=== PATIENT | male | born 1970 | race Caucasian/White ===

== ENCOUNTER 2017-03-10 11:55 | Day surgery (SDC) | payer OTHER ==
[2017-03-10 12:46] LABS: Anisocytosis Slight; Basophils # (A) 0.1 k/uL (0-0.2); Basophils % (A) 1 %; Eosinophils # (A) 0.5 k/uL (0-0.7); Eosinophils % (A) 6 %; HCT 31.1 % (39.0-53.0); HGB 9.2 gm/dL (13.0-17.5); Hypochromasia Marked; Lymphocytes # (A) 1.5 k/uL (1.0-4.8); Lymphocytes % (A) 18 %; MCH 25.8 pg (25.0-35.0); MCHC 29.5 g/dL (31.0-37.0); MCV 87.4 fL (80.0-100.0); Mean Platelet Volume 7.7; Monocytes # (A) 0.6 k/uL (0-1.0); Monocytes % (A) 7 %; Neutrophils # (A) 5.3 k/uL (1.3-7.7); Neutrophils % (A) 66 %; Platelet Count 205 k/uL (150-450); RBC 3.56 m/uL (4.30-5.90); RDW 16.4 % (11.5-15.5); WBC 8.1 k/uL (3.8-10.6)
[2017-03-10 12:55] LABS: ALT 31 U/L (21-72); AST 58 U/L (17-59); Albumin 2.5 g/dL (3.5-5.0); Alkaline Phosphatase 168 U/L (38-126); Anion Gap 9 mmol/L; Blood Urea Nitrogen 10 mg/dL (9-20); Calcium 8.3 mg/dL (8.4-10.2); Carbon Dioxide 24 mmol/L (22-30); Chloride 104 mmol/L (98-107); Glucose 169 mg/dL (74-99); Potassium 4.3 mmol/L (3.5-5.1); Sodium 137 mmol/L (137-145); Total Bilirubin 1.5 mg/dL (0.2-1.3); Total Protein 6.8 g/dL (6.3-8.2)
[2017-03-10 12:59] LABS: INR 1.4 (<1.2); Partial Thromboplastin Time 27.6 sec (22.0-30.0); Prothrombin Time 13.5 sec (9.0-12.0)
[2017-03-10 13:39] VITALS: RESP 16; TEMP 97.8
[2017-03-10] MEDS: ALBUMIN HUMAN 25% 50 ML in EMPTY BAG 1 BAG IVPB SCH ×4 (14:01→15:02)
[2017-03-10 15:28] VITALS: BP 137/84; PULSE 92
--- NOTE | 2017-03-10 16:02 | US ---
EXAMINATION TYPE: US paracentesis abd w/image DATE OF EXAM: 03/10/2017 COMPARISON: NONE HISTORY: Ascites. PROCEDURE: Maximal barrier technique was utilized. The skin overlying a suitable pocket of fluid was localized with ultrasound and the overlying skin was prepped and draped. Ultrasound was utilized with sterile technique. Lidocaine was used for local anesthesia and a skin carlos made with a scalpel. Catheter was advanced under direct ultrasound guidance into a suitable pocket of fluid and approximately 8.4 liter s of serous fluid were removed. Catheter was withdrawn and hemostasis achieved. There is no immedia te complication; the patient is discharged in stable condition. IMPRESSION: STATUS POST ULTRASOUND GUIDED PARACENTESIS FOR PALLIATION OF ASCITES. THIS PROCEDURE WA S PERFORMED BY THE UNDERSIGNED.
== END 2017-03-10 15:40 | disposition home or self-care (01) ==
LOC: RADPROMAIN 11:55
DX: K70.31 Alcoholic cirrhosis of liver with ascites (principal)
CPT/HCPCS: 80053; 85025; 85610; 85730; 82105; 96365; 36415; 49083; P9047

== ENCOUNTER 2017-04-07 11:57 | Day surgery (SDC) | payer OTHER ==
[2017-04-07 13:15] LABS: Mean Platelet Volume 7.4
[2017-04-07 13:22] LABS: INR 1.4 (<1.2); Prothrombin Time 13.3 sec (9.0-12.0)
[2017-04-07 13:57] VITALS: RESP 18; TEMP 98.1
[2017-04-07] MEDS: ALBUMIN HUMAN 25% 50 ML in EMPTY BAG 1 BAG IVPB SCH ×4 (14:18→15:12)
[2017-04-07 14:28] LABS: Anisocytosis Slight; HCT 28.4 % (39.0-53.0); HGB 8.4 gm/dL (13.0-17.5); Hypochromasia Marked; MCH 24.2 pg (25.0-35.0); MCHC 29.6 g/dL (31.0-37.0); RBC 3.47 m/uL (4.30-5.90); RDW 16.2 % (11.5-15.5); WBC 5.7 k/uL (3.8-10.6)
[2017-04-07 14:36] LABS: ALT 15 U/L (21-72); AST 46 U/L (17-59); Albumin 2.7 g/dL (3.5-5.0); Alkaline Phosphatase 146 U/L (38-126); Anion Gap 10 mmol/L; Blood Urea Nitrogen 12 mg/dL (9-20); Calcium 8.5 mg/dL (8.4-10.2); Carbon Dioxide 25 mmol/L (22-30); Chloride 104 mmol/L (98-107); Glucose 131 mg/dL (74-99); Platelet Count 189 k/uL (150-450); Potassium 4.1 mmol/L (3.5-5.1); Sodium 139 mmol/L (137-145); Total Bilirubin 1.1 mg/dL (0.2-1.3); Total Protein 6.7 g/dL (6.3-8.2)
[2017-04-07 14:37] LABS: MCV 81.8 fL (80.0-100.0)
--- NOTE | 2017-04-07 16:11 | US ---
EXAMINATION TYPE: US paracentesis abd w/image DATE OF EXAM: 04/07/2017 COMPARISON: NONE HISTORY: Ascites. PROCEDURE: Maximal barrier technique was utilized. The skin overlying a suitable pocket of fluid was localized with ultrasound and the overlying skin was prepped and draped. Ultrasound was utilized with sterile technique. Lidocaine was used for local anesthesia and a skin carlos made with a scalpel. Catheter was advanced under direct ultrasound guidance into a suitable pocket of fluid and approximately 10 liters of serous fluid were removed. Catheter was withdrawn and hemostasis achieved. There is no immediat e complication; the patient is discharged in stable condition. IMPRESSION: STATUS POST ULTRASOUND GUIDED PARACENTESIS FOR PALLIATION OF ASCITES. THIS PROCEDURE WA S PERFORMED BY THE UNDERSIGNED.
[2017-04-07 16:15] VITALS: BP 126/72; PULSE 82
== END 2017-04-07 16:00 | disposition home or self-care (01) ==
LOC: RADPROMAIN 11:57
DX: K70.31 Alcoholic cirrhosis of liver with ascites (principal)
CPT/HCPCS: 80053; 82565; 85027; 85049; 85610; 96365; 36415; 49083; P9047

== ENCOUNTER 2020-01-26 16:19 | Emergency (ER) | payer OTHER ==
[2020-01-26 16:47] VITALS: RESP 18; TEMP 97.9
--- NOTE | 2020-01-26 17:45 | ED ---
General Adult HPI - General Chief complaint: Abdominal Pain Stated complaint: Abd Pain Time Seen by Provider: 01/26/20 17:27 Source: patient Mode of arrival: ambulatory Limitations: no limitations - History of Present Illness Initial comments: Dictation was produced using [employer] dictation software. please excuse any grammatical, word or spelling errors. This patient was cared for during a federal and state declared state of emergency secondary to Covid 19 Chief Complaint: 49-year-old male presents with abdominal ascites buildup History of Present Illness: 49-year-old male he has past medical history of cirrhosis and alcohol abuse. Patient states that he's required paracentesis in the past. Patient states over the last 2 weeks he noticed increased buildup of fluid in his abdomen. 2 years ago was less than he had a paracentesis. Patient did follow up with his primary care physician who told him that he is likely not ascites. Patient has any nausea vomiting diarrhea. No fevers. The ROS documented in this emergency department record has been reviewed and confirmed by me. Those systems with pertinent positive or negative responses have been documented in the HPI. All other systems are other negative and/or noncontributory. PHYSICAL EXAM: General Impression: Alert and oriented x3, not in acute distress HEENT: Normocephalic atraumatic, extra-ocular movements intact, pupils equal and reactive to light bilaterally, mucous membranes moist. Cardiovascular: Heart regular rate and rhythm Chest: Able to complete full sentences, no retractions, no tachypnea Abdomen: Mildly tense abdomen, positive fluid wave Musculoskeletal: Pulses present and equal in all extremities, no peripheral edema Motor: no focal deficits noted Neurological: CN II-XII grossly intact, no focal motor or sensory deficits noted Skin: Intact with no visualized rashes Psych: Normal affect and mood ED course: 49-year-old male presents with symptomatic abdominal ascites. vital signs upon arrival are within acceptable limits. Laboratory evaluation obtained. CBC shows findings within acceptable limits. Coag panel shows minor 1.5. Metabolic panel shows acute kidney injury with a creatinine of 3.44 and a BUN of 26. Slightly elevated liver markers. Urinalysis shows greater than 182 white blood cells and 20 red blood cells. Point there is concern for acute kidney injury and urinary tract infection. Patient given 1 dose of ceftriaxone. Recommended the patient that he should be admitted to the hospital for medical monitoring, treatment of his acute kidney injury and treatment of urinary tract infection. Patient would prefer to be discharged follow-up with his primary care doctor to get outpatient paracentesis. Patient understands the risk of leaving. He is strongly encouraged to reconsider and he starts to encounter any difficulties to return to the emergency department. - Related Data Home Medications Medication Instructions Recorded Confirmed Furosemide [Lasix] 40 mg PO TID 04/07/17 04/07/17 Previous Rx's Medication Instructions Recorded Folic Acid 1 mg PO DAILY@1200 #30 tab 02/16/17 Multivitamins, Thera [Multivitamin 1 each PO DAILY@1200 #30 tab 02/16/17 (formulary)] Spironolactone [Aldactone] 50 mg PO BID #60 tab 02/16/17 Thiamine [Vitamin B-1] 100 mg PO DAILY #30 tab 02/16/17 Cephalexin [Keflex] 500 mg PO Q6HR 7 Days #28 cap 01/26/20 Allergies Allergy/AdvReac Type Severity Reaction Status Date / Time No Known Allergies Allergy Verified 01/26/20 16:47 Review of Systems ROS Statement: Those systems with pertinent positive or pertinent negative responses have been documented in the HPI. ROS Other: All systems not noted in ROS Statement are negative. Past Medical History Past Medical History: No Reported History, Liver Disease Additional Past Medical History / Comment(s): pancreatitis; etoh, cirrhosis, ascites, thrombocytopenia, anemia History of Any Multi-Drug Resistant Organisms: None Reported Past Surgical History: Cholecystectomy Additional Past Surgical History / Comment(s): multiparacentesis Past Anesthesia/Blood Transfusion Reactions: No Reported Reaction Past Psychological History: No Psychological Hx Reported Smoking Status: Current every day smoker Past Alcohol Use History: None Reported, Abuse, Daily, Heavy, Occasional Past Drug Use History: None Reported - Past Family History Father Additional Family Medical History / Comment(s): back surgery Mother Additional Family Medical History / Comment(s): stomach issues on intestines with frequent blood transfusions General Exam Limitations: no limitations Course Vital Signs 01/26/20 16:42 Temperature 97.9 F Pulse Rate 95 Respiratory 18 Rate Blood Pressure 125/82 O2 Sat by Pulse 99 Oximetry Medical Decision Making - Lab Data Result diagrams: 01/26/20 18:06 01/26/20 18:06 Lab Results 01/26/20 01/26/20 01/26/20 Range/Units 18:06 18:06 18:06 WBC 9.5 (3.8-10.6) k/uL RBC 3.43 L (4.30-5.90) m/uL Hgb 12.6 L (13.0-17.5) gm/dL Hct 37.9 L (39.0-53.0) % MCV 110.5 H (80.0-100.0) fL MCH 36.7 H (25.0-35.0) pg MCHC 33.2 (31.0-37.0) g/dL RDW 14.6 (11.5-15.5) % Plt Count 168 (150-450) k/uL MPV 7.8 Neutrophils % 71 % Lymphocytes % 15 % Monocytes % 7 % Eosinophils % 5 % Basophils % 1 % Neutrophils # 6.7 (1.3-7.7) k/uL Lymphocytes # 1.4 (1.0-4.8) k/uL Monocytes # 0.6 (0-1.0) k/uL Eosinophils # 0.5 (0-0.7) k/uL Basophils # 0.1 (0-0.2) k/uL Macrocytosis Marked A PT 15.0 H (9.0-12.0) sec INR 1.5 H (<1.2) APTT 31.3 H (22.0-30.0) sec Sodium 134 L (137-145) mmol/L Potassium 4.5 (3.5-5.1) mmol/L Chloride 103 (98-107) mmol/L Carbon Dioxide 22 (22-30) mmol/L Anion Gap 9 mmol/L BUN 26 H (9-20) mg/dL Creatinine 3.44 H (0.66-1.25) mg/dL Est GFR (CKD-EPI)AfAm 23 (>60 ml/min/1.73 sqM) Est GFR (CKD-EPI)NonAf 20 (>60 ml/min/1.73 sqM) Glucose 111 H (74-99) mg/dL Calcium 8.8 (8.4-10.2) mg/dL Total Bilirubin 5.5 H (0.2-1.3) mg/dL AST 98 H (17-59) U/L ALT 33 (4-49) U/L Alkaline Phosphatase 129 H (38-126) U/L Total Protein 7.6 (6.3-8.2) g/dL Albumin 3.1 L (3.5-5.0) g/dL Lipase 337 H (23-300) U/L Urine Color Urine Appearance (Clear) Urine pH (5.0-8.0) Ur Specific [place] (1.001-1.035) Urine Protein (Negative) Urine Glucose (UA) (Negative) Urine Ketones (Negative) Urine Blood (Negative) Urine Nitrite (Negative) Urine Bilirubin (Negative) Urine Urobilinogen (<2.0) mg/dL Ur Leukocyte Esterase (Negative) Urine RBC (0-5) /hpf Urine WBC (0-5) /hpf Urine WBC Clumps (None) /hpf Ur Squamous Epith Cells (0-4) /hpf Amorphous Sediment (None) /hpf Urine Bacteria (None) /hpf Hyaline Casts (0-2) /lpf Urine Mucus (None) /hpf 01/26/20 Range/Units 19:27 WBC (3.8-10.6) k/uL RBC (4.30-5.90) m/uL Hgb (13.0-17.5) gm/dL Hct (39.0-53.0) % MCV (80.0-100.0) fL MCH (25.0-35.0) pg MCHC (31.0-37.0) g/dL RDW (11.5-15.5) % Plt Count (150-450) k/uL MPV Neutrophils % % Lymphocytes % % Monocytes % % Eosinophils % % Basophils % % Neutrophils # (1.3-7.7) k/uL Lymphocytes # (1.0-4.8) k/uL Monocytes # (0-1.0) k/uL Eosinophils # (0-0.7) k/uL Basophils # (0-0.2) k/uL Macrocytosis PT (9.0-12.0) sec INR (<1.2) APTT (22.0-30.0) sec Sodium (137-145) mmol/L Potassium (3.5-5.1) mmol/L Chloride (98-107) mmol/L Carbon Dioxide (22-30) mmol/L Anion Gap mmol/L BUN (9-20) mg/dL Creatinine (0.66-1.25) mg/dL Est GFR (CKD-EPI)AfAm (>60 ml/min/1.73 sqM) Est GFR (CKD-EPI)NonAf (>60 ml/min/1.73 sqM) Glucose (74-99) mg/dL Calcium (8.4-10.2) mg/dL Total Bilirubin (0.2-1.3) mg/dL AST (17-59) U/L ALT (4-49) U/L Alkaline Phosphatase (38-126) U/L Total Protein (6.3-8.2) g/dL Albumin (3.5-5.0) g/dL Lipase (23-300) U/L Urine Color Dark Brown Urine Appearance Turbid (Clear) Urine pH 5.0 (5.0-8.0) Ur Specific [place] 1.024 (1.001-1.035) Urine Protein 1+ H (Negative) Urine Glucose (UA) Negative (Negative) Urine Ketones Negative (Negative) Urine Blood Moderate H (Negative) Urine Nitrite Negative (Negative) Urine Bilirubin 1+ H (Negative) Urine Urobilinogen 4.0 (<2.0) mg/dL Ur Leukocyte Esterase Large H (Negative) Urine RBC 28 H (0-5) /hpf Urine WBC >182 H (0-5) /hpf Urine WBC Clumps Many H (None) /hpf Ur Squamous Epith Cells 1 (0-4) /hpf Amorphous Sediment Rare H (None) /hpf Urine Bacteria Occasional H (None) /hpf Hyaline Casts 187 H (0-2) /lpf Urine Mucus Occasional H (None) /hpf Disposition Clinical Impression: Ascites, Acute kidney injury, UTI (urinary tract infection) Disposition: HOME SELF-CARE Condition: Critical Additional Instructions: Call [phone]. This is the number for interventional radiology nurses. They will arrange for outpatient paracentesis. Call first thing in the morning Wednesday. If he feels like his symptoms are getting worse including worsening abdominal pain, fever or difficulty breathing please come to the emergency Department immediately.. 1. you have symptomatic ascites that will need to be addressed on outpatient paracentesis. please call number provided to you for scheduling of paracentesis 2. you have significantly elevated renal markers. creatinine of 3.44 and BN of 26. this is consistent with acute kidney injury. if this gets worse you could have kidney failure and require dialysis. please hydrate yourself as much as possible 3. there are also signs of urinary tract infection. 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 please seek medical attention immediately with any worsening symptoms. especially feeling faint, fever, difficulty in breathing or worsening pain Prescriptions: Cephalexin [Keflex] 500 mg PO Q6HR 7 Days #28 cap Is patient prescribed a controlled substance at d/c from ED?: No Referrals: Nonstaff,Physician [Primary Care Provider] - 1-2 days Time of Disposition: 20:05
[2020-01-26 18:15] LABS: Basophils # (A) 0.1 k/uL (0-0.2); Basophils % (A) 1 %; Eosinophils # (A) 0.5 k/uL (0-0.7); Eosinophils % (A) 5 %; HCT 37.9 % (39.0-53.0); HGB 12.6 gm/dL (13.0-17.5); Lymphocytes # (A) 1.4 k/uL (1.0-4.8); Lymphocytes % (A) 15 %; MCH 36.7 pg (25.0-35.0); MCHC 33.2 g/dL (31.0-37.0); MCV 110.5 fL (80.0-100.0); Macrocytosis Marked; Mean Platelet Volume 7.8; Monocytes # (A) 0.6 k/uL (0-1.0); Monocytes % (A) 7 %; Neutrophils # (A) 6.7 k/uL (1.3-7.7); Neutrophils % (A) 71 %; Platelet Count 168 k/uL (150-450); RBC 3.43 m/uL (4.30-5.90); RDW 14.6 % (11.5-15.5); WBC 9.5 k/uL (3.8-10.6)
[2020-01-26 18:23] LABS: Albumin 3.1 g/dL (3.5-5.0); Calcium 8.8 mg/dL (8.4-10.2); Potassium 4.5 mmol/L (3.5-5.1); Total Bilirubin 5.5 mg/dL (0.2-1.3); Total Protein 7.6 g/dL (6.3-8.2)
[2020-01-26 18:36] LABS: INR 1.5 (<1.2); Partial Thromboplastin Time 31.3 sec (22.0-30.0)
[2020-01-26 19:58] LABS: Amorphous Sediment,Urine Rare /hpf; Appearance,Urine Turbid (Clear); Bacteria,Urine Occasional /hpf; Bilirubin,Urine 1+ (Negative); Blood,Urine Moderate (Negative); Color,Urine Dark Brown; Glucose,Urine (UA) Negative (Negative); Hyaline Casts,Urine 187 /lpf (0-2); Ketones,Urine Negative (Negative); Leukocyte Esterase,Urine Large (Negative); Mucus,Urine Occasional /hpf; Nitrite,Urine Negative (Negative); Protein,Urine 1+ (Negative); RBC,Urine 28 /hpf (0-5); Specific Gravity,Urine 1.024 (1.001-1.035); Squamous Epithelial Cell,Urine 1 /hpf (0-4); WBC,Urine >182 /hpf (0-5)
[2020-01-26] MEDS ORDERED: cefTRIAXone IN SWFI 1,000 MG/10 ML SYRINGE IVP STA (20:00)
[2020-01-26 20:19] VITALS: BP 118/66; PULSE 90
== END 2020-01-26 20:19 | disposition home or self-care (01) ==
LOC: EC 16:19
DX: N39.0 Urinary tract infection, site not specified (principal); N17.9 Acute kidney failure, unspecified; R18.8 Other ascites; R74.8 Abnormal levels of other serum enzymes; F17.200 Nicotine dependence, unspecified, uncomplicated; Z53.20 Procedure and treatment not carried out because of patient's decision for unspecified reasons; Z90.49 Acquired absence of other specified parts of digestive tract; Z87.19 Personal history of other diseases of the digestive system; Z98.890 Other specified postprocedural states
CPT/HCPCS: 36415; 80053; 83690; 85025; 85610; 85730; 81001; 87086; 99284; 96374; J0696; 87077; 87186

== ENCOUNTER 2020-01-29 09:09 | Day surgery (SDC) | payer OTHER ==
[2020-01-29 12:40] VITALS: TEMP 98.2
[2020-01-29] MEDS: ALBUMIN HUMAN 25% 50 ML in EMPTY BAG 1 BAG IVPB SCH ×4 (13:17→14:00)
[2020-01-29 14:54] VITALS: RESP 16
[2020-01-29 14:55] VITALS: BP 133/72; PULSE 104
--- NOTE | 2020-01-29 15:48 | US ---
Ultrasound-guided paracentesis. DATE OF EXAM: 01/29/2020 CLINICAL HISTORY: Ascites The procedure was discussed with the patient. The risks, complications, benefits, and alternatives we re discussed and any questions were answered. Informed consent was obtained. The patient was placed s upine on the ultrasound table and prepped and draped in the usual sterile fashion. All elements of maximal barrier technique were utilized. Under ultrasound guidance, access into the right lower quadrant was obtained, via the paracentesis catheter system and direct ultrasound guidanc e. Approximately 11.75 liters of straw-colored fluid was removed. The patient was stable throughout the procedure and remained stable upon discharge from Department of Radiology. IMPRESSION: Successful paracentesis under ultrasound guidance.
== END 2020-01-29 14:50 | disposition home or self-care (01) ==
LOC: RADPROMAIN 09:09
PROVIDERS: ATTEND Emergency Medicine
DX: R18.8 Other ascites (principal)
CPT/HCPCS: 36415; 49083; P9047

== ENCOUNTER 2020-02-21 12:55 | Day surgery (SDC) | payer OTHER ==
[2020-02-21 13:12] VITALS: TEMP 97.7
[2020-02-21 13:21] LABS: Mean Platelet Volume 7.8; Platelet Count 119 k/uL (150-450)
[2020-02-21 13:31] LABS: African American GFR (CKD) >90 (>60 ml/min/1.73 sqM); Non-African American GFR(CKD) >90 (>60 ml/min/1.73 sqM)
[2020-02-21 13:32] LABS: INR 1.3 (<1.2); Prothrombin Time 13.7 sec (9.0-12.0)
[2020-02-21] MEDS: ALBUMIN HUMAN 25% 50 ML in EMPTY BAG 1 BAG IVPB SCH ×4 (14:33→15:59)
[2020-02-21 15:47] VITALS: RESP 18
[2020-02-21 16:21] VITALS: PULSE 90
[2020-02-21 16:39] VITALS: BP 143/79
--- NOTE | 2020-02-22 10:13 | US ---
Ultrasound-guided paracentesis. DATE OF EXAM: 02/21/2020 CLINICAL HISTORY: Ascites The procedure was discussed with the patient. The risks, complications, benefits, and alternatives we re discussed and any questions were answered. Informed consent was obtained. The patient was placed s upine on the ultrasound table and prepped and draped in the usual sterile fashion. All elements of maximal barrier technique were utilized. Under ultrasound guidance, access into the left lower quadrant was obtained, via the paracentesis catheter system and direct ultrasound guidance . Approximately 11.7 liters of straw-colored fluid was removed. The patient was stable throughout the p rocedure and remained stable upon discharge from Department of Radiology. IMPRESSION: Successful paracentesis under ultrasound guidance.
== END 2020-02-21 16:59 | disposition home or self-care (01) ==
LOC: RADPROMAIN 12:55
PROVIDERS: ATTEND Internal Medicine Gastroenterology
DX: R18.8 Other ascites (principal)
CPT/HCPCS: 82565; 85049; 85610; 36415; 49083; P9047

== ENCOUNTER 2020-03-21 12:14 | Day surgery (SDC) | payer OTHER ==
[2020-03-21 12:27] VITALS: RESP 16; TEMP 97.7
[2020-03-21 13:10] LABS: Mean Platelet Volume 8.2; Platelet Count 124 k/uL (150-450)
[2020-03-21 13:21] LABS: INR 1.4 (<1.2); Prothrombin Time 14.5 sec (9.0-12.0)
[2020-03-21] MEDS: ALBUMIN HUMAN 25% 50 ML in EMPTY BAG 1 BAG IVPB SCH ×4 (13:46→14:43)
[2020-03-21 15:23] VITALS: BP 119/73; PULSE 110
--- NOTE | 2020-03-21 16:19 | US ---
EXAMINATION TYPE: US paracentesis abd w/image DATE OF EXAM: 03/21/2020 COMPARISON: NONE HISTORY: Ascites. PROCEDURE: Maximal barrier technique was utilized. The skin overlying a suitable pocket of fluid was localized with ultrasound and the overlying skin was prepped and draped. Ultrasound was utilized with sterile technique. Lidocaine was used for local anesthesia and a skin carlos made with a scalpel. Catheter was advanced under direct ultrasound guidance into a suitable pocket of fluid and approximately 13.4 lite rs of serous fluid were removed. Catheter was withdrawn and hemostasis achieved. There is no immedi ate complication; the patient is discharged in stable condition. IMPRESSION: STATUS POST ULTRASOUND GUIDED PARACENTESIS FOR PALLIATION OF ASCITES. THIS PROCEDURE WA S PERFORMED BY THE UNDERSIGNED.
== END 2020-03-21 15:40 | disposition home or self-care (01) ==
LOC: RADPROMAIN 12:14
PROVIDERS: ATTEND Physician Assistant
DX: R18.8 Other ascites (principal)
CPT/HCPCS: 82565; 85049; 85610; 36415; 49083; P9047

== ENCOUNTER 2020-03-29 12:57 | Emergency (ER) | payer OTHER ==
[2020-03-29 13:46] LABS: Basophils # (A) 0.1 k/uL (0-0.2); Basophils % (A) 1 %; Eosinophils # (A) 1.7 k/uL (0-0.7); Eosinophils % (A) 21 %; HCT 32.1 % (39.0-53.0); HGB 10.5 gm/dL (13.0-17.5); Lymphocytes # (A) 1.5 k/uL (1.0-4.8); Lymphocytes % (A) 19 %; MCH 35.1 pg (25.0-35.0); MCHC 32.9 g/dL (31.0-37.0); MCV 106.7 fL (80.0-100.0); Macrocytosis Moderate; Mean Platelet Volume 7.7; Monocytes # (A) 0.6 k/uL (0-1.0); Monocytes % (A) 8 %; Neutrophils # (A) 3.9 k/uL (1.3-7.7); Neutrophils % (A) 49 %; Platelet Count 139 k/uL (150-450); RDW 13.6 % (11.5-15.5)
[2020-03-29 13:56] LABS: Albumin 2.7 g/dL (3.5-5.0); Calcium 8.3 mg/dL (8.4-10.2); Potassium 4.5 mmol/L (3.5-5.1); Total Bilirubin 2.3 mg/dL (0.2-1.3); Total Protein 6.5 g/dL (6.3-8.2)
[2020-03-29 14:02] LABS: INR 1.3 (<1.2)
[2020-03-29 14:03] LABS: Partial Thromboplastin Time 28.7 sec (22.0-30.0); Prothrombin Time 13.4 sec (9.0-12.0)
[2020-03-29 14:05] LABS: Appearance,Urine Clear (Clear); Bilirubin,Urine Negative (Negative); Blood,Urine Negative (Negative); Color,Urine Yellow; Glucose,Urine (UA) Negative (Negative); Hyaline Casts,Urine 18 /lpf (0-2); Ketones,Urine Trace (Negative); Leukocyte Esterase,Urine Small (Negative); Mucus,Urine Rare /hpf; Nitrite,Urine Negative (Negative); PH, Urine 5.5 (5.0-8.0); Protein,Urine Trace (Negative); RBC,Urine 1 /hpf (0-5); Specific Gravity,Urine 1.025 (1.001-1.035); Squamous Epithelial Cell,Urine <1 /hpf (0-4); WBC,Urine 4 /hpf (0-5)
[2020-03-29 14:23] VITALS: RESP 18
[2020-03-29] MEDS: ALBUMIN HUMAN 25% 50 ML in EMPTY BAG 1 BAG IVPB SCH ×4 (17:10→18:21)
--- NOTE | 2020-03-29 17:50 | ED ---
General Adult HPI - General Chief complaint: Urogenital Stated complaint: Male , unable to urinate Time Seen by Provider: 03/29/20 13:12 Source: patient Mode of arrival: ambulatory Limitations: no limitations - History of Present Illness Initial comments: Patient complains of swelling. He has a history of liver disease. He has cirrhosis. He has recurrent ascites. He needs to have the ascites drained. He has no fever or chills. He has no belly pain. He has no back pain. He has no blood in the stool. He denies any shortness of breath. He has no chest pain. Severity scale (1-10): 0 - Related Data Home Medications Medication Instructions Recorded Confirmed Cephalexin [Keflex] 500 mg PO Q6H 03/21/20 03/29/20 Furosemide [Lasix] 20 mg PO BID 03/29/20 03/29/20 Melatonin 3 mg PO HS 03/29/20 03/29/20 Multivitamins, Thera [Multivitamin 1 tab PO HS 03/29/20 03/29/20 (formulary)] Spironolactone 25 mg PO BID 03/29/20 03/29/20 Allergies Allergy/AdvReac Type Severity Reaction Status Date / Time No Known Allergies Allergy Verified 03/29/20 17:12 Review of Systems ROS Statement: Those systems with pertinent positive or pertinent negative responses have been documented in the HPI. ROS Other: All systems not noted in ROS Statement are negative. Past Medical History Past Medical History: Liver Disease Additional Past Medical History / Comment(s): pancreatitis; etoh, cirrhosis, ascites, thrombocytopenia, anemia History of Any Multi-Drug Resistant Organisms: None Reported Past Surgical History: Cholecystectomy Additional Past Surgical History / Comment(s): multiple large volume paracentesis procedures Past Anesthesia/Blood Transfusion Reactions: No Reported Reaction Past Psychological History: No Psychological Hx Reported Smoking Status: Current every day smoker Past Alcohol Use History: None Reported Past Drug Use History: None Reported - Past Family History Father Additional Family Medical History / Comment(s): back surgery Mother Additional Family Medical History / Comment(s): stomach issues on intestines with frequent blood transfusions General Exam Limitations: no limitations General appearance: alert, in no apparent distress Head exam: Present: atraumatic, normocephalic, normal inspection Eye exam: Present: normal appearance, PERRL, EOMI. Absent: scleral icterus, conjunctival injection, periorbital swelling ENT exam: Present: normal exam, mucous membranes moist Neck exam: Present: normal inspection. Absent: tenderness, meningismus, lymphadenopathy Respiratory exam: Present: normal lung sounds bilaterally. Absent: respiratory distress, wheezes, rales, rhonchi, stridor Cardiovascular Exam: Present: regular rate, normal rhythm, normal heart sounds. Absent: systolic murmur, diastolic murmur, rubs, gallop, clicks GI/Abdominal exam: Present: distended. Absent: tenderness, guarding, rebound, rigid Extremities exam: Present: normal inspection, full ROM, normal capillary refill. Absent: tenderness, pedal edema, joint swelling, calf tenderness Back exam: Present: normal inspection Neurological exam: Present: alert, oriented X3, CN II-XII intact Psychiatric exam: Present: normal affect, normal mood Skin exam: Present: warm, dry, intact, normal color. Absent: rash Course Vital Signs 03/29/20 03/29/20 03/29/20 12:59 14:22 14:50 Temperature 97.8 F Pulse Rate 101 H 83 Pulse Rate [ 84 Pulse Oximetery ] Respiratory 20 18 18 Rate Blood Pressure 167/99 137/87 Blood Pressure 152/82 [Right Arm] O2 Sat by Pulse 100 99 Oximetry 03/29/20 03/29/20 03/29/20 15:03 15:16 15:32 Temperature Pulse Rate Pulse Rate [ 83 84 87 Pulse Oximetery ] Respiratory 18 18 18 Rate Blood Pressure Blood Pressure 134/89 139/86 147/84 [Right Arm] O2 Sat by Pulse Oximetry 03/29/20 03/29/20 03/29/20 15:47 16:01 16:20 Temperature Pulse Rate Pulse Rate [ 91 93 94 Pulse Oximetery ] Respiratory 18 18 18 Rate Blood Pressure Blood Pressure 144/75 139/72 133/73 [Right Arm] O2 Sat by Pulse 99 98 99 Oximetry 03/29/20 03/29/20 17:00 17:37 Temperature Pulse Rate 83 83 Pulse Rate [ Pulse Oximetery ] Respiratory 18 18 Rate Blood Pressure 123/68 114/69 Blood Pressure [Right Arm] O2 Sat by Pulse 98 99 Oximetry Medical Decision Making - Medical Decision Making Patient presents with ascites. I consult to interventional radiology. They have To the ascites. He is feeling better. He is stable for discharge. - Lab Data Result diagrams: 03/29/20 13:34 03/29/20 13:34 Lab Results 03/29/20 03/29/20 03/29/20 Range/Units 13:34 13:34 13:34 WBC 8.0 (3.8-10.6) k/uL RBC 3.00 L (4.30-5.90) m/uL Hgb 10.5 L (13.0-17.5) gm/dL Hct 32.1 L (39.0-53.0) % MCV 106.7 H (80.0-100.0) fL MCH 35.1 H (25.0-35.0) pg MCHC 32.9 (31.0-37.0) g/dL RDW 13.6 (11.5-15.5) % Plt Count 139 L (150-450) k/uL MPV 7.7 Neutrophils % 49 % Lymphocytes % 19 % Monocytes % 8 % Eosinophils % 21 % Basophils % 1 % Neutrophils # 3.9 (1.3-7.7) k/uL Lymphocytes # 1.5 (1.0-4.8) k/uL Monocytes # 0.6 (0-1.0) k/uL Eosinophils # 1.7 H (0-0.7) k/uL Basophils # 0.1 (0-0.2) k/uL Manual Slide Review Performed Macrocytosis Moderate PT 13.4 H (9.0-12.0) sec INR 1.3 H (<1.2) APTT 28.7 (22.0-30.0) sec Sodium (137-145) mmol/L Potassium (3.5-5.1) mmol/L Chloride (98-107) mmol/L Carbon Dioxide (22-30) mmol/L Anion Gap mmol/L BUN (9-20) mg/dL Creatinine (0.66-1.25) mg/dL Est GFR (CKD-EPI)AfAm (>60 ml/min/1.73 sqM) Est GFR (CKD-EPI)NonAf (>60 ml/min/1.73 sqM) Glucose (74-99) mg/dL Calcium (8.4-10.2) mg/dL Total Bilirubin (0.2-1.3) mg/dL AST (17-59) U/L ALT (4-49) U/L Alkaline Phosphatase (38-126) U/L Total Protein (6.3-8.2) g/dL Albumin (3.5-5.0) g/dL Lipase (23-300) U/L Urine Color Yellow Urine Appearance Clear (Clear) Urine pH 5.5 (5.0-8.0) Ur Specific [place] 1.025 (1.001-1.035) Urine Protein Trace H (Negative) Urine Glucose (UA) Negative (Negative) Urine Ketones Trace H (Negative) Urine Blood Negative (Negative) Urine Nitrite Negative (Negative) Urine Bilirubin Negative (Negative) Urine Urobilinogen 2.0 (<2.0) mg/dL Ur Leukocyte Esterase Small H (Negative) Urine RBC 1 (0-5) /hpf Urine WBC 4 (0-5) /hpf Ur Squamous Epith Cells <1 (0-4) /hpf Hyaline Casts 18 H (0-2) /lpf Urine Mucus Rare H (None) /hpf 03/29/20 Range/Units 13:34 WBC (3.8-10.6) k/uL RBC (4.30-5.90) m/uL Hgb (13.0-17.5) gm/dL Hct (39.0-53.0) % MCV (80.0-100.0) fL MCH (25.0-35.0) pg MCHC (31.0-37.0) g/dL RDW (11.5-15.5) % Plt Count (150-450) k/uL MPV Neutrophils % % Lymphocytes % % Monocytes % % Eosinophils % % Basophils % % Neutrophils # (1.3-7.7) k/uL Lymphocytes # (1.0-4.8) k/uL Monocytes # (0-1.0) k/uL Eosinophils # (0-0.7) k/uL Basophils # (0-0.2) k/uL Manual Slide Review Macrocytosis PT (9.0-12.0) sec INR (<1.2) APTT (22.0-30.0) sec Sodium 136 L (137-145) mmol/L Potassium 4.5 (3.5-5.1) mmol/L Chloride 104 (98-107) mmol/L Carbon Dioxide 23 (22-30) mmol/L Anion Gap 9 mmol/L BUN 26 H (9-20) mg/dL Creatinine 1.24 (0.66-1.25) mg/dL Est GFR (CKD-EPI)AfAm 78 (>60 ml/min/1.73 sqM) Est GFR (CKD-EPI)NonAf 68 (>60 ml/min/1.73 sqM) Glucose 105 H (74-99) mg/dL Calcium 8.3 L (8.4-10.2) mg/dL Total Bilirubin 2.3 H (0.2-1.3) mg/dL AST 69 H (17-59) U/L ALT 20 (4-49) U/L Alkaline Phosphatase 159 H (38-126) U/L Total Protein 6.5 (6.3-8.2) g/dL Albumin 2.7 L (3.5-5.0) g/dL Lipase 444 H (23-300) U/L Urine Color Urine Appearance (Clear) Urine pH (5.0-8.0) Ur Specific [place] (1.001-1.035) Urine Protein (Negative) Urine Glucose (UA) (Negative) Urine Ketones (Negative) Urine Blood (Negative) Urine Nitrite (Negative) Urine Bilirubin (Negative) Urine Urobilinogen (<2.0) mg/dL Ur Leukocyte Esterase (Negative) Urine RBC (0-5) /hpf Urine WBC (0-5) /hpf Ur Squamous Epith Cells (0-4) /hpf Hyaline Casts (0-2) /lpf Urine Mucus (None) /hpf Disposition Clinical Impression: Ascites Disposition: HOME SELF-CARE Condition: Good Instructions (If sedation given, give patient instructions): Ascites (ED) Is patient prescribed a controlled substance at d/c from ED?: No Referrals: Fuentes Elise MD [Primary Care Provider] - 1-2 days Lobo Carvajal MD [STAFF PHYSICIAN] - 1-2 days
[2020-03-29 18:33] VITALS: BP 114/63; PULSE 86; TEMP 97.7
--- NOTE | 2020-03-31 07:13 | US ---
EXAMINATION TYPE: US paracentesis abd w/image DATE OF EXAM: 03/29/2020 CLINICAL HISTORY: Ascites The procedure was discussed with the patient. The risks, complications, benefits, and alternatives we re discussed and any questions were answered. Informed consent was obtained. The patient was placed s upine on the ultrasound table and prepped and draped in the usual sterile fashion. All elements of maximal barrier technique were utilized. Under ultrasound guidance, access into the 14.3 lower quadrant was obtained, via the paracentesis catheter system and direct ultrasound guidance . Approximately right liters of straw-colored fluid was removed. The patient was stable throughout the procedure and remained stable upon discharge from Department of Radiology. IMPRESSION: Successful therapeutic paracentesis under ultrasound guidance.
== END 2020-03-29 18:39 | disposition home or self-care (01) ==
LOC: EC 12:57
DX: R18.8 Other ascites (principal); F17.200 Nicotine dependence, unspecified, uncomplicated; Z79.899 Other long term (current) drug therapy; Z79.890 Hormone replacement therapy
CPT/HCPCS: 36415; 80053; 83690; 85025; 85610; 85730; 81001; 49083; 99284; 96365; P9047

== ENCOUNTER 2020-04-18 12:13 | Day surgery (SDC) | payer OTHER ==
[2020-04-18 12:30] VITALS: RESP 16; TEMP 97.7
[2020-04-18 12:47] LABS: INR 1.4 (<1.2); Prothrombin Time 13.8 sec (9.0-12.0)
[2020-04-18 12:49] LABS: African American GFR (CKD) >90 (>60 ml/min/1.73 sqM); Non-African American GFR(CKD) >90 (>60 ml/min/1.73 sqM)
[2020-04-18 12:59] LABS: Mean Platelet Volume 8.1; Platelet Count 119 k/uL (150-450)
[2020-04-18] MEDS: ALBUMIN HUMAN 25% 50 ML in EMPTY BAG 1 BAG IVPB SCH ×4 (14:00→14:54)
[2020-04-18 15:40] VITALS: BP 124/71; PULSE 94
--- NOTE | 2020-04-18 16:53 | US ---
EXAMINATION TYPE: US paracentesis abd w/image DATE OF EXAM: 04/18/2020 COMPARISON: NONE HISTORY: Ascites. PROCEDURE: Maximal barrier technique was utilized. The skin overlying a suitable pocket of fluid was localized with ultrasound and the overlying skin was prepped and draped. Ultrasound was utilized with sterile technique. Lidocaine was used for local anesthesia and a skin carlos made with a scalpel. Catheter was advanced under direct ultrasound guidance into a suitable pocket of fluid and approximately 14.6 lite rs of serous fluid were removed. Catheter was withdrawn and hemostasis achieved. There is no immedi ate complication; the patient is discharged in stable condition. IMPRESSION: STATUS POST ULTRASOUND GUIDED PARACENTESIS FOR PALLIATION OF ASCITES. THIS PROCEDURE WA S PERFORMED BY THE UNDERSIGNED.
== END 2020-04-18 15:57 | disposition home or self-care (01) ==
LOC: RADPROMAIN 12:13
PROVIDERS: ATTEND Physician Assistant
DX: R18.8 Other ascites (principal)
CPT/HCPCS: 82565; 85049; 85610; 36415; 49083; P9047

== ENCOUNTER 2020-04-30 08:34 | Day surgery (SDC) | payer OTHER ==
[2020-04-30 09:30] VITALS: TEMP 97.8
[2020-04-30 09:31] LABS: Mean Platelet Volume 7.7; Platelet Count 119 k/uL (150-450)
[2020-04-30 09:35] LABS: INR 1.3 (<1.2); Prothrombin Time 13.4 sec (9.0-12.0)
[2020-04-30 09:38] LABS: African American GFR (CKD) >90 (>60 ml/min/1.73 sqM); Non-African American GFR(CKD) >90 (>60 ml/min/1.73 sqM)
[2020-04-30] MEDS: ALBUMIN HUMAN 25% 50 ML in EMPTY BAG 1 BAG IVPB SCH ×4 (10:07→10:58)
[2020-04-30 12:13] VITALS: BP 120/74; PULSE 91; RESP 16
--- NOTE | 2020-04-30 16:03 | US ---
Ultrasound-guided paracentesis. DATE OF EXAM: 04/30/2020 CLINICAL HISTORY: Ascites The procedure was discussed with the patient. The risks, complications, benefits, and alternatives we re discussed and any questions were answered. Informed consent was obtained. The patient was placed s upine on the ultrasound table and prepped and draped in the usual sterile fashion. All elements of maximal barrier technique were utilized. Under ultrasound guidance, access into the right lower quadrant was obtained, via the paracentesis catheter system and direct ultrasound guidanc e. Approximately 11.5 liters of straw-colored fluid was removed. The patient was stable throughout the p rocedure and remained stable upon discharge from Department of Radiology. IMPRESSION: Successful paracentesis under ultrasound guidance.
== END 2020-04-30 11:47 | disposition home or self-care (01) ==
LOC: RADPROMAIN 08:34
PROVIDERS: ATTEND Internal Medicine Gastroenterology
DX: R18.8 Other ascites (principal)
CPT/HCPCS: 82565; 85049; 85610; 36415; 49083; P9047

== ENCOUNTER 2020-05-07 12:22 | Day surgery (SDC) | payer OTHER ==
[2020-05-07 12:56] LABS: Mean Platelet Volume 8.6; Platelet Count 115 k/uL (150-450)
[2020-05-07 13:05] LABS: African American GFR (CKD) >90 (>60 ml/min/1.73 sqM); Non-African American GFR(CKD) >90 (>60 ml/min/1.73 sqM)
[2020-05-07 13:19] LABS: INR 1.2 (<1.2); Prothrombin Time 12.5 sec (9.0-12.0)
[2020-05-07] MEDS: ALBUMIN HUMAN 25% 50 ML in EMPTY BAG 1 BAG IVPB SCH ×4 (13:30→14:23)
[2020-05-07 13:42] VITALS: RESP 18; TEMP 98.1
[2020-05-07 16:00] VITALS: BP 121/65; PULSE 94
--- NOTE | 2020-05-08 09:11 | US ---
Ultrasound-guided paracentesis. DATE OF EXAM: 05/07/2020 CLINICAL HISTORY: Ascites The procedure was discussed with the patient. The risks, complications, benefits, and alternatives we re discussed and any questions were answered. Informed consent was obtained. The patient was placed s upine on the ultrasound table and prepped and draped in the usual sterile fashion. All elements of maximal barrier technique were utilized. Under ultrasound guidance, access into the right lower quadrant was obtained, via the paracentesis catheter system and direct ultrasound guidanc e. Approximately 15 liters of straw-colored fluid was removed. The patient was stable throughout the pro cedure and remained stable upon discharge from Department of Radiology. IMPRESSION: Successful paracentesis under ultrasound guidance.
== END 2020-05-07 16:10 | disposition home or self-care (01) ==
LOC: RADPROMAIN 12:22
PROVIDERS: ATTEND Internal Medicine Gastroenterology
DX: R18.8 Other ascites (principal)
CPT/HCPCS: 82565; 85049; 85610; 36415; 49083; P9047

== ENCOUNTER 2020-05-14 12:20 | Day surgery (SDC) | payer OTHER ==
[2020-05-14 12:54] VITALS: TEMP 98.1
[2020-05-14 13:18] LABS: African American GFR (CKD) >90 (>60 ml/min/1.73 sqM); Non-African American GFR(CKD) >90 (>60 ml/min/1.73 sqM)
[2020-05-14 13:22] LABS: INR 1.2 (<1.2); Prothrombin Time 12.3 sec (9.0-12.0)
[2020-05-14 13:24] LABS: Mean Platelet Volume 7.7
[2020-05-14 13:31] LABS: Platelet Count 192 k/uL (150-450)
[2020-05-14] MEDS: ALBUMIN HUMAN 25% 50 ML in EMPTY BAG 1 BAG IVPB SCH ×4 (14:03→14:46)
[2020-05-14 15:56] VITALS: BP 127/75; PULSE 87; RESP 18
--- NOTE | 2020-05-14 16:05 | US ---
EXAMINATION TYPE: US paracentesis abd w/image DATE OF EXAM: 05/14/2020 COMPARISON: NONE HISTORY: Ascites. PROCEDURE: Maximal barrier technique was utilized. The skin overlying a suitable pocket of fluid was localized with ultrasound and the overlying skin was prepped and draped. Ultrasound was utilized with sterile technique. Lidocaine was used for local anesthesia and a skin carlos made with a scalpel. Catheter was advanced under direct ultrasound guidance into a suitable pocket of fluid and approximately 11.3 lite rs of serous fluid were removed. Catheter was withdrawn and hemostasis achieved. There is no immedi ate complication; the patient is discharged in stable condition. IMPRESSION: STATUS POST ULTRASOUND GUIDED PARACENTESIS FOR PALLIATION OF ASCITES. THIS PROCEDURE WA S PERFORMED BY THE UNDERSIGNED.
== END 2020-05-14 15:55 | disposition home or self-care (01) ==
LOC: RADPROMAIN 12:20
PROVIDERS: ATTEND Internal Medicine Gastroenterology
DX: K70.31 Alcoholic cirrhosis of liver with ascites (principal)
CPT/HCPCS: 82565; 85049; 85610; 36415; 49083; P9047

== ENCOUNTER 2020-05-22 12:13 | Day surgery (SDC) | payer OTHER ==
[2020-05-22 12:57] LABS: Platelet Count 157 k/uL (150-450)
[2020-05-22 13:03] LABS: INR 1.2 (<1.2); Prothrombin Time 12.6 sec (9.0-12.0)
[2020-05-22] MEDS: ALBUMIN HUMAN 25% 50 ML in EMPTY BAG 1 BAG IVPB SCH ×4 (13:08→14:25)
[2020-05-22 13:47] VITALS: RESP 18; TEMP 98.1
[2020-05-22 13:54] LABS: African American GFR (CKD) >90 (>60 ml/min/1.73 sqM); Non-African American GFR(CKD) >90 (>60 ml/min/1.73 sqM)
[2020-05-22 15:51] VITALS: BP 134/70; PULSE 84
--- NOTE | 2020-05-23 09:52 | US ---
EXAMINATION TYPE: US paracentesis abd w/image DATE OF EXAM: 05/22/2020 CLINICAL HISTORY: Ascites The procedure was discussed with the patient. The risks, complications, benefits, and alternatives we re discussed and any questions were answered. Informed consent was obtained. The patient was placed s upine on the ultrasound table and prepped and draped in the usual sterile fashion. All elements of maximal barrier technique were utilized. Under ultrasound guidance, access into the right lower quadrant was obtained, via the paracentesis catheter system and direct ultrasound guidanc e. Approximately 11.3 liters of straw-colored fluid was removed. The patient was stable throughout the p rocedure and remained stable upon discharge from Department of Radiology. IMPRESSION: Successful therapeutic paracentesis under ultrasound guidance.
== END 2020-05-22 15:45 | disposition home or self-care (01) ==
LOC: RADPROMAIN 12:13
PROVIDERS: ATTEND Internal Medicine Gastroenterology
DX: K73.1 Chronic lobular hepatitis, not elsewhere classified (principal)
CPT/HCPCS: 82565; 85049; 85610; 36415; 49083; P9047

== ENCOUNTER 2020-05-29 12:28 | Day surgery (SDC) | payer OTHER ==
[2020-05-29 12:58] LABS: Mean Platelet Volume 8.4; Platelet Count 130 k/uL (150-450)
[2020-05-29 13:05] LABS: African American GFR (CKD) >90 (>60 ml/min/1.73 sqM); Non-African American GFR(CKD) >90 (>60 ml/min/1.73 sqM)
[2020-05-29] MEDS: ALBUMIN HUMAN 25% 50 ML in EMPTY BAG 1 BAG IVPB SCH ×4 (13:09→13:58)
[2020-05-29 13:11] LABS: INR 1.1 (<1.2); Prothrombin Time 11.6 sec (9.0-12.0)
[2020-05-29 13:30] VITALS: TEMP 97.8
[2020-05-29 13:31] VITALS: RESP 18
[2020-05-29 16:22] VITALS: BP 135/68; PULSE 64
--- NOTE | 2020-05-29 16:28 | US ---
EXAMINATION TYPE: US paracentesis abd w/image DATE OF EXAM: 05/29/2020 COMPARISON: NONE HISTORY: Ascites. PROCEDURE: Maximal barrier technique was utilized. The skin overlying a suitable pocket of fluid was localized with ultrasound and the overlying skin was prepped and draped. Ultrasound was utilized with sterile technique. Lidocaine was used for local anesthesia and a skin carlos made with a scalpel. Catheter was advanced under direct ultrasound guidance into a suitable pocket of fluid and approximately 10.1 lite rs of serous fluid were removed. Catheter was withdrawn and hemostasis achieved. There is no immedi ate complication; the patient is discharged in stable condition. IMPRESSION: STATUS POST ULTRASOUND GUIDED PARACENTESIS FOR PALLIATION OF ASCITES. THIS PROCEDURE WA S PERFORMED BY THE UNDERSIGNED.
== END 2020-05-29 16:00 | disposition home or self-care (01) ==
LOC: RADPROMAIN 12:28
PROVIDERS: ATTEND Internal Medicine Gastroenterology
DX: K70.31 Alcoholic cirrhosis of liver with ascites (principal)
CPT/HCPCS: 82565; 85049; 85610; 36415; 49083; P9047

== ENCOUNTER 2020-06-05 12:17 | Day surgery (SDC) | payer OTHER ==
[2020-06-05 12:57] LABS: Platelet Count 139 k/uL (150-450)
[2020-06-05 13:09] LABS: African American GFR (CKD) >90 (>60 ml/min/1.73 sqM); Non-African American GFR(CKD) >90 (>60 ml/min/1.73 sqM)
[2020-06-05 13:16] LABS: INR 1.1 (<1.2); Prothrombin Time 11.8 sec (9.0-12.0)
[2020-06-05] MEDS: ALBUMIN HUMAN 25% 50 ML in EMPTY BAG 1 BAG IVPB SCH ×4 (13:20→14:24)
[2020-06-05 13:45] VITALS: RESP 18; TEMP 97.9
[2020-06-05 16:23] VITALS: BP 138/76; PULSE 88
--- NOTE | 2020-06-05 16:35 | US ---
EXAMINATION TYPE: US paracentesis abd w/image DATE OF EXAM: 06/05/2020 COMPARISON: NONE HISTORY: Ascites. PROCEDURE: Maximal barrier technique was utilized. The skin overlying a suitable pocket of fluid was localized with ultrasound and the overlying skin was prepped and draped. Ultrasound was utilized with sterile technique. Lidocaine was used for local anesthesia and a skin carlos made with a scalpel. Catheter was advanced under direct ultrasound guidance into a suitable pocket of fluid and approximately 10.7 lite rs of serous fluid were removed. Catheter was withdrawn and hemostasis achieved. There is no immedi ate complication; the patient is discharged in stable condition. IMPRESSION: STATUS POST ULTRASOUND GUIDED PARACENTESIS FOR PALLIATION OF ASCITES. THIS PROCEDURE WA S PERFORMED BY THE UNDERSIGNED.
== END 2020-06-05 16:20 | disposition home or self-care (01) ==
LOC: RADPROMAIN 12:17
PROVIDERS: ATTEND Physician Assistant
DX: K70.31 Alcoholic cirrhosis of liver with ascites (principal)
CPT/HCPCS: 82565; 85049; 85610; 36415; 49083; P9047

== ENCOUNTER 2020-06-18 12:11 | Day surgery (SDC) | payer OTHER ==
[2020-06-18 12:48] LABS: Mean Platelet Volume 9.2
[2020-06-18 12:50] VITALS: TEMP 98.5
[2020-06-18 12:50] LABS: African American GFR (CKD) >90 (>60 ml/min/1.73 sqM); Non-African American GFR(CKD) >90 (>60 ml/min/1.73 sqM)
[2020-06-18 12:53] LABS: INR 1.2 (<1.2); Prothrombin Time 12.3 sec (9.0-12.0)
[2020-06-18 13:21] LABS: Platelet Count 75 k/uL (150-450)
[2020-06-18] MEDS: ALBUMIN HUMAN 25% 50 ML in EMPTY BAG 1 BAG IVPB SCH ×4 (13:33→14:19)
--- NOTE | 2020-06-18 15:54 | US ---
EXAMINATION TYPE: US paracentesis abd w/image DATE OF EXAM: 06/18/2020 CLINICAL HISTORY: Ascites COMPARISON: 06/05/2020 CORRECTIONAL SECURITY OFFICER: Dr. Micki Bagley PROCEDURE: Preprocedure preliminary ultrasound imaging demonstrates large volume ascites. The procedure was discussed with the patient. The risks, complications, benefits, and alternatives we re discussed and any questions were answered. Informed consent was obtained. The patient was placed s upine on the ultrasound table and prepped and draped in the usual sterile fashion. All elements of maximal barrier technique were utilized. Under ultrasound guidance, access into the right lower quadrant was obtained with a 5 [place]ic one-step centesis catheter. Approximately 7.7 liters of clear serous fluid was removed. Drainage spontaneously stopped. Additiona l ultrasound imaging demonstrated no definitive catheter within the fluid collection, and it likely h ad become dislodged. Patient was given the decision to place new centesis catheter versus and procedu re at this point. Patient opted to end procedure. Catheter was removed and sterile bandage was applie d. The patient was stable throughout the procedure and remained stable upon discharge from Department of Radiology. IMPRESSION: Successful ultrasound-guided paracentesis, with removal of 7.7 liters of clear serous fluid.
[2020-06-18 15:55] VITALS: BP 137/77; PULSE 85; RESP 16
== END 2020-06-18 15:35 | disposition home or self-care (01) ==
LOC: RADPROMAIN 12:11
PROVIDERS: ATTEND Internal Medicine Gastroenterology
DX: K70.31 Alcoholic cirrhosis of liver with ascites (principal)
CPT/HCPCS: 82565; 85049; 85610; 36415; 49083; P9047

== ENCOUNTER 2020-06-26 12:29 | Day surgery (SDC) | payer OTHER ==
[2020-06-26 12:58] VITALS: RESP 16; TEMP 98
[2020-06-26 13:07] LABS: Mean Platelet Volume 7.8
[2020-06-26 13:11] LABS: African American GFR (CKD) >90 (>60 ml/min/1.73 sqM); Non-African American GFR(CKD) >90 (>60 ml/min/1.73 sqM)
[2020-06-26 13:12] LABS: Platelet Count 152 k/uL (150-450)
[2020-06-26 13:17] LABS: INR 1.2 (<1.2); Prothrombin Time 12.4 sec (9.0-12.0)
[2020-06-26] MEDS: ALBUMIN HUMAN 25% 50 ML in EMPTY BAG 1 BAG IVPB SCH ×4 (13:19→14:07)
[2020-06-26 15:17] VITALS: BP 121/73; PULSE 91
--- NOTE | 2020-06-26 16:11 | US ---
Ultrasound-guided paracentesis. DATE OF EXAM: 06/26/2020 CLINICAL HISTORY: Ascites The procedure was discussed with the patient. The risks, complications, benefits, and alternatives we re discussed and any questions were answered. Informed consent was obtained. The patient was placed s upine on the ultrasound table and prepped and draped in the usual sterile fashion. All elements of maximal barrier technique were utilized. Under ultrasound guidance, access into the right lower quadrant was obtained, via the paracentesis catheter system and direct ultrasound guidanc e. Approximately 12 liters of straw-colored fluid was removed. The patient was stable throughout the pro cedure and remained stable upon discharge from Department of Radiology. IMPRESSION: Successful paracentesis under ultrasound guidance.
== END 2020-06-26 15:22 | disposition home or self-care (01) ==
LOC: RADPROMAIN 12:29
PROVIDERS: ATTEND Internal Medicine Gastroenterology
DX: R18.8 Other ascites (principal)
CPT/HCPCS: 82565; 85049; 85610; 36415; 49083; P9047

== ENCOUNTER 2020-07-03 12:28 | Day surgery (SDC) | payer OTHER ==
[2020-07-03 13:37] LABS: African American GFR (CKD) >90 (>60 ml/min/1.73 sqM); Non-African American GFR(CKD) >90 (>60 ml/min/1.73 sqM)
[2020-07-03 13:50] LABS: Mean Platelet Volume 8.1
[2020-07-03 14:16] LABS: INR 1.2 (<1.2); Prothrombin Time 12.7 sec (9.0-12.0)
[2020-07-03] MEDS: ALBUMIN HUMAN 25% 50 ML in EMPTY BAG 1 BAG IVPB SCH ×4 (14:19→15:13)
[2020-07-03 14:25] VITALS: RESP 16
[2020-07-03 14:47] LABS: Platelet Count 79 k/uL (150-450)
[2020-07-03 16:18] VITALS: BP 129/75; PULSE 99
--- NOTE | 2020-07-03 16:45 | US ---
EXAMINATION TYPE: US paracentesis abd w/image DATE OF EXAM: 07/03/2020 COMPARISON: NONE HISTORY: Ascites. PROCEDURE: Maximal barrier technique was utilized. The skin overlying a suitable pocket of fluid was localized with ultrasound and the overlying skin was prepped and draped. Ultrasound was utilized with sterile technique. Lidocaine was used for local anesthesia and a skin carlos made with a scalpel. Catheter was advanced under direct ultrasound guidance into a suitable pocket of fluid and approximately 12 liters of serous fluid were removed. Catheter was withdrawn and hemostasis achieved. There is no immediat e complication; the patient is discharged in stable condition. IMPRESSION: STATUS POST ULTRASOUND GUIDED PARACENTESIS FOR PALLIATION OF ASCITES. THIS PROCEDURE WA S PERFORMED BY THE UNDERSIGNED.
== END 2020-07-03 14:20 | disposition home or self-care (01) ==
LOC: RADPROMAIN 12:28
PROVIDERS: ATTEND Internal Medicine Gastroenterology
DX: K70.31 Alcoholic cirrhosis of liver with ascites (principal)
CPT/HCPCS: 82565; 85049; 85610; 36415; 49083; P9047

== ENCOUNTER 2020-07-10 12:12 | Day surgery (SDC) | payer OTHER ==
[2020-07-10 13:13] LABS: INR 1.2 (<1.2); Prothrombin Time 12.8 sec (9.0-12.0)
[2020-07-10 13:14] LABS: ALT 20 U/L (4-49); AST 74 U/L (17-59); African American GFR (CKD) >90 (>60 ml/min/1.73 sqM); Albumin 3.3 g/dL (3.5-5.0); Alkaline Phosphatase 193 U/L (38-126); Anion Gap 6 mmol/L; Blood Urea Nitrogen 11 mg/dL (9-20); Calcium 8.4 mg/dL (8.4-10.2); Carbon Dioxide 26 mmol/L (22-30); Chloride 101 mmol/L (98-107); Glucose 117 mg/dL (74-99); Non-African American GFR(CKD) >90 (>60 ml/min/1.73 sqM); Potassium 4.3 mmol/L (3.5-5.1); Sodium 133 mmol/L (137-145); Total Bilirubin 2.3 mg/dL (0.2-1.3); Total Protein 6.8 g/dL (6.3-8.2)
[2020-07-10 13:15] LABS: Anisocytosis Slight; Basophils # (A) 0.1 k/uL (0-0.2); Basophils % (A) 1 %; Eosinophils # (A) 0.4 k/uL (0-0.7); Eosinophils % (A) 7 %; HCT 31.8 % (39.0-53.0); HGB 10.8 gm/dL (13.0-17.5); Lymphocytes % (A) 18 %; MCH 31.4 pg (25.0-35.0); MCHC 33.8 g/dL (31.0-37.0); MCV 92.9 fL (80.0-100.0); Monocytes # (A) 0.6 k/uL (0-1.0); Monocytes % (A) 11 %; Neutrophils # (A) 3.2 k/uL (1.3-7.7); Neutrophils % (A) 61 %; RBC 3.43 m/uL (4.30-5.90); RDW 16.3 % (11.5-15.5); WBC 5.3 k/uL (3.8-10.6)
[2020-07-10 13:17] LABS: Platelet Count 126 k/uL (150-450)
[2020-07-10] MEDS: ALBUMIN HUMAN 25% 50 ML in EMPTY BAG 1 BAG IVPB SCH ×4 (14:13→14:57)
[2020-07-10 14:19] VITALS: RESP 18; TEMP 98.5
[2020-07-10 16:09] VITALS: BP 127/76; PULSE 80
--- NOTE | 2020-07-10 16:40 | US ---
EXAMINATION TYPE: US paracentesis abd w/image DATE OF EXAM: 07/10/2020 COMPARISON: NONE HISTORY: Ascites. PROCEDURE: Maximal barrier technique was utilized. The skin overlying a suitable pocket of fluid was localized with ultrasound and the overlying skin was prepped and draped. Ultrasound was utilized with sterile technique. Lidocaine was used for local anesthesia and a skin carlos made with a scalpel. Catheter was advanced under direct ultrasound guidance into a suitable pocket of fluid and approximately 9.8 liter s of serous fluid were removed. Catheter was withdrawn and hemostasis achieved. There is no immedia te complication; the patient is discharged in stable condition. IMPRESSION: STATUS POST ULTRASOUND GUIDED PARACENTESIS FOR PALLIATION OF ASCITES. THIS PROCEDURE WA S PERFORMED BY THE UNDERSIGNED.
[2020-07-11 00:38] LABS: Alpha Fetoprotein, Tumor Mkr 3.6 ng/mL (0.0-7.9)
[2020-07-11 02:43] LABS: Hepatitis A Antibody IgM Non-Reactive (Non-Reactive); Hepatitis B Core IgM Non-Reactive (Non-Reactive); Hepatitis B Surface Antigen Non-Reactive (Non-Reactive); Hepatitis C IgG Antibody Non-Reactive (Non-Reactive)
== END 2020-07-10 16:15 | disposition home or self-care (01) ==
LOC: RADPROMAIN 12:12
PROVIDERS: ATTEND Internal Medicine Gastroenterology
DX: K70.31 Alcoholic cirrhosis of liver with ascites (principal)
CPT/HCPCS: 80053; 80074; 85025; 85610; 82105; 36415; 49083; P9047

== ENCOUNTER 2020-07-17 12:19 | Day surgery (SDC) | payer OTHER ==
[2020-07-17 13:04] LABS: African American GFR (CKD) >90 (>60 ml/min/1.73 sqM); Non-African American GFR(CKD) >90 (>60 ml/min/1.73 sqM)
[2020-07-17 13:06] LABS: Mean Platelet Volume 8.1; Platelet Count 116 k/uL (150-450)
[2020-07-17 13:08] VITALS: RESP 16; TEMP 97.2
[2020-07-17 13:30] LABS: INR 1.3 (<1.2); Prothrombin Time 12.9 sec (9.0-12.0)
[2020-07-17] MEDS: ALBUMIN HUMAN 25% 50 ML in EMPTY BAG 1 BAG IVPB SCH ×4 (13:38→14:39)
[2020-07-17 14:41] VITALS: BP 140/76; PULSE 84
--- NOTE | 2020-07-17 15:14 | US ---
Ultrasound-guided paracentesis. DATE OF EXAM: 07/17/2020 CLINICAL HISTORY: Ascites The procedure was discussed with the patient. The risks, complications, benefits, and alternatives we re discussed and any questions were answered. Informed consent was obtained. The patient was placed s upine on the ultrasound table and prepped and draped in the usual sterile fashion. All elements of maximal barrier technique were utilized. Under ultrasound guidance, access into the right lower quadrant was obtained, via the paracentesis catheter system and direct ultrasound guidanc e. Approximately 6.7 liters of straw-colored fluid was removed. The patient was stable throughout the pr ocedure and remained stable upon discharge from Department of Radiology. IMPRESSION: Successful paracentesis under ultrasound guidance.
== END 2020-07-17 14:54 | disposition home or self-care (01) ==
LOC: RADPROMAIN 12:19
PROVIDERS: ATTEND Physician Assistant
DX: K70.31 Alcoholic cirrhosis of liver with ascites (principal)
CPT/HCPCS: 82565; 85049; 85610; 36415; 49083; P9047

== ENCOUNTER 2020-07-24 12:24 | Day surgery (SDC) | payer OTHER ==
[2020-07-24 12:52] LABS: Mean Platelet Volume 8.5; Platelet Count 104 k/uL (150-450)
[2020-07-24 12:55] VITALS: TEMP 98.2
[2020-07-24 13:00] LABS: African American GFR (CKD) >90 (>60 ml/min/1.73 sqM); Non-African American GFR(CKD) >90 (>60 ml/min/1.73 sqM)
[2020-07-24 13:09] LABS: INR 1.2 (<1.2); Prothrombin Time 12.3 sec (9.0-12.0)
[2020-07-24] MEDS: ALBUMIN HUMAN 25% 50 ML in EMPTY BAG 1 BAG IVPB SCH ×4 (13:38→14:47)
[2020-07-24 14:47] VITALS: PULSE 80
[2020-07-24 15:18] VITALS: BP 121/72; RESP 16
--- NOTE | 2020-07-24 16:03 | US ---
Ultrasound-guided paracentesis. DATE OF EXAM: 07/24/2020 CLINICAL HISTORY: Ascites The procedure was discussed with the patient. The risks, complications, benefits, and alternatives we re discussed and any questions were answered. Informed consent was obtained. The patient was placed s upine on the ultrasound table and prepped and draped in the usual sterile fashion. All elements of maximal barrier technique were utilized. Under ultrasound guidance, access into the right lower quadrant was obtained, via the paracentesis catheter system and direct ultrasound guidanc e. Approximately 8.4 liters of straw-colored fluid was removed. The patient was stable throughout the pr ocedure and remained stable upon discharge from Department of Radiology. IMPRESSION: Successful paracentesis under ultrasound guidance.
== END 2020-07-24 15:40 | disposition home or self-care (01) ==
LOC: RADPROMAIN 12:24
PROVIDERS: ATTEND Internal Medicine Gastroenterology
DX: K70.31 Alcoholic cirrhosis of liver with ascites (principal)
CPT/HCPCS: 82565; 85049; 85610; 36415; 49083; P9047

== ENCOUNTER 2020-08-07 08:02 | Day surgery (SDC) | payer OTHER ==
[2020-08-07 08:41] LABS: INR 1.3 (<1.2); Prothrombin Time 13.2 sec (9.0-12.0)
[2020-08-07 08:43] LABS: Mean Platelet Volume 8.5; Platelet Count 116 k/uL (150-450)
[2020-08-07 08:47] LABS: African American GFR (CKD) >90 (>60 ml/min/1.73 sqM); Non-African American GFR(CKD) 86 (>60 ml/min/1.73 sqM)
[2020-08-07 08:48] VITALS: TEMP 98.1
[2020-08-07] MEDS: ALBUMIN HUMAN 25% 50 ML in EMPTY BAG 1 BAG IVPB SCH ×4 (09:19→10:06)
[2020-08-07 11:26] VITALS: BP 130/80; PULSE 86; RESP 16
--- NOTE | 2020-08-07 12:57 | US ---
EXAMINATION TYPE: US paracentesis abd w/image DATE OF EXAM: 08/07/2020 COMPARISON: NONE HISTORY: Ascites. PROCEDURE: Maximal barrier technique was utilized. The skin overlying a suitable pocket of fluid was localized with ultrasound and the overlying skin was prepped and draped. Ultrasound was utilized with sterile technique. Lidocaine was used for local anesthesia and a skin carlos made with a scalpel. Catheter was advanced under direct ultrasound guidance into a suitable pocket of fluid and approximately 11.7 lite rs of serous fluid were removed. Catheter was withdrawn and hemostasis achieved. There is no immedi ate complication; the patient is discharged in stable condition. IMPRESSION: STATUS POST ULTRASOUND GUIDED PARACENTESIS FOR PALLIATION OF ASCITES. THIS PROCEDURE WA S PERFORMED BY THE UNDERSIGNED.
== END 2020-08-07 11:20 | disposition home or self-care (01) ==
LOC: RADPROMAIN 08:02
PROVIDERS: ATTEND Internal Medicine Gastroenterology
DX: R18.8 Other ascites (principal)
CPT/HCPCS: 82565; 85049; 85610; 36415; 49083; P9047

== ENCOUNTER 2020-08-14 12:25 | Day surgery (SDC) | payer OTHER ==
[2020-08-14 12:53] LABS: Mean Platelet Volume 7.7; Platelet Count 144 k/uL (150-450)
[2020-08-14 13:02] LABS: African American GFR (CKD) >90 (>60 ml/min/1.73 sqM); Non-African American GFR(CKD) >90 (>60 ml/min/1.73 sqM)
[2020-08-14 13:37] LABS: INR 1.2 (<1.2); Prothrombin Time 12.3 sec (9.0-12.0)
[2020-08-14 13:38] VITALS: TEMP 98.4
[2020-08-14] MEDS: ALBUMIN HUMAN 25% 50 ML in EMPTY BAG 1 BAG IVPB SCH ×4 (14:02→15:27)
[2020-08-14 14:27] VITALS: RESP 14
[2020-08-14 15:27] VITALS: BP 126/72; PULSE 78
--- NOTE | 2020-08-14 15:53 | US ---
Ultrasound-guided paracentesis. DATE OF EXAM: 08/14/2020 CLINICAL HISTORY: Ascites The procedure was discussed with the patient. The risks, complications, benefits, and alternatives we re discussed and any questions were answered. Informed consent was obtained. The patient was placed s upine on the ultrasound table and prepped and draped in the usual sterile fashion. All elements of maximal barrier technique were utilized. Under ultrasound guidance, access into the right lower quadrant was obtained, via the paracentesis catheter system and direct ultrasound guidanc e. Approximately 7.7 liters of straw-colored fluid was removed. The patient was stable throughout the pr ocedure and remained stable upon discharge from Department of Radiology. IMPRESSION: Successful paracentesis under ultrasound guidance.
== END 2020-08-14 15:28 | disposition home or self-care (01) ==
LOC: RADPROMAIN 12:25
PROVIDERS: ATTEND Internal Medicine Gastroenterology
DX: K70.31 Alcoholic cirrhosis of liver with ascites (principal)
CPT/HCPCS: 82565; 85049; 85610; 36415; 49083; P9047

== ENCOUNTER 2020-08-21 12:31 | Day surgery (SDC) | payer OTHER ==
[2020-08-21 12:38] VITALS: RESP 16; TEMP 98.1
[2020-08-21 13:15] LABS: African American GFR (CKD) >90 (>60 ml/min/1.73 sqM); Non-African American GFR(CKD) >90 (>60 ml/min/1.73 sqM)
[2020-08-21 13:16] LABS: Mean Platelet Volume 9.1
[2020-08-21 13:19] LABS: INR 1.2 (<1.2)
[2020-08-21 13:20] LABS: Prothrombin Time 12.3 sec (9.0-12.0)
[2020-08-21 13:33] LABS: Platelet Count 74 k/uL (150-450)
[2020-08-21] MEDS: ALBUMIN HUMAN 25% 50 ML in EMPTY BAG 1 BAG IVPB SCH ×4 (13:55→14:51)
[2020-08-21 14:58] VITALS: BP 155/80; PULSE 87
--- NOTE | 2020-08-21 16:13 | US ---
EXAMINATION TYPE: US paracentesis abd w/image DATE OF EXAM: 08/21/2020 COMPARISON: NONE HISTORY: Ascites. PROCEDURE: Maximal barrier technique was utilized. The skin overlying a suitable pocket of fluid was localized with ultrasound and the overlying skin was prepped and draped. Ultrasound was utilized with sterile technique. Lidocaine was used for local anesthesia and a skin carlos made with a scalpel. Catheter was advanced under direct ultrasound guidance into a suitable pocket of fluid and approximately 5.3 liter s of serous fluid were removed. Catheter was withdrawn and hemostasis achieved. There is no immedia te complication; the patient is discharged in stable condition. IMPRESSION: STATUS POST ULTRASOUND GUIDED PARACENTESIS FOR PALLIATION OF ASCITES. THIS PROCEDURE WA S PERFORMED BY THE UNDERSIGNED.
== END 2020-08-21 15:15 | disposition home or self-care (01) ==
LOC: RADPROMAIN 12:31
PROVIDERS: ATTEND Internal Medicine Gastroenterology
DX: R18.8 Other ascites (principal)
CPT/HCPCS: 49083; 82565; 85049; 85610; 36415; P9047

== ENCOUNTER 2020-08-22 07:03 | Day surgery (SDC) | payer OTHER ==
[2020-08-21 10:27] VITALS: BMI 30.8
[~2020-08-22 07:03] MED LIST: LACTATED RINGERS 1,000 ML IV SCH; LIDOCAINE 1% (10MG/ML) FOR IV START INTRADERMA PRN
[2020-08-22 07:17] VITALS: RESP 16; TEMP 97.4
[2020-08-22] MEDS ORDERED: MIDAZOLAM 2 MG/2 ML VIAL ONE (07:44)
[2020-08-22] MEDS ORDERED: fentaNYL (PF) 50 MCG/ML 2 ML AMP ONE (07:44)
[2020-08-22] MEDS ORDERED: PROPOFOL 10 MG/ML 20 ML VIAL IV ONE (07:44)
[2020-08-22] MEDS ORDERED: LIDOCAINE 1% INJ 10MG/ML (20 ML MDV) ONE (07:44)
--- NOTE | 2020-08-22 08:13 | P.PCN ---
Date of Procedure: 08/22/20 Description of Procedure: Brief history: Patient is a 50-year-old male presenting for outpatient EGD and colonoscopy for evaluation of alcoholic cirrhosis of the liver and screening for malignant neoplasm of the colon. He has a history of alcoholic cirrhosis with ascites. Patient admitted drinking regularly until 2017 in the midst of 2 years prior to starting drinking again currently on the weekends. He has required large-volume paracentesis and is on diuretic therapy. He denies any history of GI bleed. No family history of colon cancer. Procedure performed: Esophagogastroduodenoscopy with biopsy Colonoscopy Estimated blood loss: Minimal. Preoperative diagnosis: Alcoholic cirrhosis of the liver, variceal screening, screening for malignant neoplasm of the colon, no prior colonoscopy. Anesthesia: [facility] [place] Procedure: After informed consent was obtained from the patient was brought into the endoscopy unit and IV sedation was administered by anesthesia under continuous monitoring. Initially upper endoscopy was done. The Olympus GF 190 video endoscope was inserted into the mouth and esophagus intubated without any difficulty and was gradually advanced into the stomach and duodenum and carefully examined. The bulb and second part of the duodenum appeared normal e xcept for some mild scattered erythema suggestive of mild duodenitis with biopsies taken. The scope was then withdrawn into the stomach adequately insufflated with air and upon careful examination the antrum and body, cardia and fundus appeared normal, except for diffuse patchy erythema suggestive of mild portal hypertensive gastropathy with biopsies of antrum and body taken. The scope was then withdrawn into the esophagus. The GE junction was located at 43 cm to the incisors. It appeared regular with no erythema erosions or ulceration, however one column of small varices were noted in the distal esophagus. Rest of the esophagus appeared normal. Patient tolerated the procedure well. At this time the patient continued to remain sedation. Initial digital rectal examination was normal. Olympus CF 190 video colonoscope was then inserted into the rectum and gradually advanced to the cecum without any difficulty. Careful examination was performed as the scope was gradually being withdrawn. The prep was excellent. The cecum, ascending colon, transverse colon, descending colon, sigmoid colon and rectum appeared normal. Retroflexion was performed in the rectum and no lesions were noted, with low-grade internal hemorrhoids noted. Patient tolerated the procedure well. Impression: 1. Small varices. Mild portal hypertensive gastropathy. Mild duodenitis. Biopsies of the duodenum, antrum and body. 2. Normal-appearing colon from rectum to cecum. Internal hemorrhoids. Recommendations: Findings of this examination were discussed with the patient as well as his family. Okay to resume sodium restricted diet. Continue current medical management. Recommend patient follow up in the GI clinic in the next 2-3 weeks for discussion on possible initiation of nonselective beta nadia therapy if amenable given findings of small varices. Recommend repeat EGD in 1 year for varices and colonoscopy in 10 years for screening for malignant neoplasm of the colon.
[2020-08-22 08:27] VITALS: BP 139/80; PULSE 82
== END 2020-08-22 09:09 | disposition home or self-care (01) ==
LOC: ORWHC2ENDO 07:03
PROVIDERS: ATTEND Internal Medicine
DX: Z12.11 Encounter for screening for malignant neoplasm of colon (principal); K29.50 Unspecified chronic gastritis without bleeding; K70.30 Alcoholic cirrhosis of liver without ascites; K76.6 Portal hypertension; K29.80 Duodenitis without bleeding; K64.8 Other hemorrhoids; Z79.899 Other long term (current) drug therapy; K31.89 Other diseases of stomach and duodenum
CPT/HCPCS: 88305; 43239; J2250; J2001; J3010; J2704; G0121; 45378

== ENCOUNTER 2020-08-28 12:34 | Day surgery (SDC) | payer OTHER ==
[2020-08-28 13:11] VITALS: RESP 16; TEMP 98.3
[2020-08-28 13:18] LABS: Platelet Count 100 k/uL (150-450)
[2020-08-28 13:24] LABS: INR 1.2 (<1.2); Prothrombin Time 12.4 sec (9.0-12.0)
[2020-08-28 13:27] LABS: African American GFR (CKD) >90 (>60 ml/min/1.73 sqM); Non-African American GFR(CKD) >90 (>60 ml/min/1.73 sqM)
[2020-08-28] MEDS: ALBUMIN HUMAN 25% 50 ML in EMPTY BAG 1 BAG IVPB SCH ×4 (13:50→15:11)
[2020-08-28 15:12] VITALS: BP 135/78; PULSE 72
--- NOTE | 2020-08-28 16:43 | US ---
EXAMINATION TYPE: US paracentesis abd w/image DATE OF EXAM: 08/28/2020 CLINICAL HISTORY: Alcoholic cirrhosis of liver with ascites COMPARISON: 08/21/2020 ELECTROSTATIC PAINTER: Dr. Micki Bagley PROCEDURE: Preprocedure preliminary ultrasound imaging demonstrates large volume ascites. The procedure was discussed with the patient. The risks, complications, benefits, and alternatives we re discussed and any questions were answered. Informed consent was obtained. The patient was placed s upine on the ultrasound table and prepped and draped in the usual sterile fashion. All elements of maximal barrier technique were utilized. Under ultrasound guidance, access into the right lower quadrant was obtained with a 5 [place]ik one-step centesis catheter. Approximately 7. liters of clear serous fluid was removed. Catheter was removed and sterile bandage w as applied. The patient was stable throughout the procedure and remained stable upon discharge from [facility]. IMPRESSION: Successful ultrasound-guided paracentesis, with removal of 7.6 liters of clear serous fluid.
== END 2020-08-28 15:15 | disposition home or self-care (01) ==
LOC: RADPROMAIN 12:34
PROVIDERS: ATTEND Physician Assistant
DX: K70.31 Alcoholic cirrhosis of liver with ascites (principal)
CPT/HCPCS: 82565; 85049; 85610; 36415; 49083; P9047

== ENCOUNTER 2020-09-04 12:10 | Day surgery (SDC) | payer OTHER ==
[2020-09-04 12:38] LABS: Mean Platelet Volume 9.5; Platelet Count 124 k/uL (150-450)
[2020-09-04 12:39] VITALS: TEMP 98.1
[2020-09-04 13:08] LABS: INR 1.2 (<1.2); Prothrombin Time 12.1 sec (9.0-12.0)
[2020-09-04] MEDS: ALBUMIN HUMAN 25% 50 ML in EMPTY BAG 1 BAG IVPB SCH ×4 (13:40→14:22)
--- NOTE | 2020-09-04 15:35 | US ---
EXAMINATION TYPE: US paracentesis abd w/image DATE OF EXAM: 09/04/2020 COMPARISON: NONE HISTORY: Ascites. PROCEDURE: Maximal barrier technique was utilized. The skin overlying a suitable pocket of fluid was localized with ultrasound and the overlying skin was prepped and draped. Ultrasound was utilized with sterile technique. Lidocaine was used for local anesthesia and a skin carlos made with a scalpel. Catheter was advanced under direct ultrasound guidance into a suitable pocket of fluid and approximately 11.2 lite rs of serous fluid were removed. Catheter was withdrawn and hemostasis achieved. There is no immedi ate complication; the patient is discharged in stable condition. IMPRESSION: STATUS POST ULTRASOUND GUIDED PARACENTESIS FOR PALLIATION OF ASCITES. THIS PROCEDURE WA S PERFORMED BY THE UNDERSIGNED.
[2020-09-04 15:48] VITALS: BP 136/74; PULSE 89; RESP 16
== END 2020-09-04 15:45 | disposition home or self-care (01) ==
LOC: RADPROMAIN 12:10
PROVIDERS: ATTEND Physician Assistant
DX: K70.31 Alcoholic cirrhosis of liver with ascites (principal)
CPT/HCPCS: 82565; 85049; 85610; 36415; 49083; P9047

== ENCOUNTER 2020-09-11 12:06 | Day surgery (SDC) | payer OTHER ==
[2020-09-11 12:29] VITALS: BP 151/83; PULSE 83; RESP 16; TEMP 98
[2020-09-11 13:01] LABS: Platelet Count 124 k/uL (150-450)
[2020-09-11 13:39] LABS: Anisocytosis Slight; HCT 20.6 % (39.0-53.0); Hypochromasia Marked; MCH 27.7 pg (25.0-35.0); MCHC 30.1 g/dL (31.0-37.0); MCV 91.8 fL (80.0-100.0); RBC 2.25 m/uL (4.30-5.90); RDW 17.3 % (11.5-15.5); WBC 5.2 k/uL (3.8-10.6)
[2020-09-11 13:45] LABS: INR 1.2 (<1.2)
[2020-09-11 13:46] LABS: Prothrombin Time 12.5 sec (9.0-12.0)
[2020-09-11 13:48] LABS: HGB 6.2 gm/dL (13.0-17.5)
[2020-09-11] MEDS: ALBUMIN HUMAN 25% 50 ML in EMPTY BAG 1 BAG IVPB SCH ×2 (13:52→13:53)
== END 2020-09-11 13:30 | disposition home or self-care (01) ==
LOC: RADPROMAIN 12:06
PROVIDERS: ATTEND Physician Assistant
DX: K70.31 Alcoholic cirrhosis of liver with ascites (principal); Z53.8 Procedure and treatment not carried out for other reasons; D64.9 Anemia, unspecified
CPT/HCPCS: 36415; 82565; 85027; 85049; 85610

== ENCOUNTER 2020-09-12 17:46 | Emergency (ER) | payer OTHER ==
[2020-09-12 19:04] LABS: Anisocytosis Slight; Basophils # (A) 0.1 k/uL (0-0.2); Basophils % (A) 1 %; Eosinophils # (A) 0.5 k/uL (0-0.7); Eosinophils % (A) 8 %; Hypochromasia Moderate; Lymphocytes % (A) 16 %; MCH 28.2 pg (25.0-35.0); MCHC 31.3 g/dL (31.0-37.0); MCV 90.3 fL (80.0-100.0); Mean Platelet Volume 9.2; Monocytes # (A) 0.5 k/uL (0-1.0); Monocytes % (A) 8 %; Neutrophils # (A) 4.2 k/uL (1.3-7.7); Neutrophils % (A) 65 %; Platelet Count 134 k/uL (150-450); RDW 17.4 % (11.5-15.5); WBC 6.5 k/uL (3.8-10.6)
[2020-09-12 19:05] LABS: HCT 19.9 % (39.0-53.0); HGB 6.2 gm/dL (13.0-17.5)
[2020-09-12 19:14] LABS: INR 1.2 (<1.2); Partial Thromboplastin Time 25.1 sec (22.0-30.0); Prothrombin Time 12.6 sec (9.0-12.0)
[2020-09-12 19:20] LABS: Albumin 2.9 g/dL (3.5-5.0); Calcium 8.4 mg/dL (8.4-10.2); Magnesium 1.9 mg/dL (1.6-2.3); Potassium 4.4 mmol/L (3.5-5.1); Total Bilirubin 1.9 mg/dL (0.2-1.3)
--- NOTE | 2020-09-12 19:45 | ED ---
GI Bleed HPI - General Chief complaint: GI Bleed Stated complaint: Low hemoglobin Time Seen by Provider: 09/12/20 18:18 Source: patient Mode of arrival: ambulatory Limitations: no limitations - History of Present Illness Initial comments: Patient went to have his weekly paracentesis when he was told that his hemoglobin was low. He was sent to the [facility] department for transfusion. Patient has no fever or chills or chest pain. He has no shortness of breath. He has no lightheadedness or dizziness. He has no nausea or vomiting. He denies any blood in the stool or black or tarry stool. He denies any dysuria or hematuria. - Related Data Home Medications Medication Instructions Recorded Confirmed Furosemide [Lasix] 20 mg PO BID 03/29/20 09/11/20 Melatonin 3 mg PO HS 03/29/20 09/11/20 Spironolactone 25 mg PO BID 03/29/20 09/11/20 Acetaminophen [Tylenol Extra 1,000 mg PO Q6HR PRN 06/18/20 09/11/20 Strength] Allergies Allergy/AdvReac Type Severity Reaction Status Date / Time No Known Allergies Allergy Verified 09/12/20 17:56 Review of Systems ROS Statement: Those systems with pertinent positive or pertinent negative responses have been documented in the HPI. ROS Other: All systems not noted in ROS Statement are negative. Past Medical History Past Medical History: Liver Disease Additional Past Medical History / Comment(s): pancreatitis; etoh, cirrhosis, ascites, thrombocytopenia, anemia History of Any Multi-Drug Resistant Organisms: None Reported Past Surgical History: Cholecystectomy Additional Past Surgical History / Comment(s): multiple large volume paracentesis procedures Past Anesthesia/Blood Transfusion Reactions: No Reported Reaction Past Psychological History: No Psychological Hx Reported Smoking Status: Current every day smoker Past Alcohol Use History: Occasional Past Drug Use History: None Reported - Past Family History Father Additional Family Medical History / Comment(s): back surgery Mother Additional Family Medical History / Comment(s): stomach issues on intestines with frequent blood transfusions General Exam Limitations: no limitations General appearance: alert, in no apparent distress Head exam: Present: atraumatic, normocephalic, normal inspection Eye exam: Present: normal appearance, PERRL, EOMI. Absent: scleral icterus, conjunctival injection, periorbital swelling ENT exam: Present: normal exam, mucous membranes moist Neck exam: Present: normal inspection. Absent: tenderness, meningismus, lymphadenopathy Respiratory exam: Present: normal lung sounds bilaterally. Absent: respiratory distress, wheezes, rales, rhonchi, stridor Cardiovascular Exam: Present: regular rate, normal rhythm, normal heart sounds. Absent: systolic murmur, diastolic murmur, rubs, gallop, clicks GI/Abdominal exam: Present: soft, normal bowel sounds. Absent: distended, tenderness, guarding, rebound, rigid Extremities exam: Present: normal inspection, full ROM, normal capillary refill. Absent: tenderness, pedal edema, joint swelling, calf tenderness Back exam: Present: normal inspection Neurological exam: Present: alert, oriented X3, CN II-XII intact Psychiatric exam: Present: normal affect, normal mood Skin exam: Present: warm, dry, intact, normal color. Absent: rash Course Vital Signs 09/12/20 17:52 Temperature 97.6 F Pulse Rate 93 Respiratory 17 Rate Blood Pressure 167/84 O2 Sat by Pulse 100 Oximetry Medical Decision Making - Medical Decision Making Patient sent to the ER for a blood transfusion. He provided written consent. His hemoglobin is 6.2. We will transfuse him 1 unit packed red blood cells. I offered to admit the patient, which she declined. He does not want to stay for further workup. He would prefer to go home. - Lab Data Result diagrams: 09/12/20 18:48 09/12/20 18:48 Lab Results 09/12/20 09/12/20 09/12/20 Range/Units 18:48 18:48 18:48 WBC 6.5 (3.8-10.6) k/uL RBC 2.20 L (4.30-5.90) m/uL Hgb 6.2 L* (13.0-17.5) gm/dL Hct 19.9 L* (39.0-53.0) % MCV 90.3 (80.0-100.0) fL MCH 28.2 (25.0-35.0) pg MCHC 31.3 (31.0-37.0) g/dL RDW 17.4 H (11.5-15.5) % Plt Count 134 L (150-450) k/uL MPV 9.2 Neutrophils % 65 % Lymphocytes % 16 % Monocytes % 8 % Eosinophils % 8 % Basophils % 1 % Neutrophils # 4.2 (1.3-7.7) k/uL Lymphocytes # 1.0 (1.0-4.8) k/uL Monocytes # 0.5 (0-1.0) k/uL Eosinophils # 0.5 (0-0.7) k/uL Basophils # 0.1 (0-0.2) k/uL Hypochromasia Moderate Anisocytosis Slight PT 12.6 H (9.0-12.0) sec INR 1.2 H (<1.2) APTT 25.1 (22.0-30.0) sec Sodium 132 L (137-145) mmol/L Potassium 4.4 (3.5-5.1) mmol/L Chloride 101 (98-107) mmol/L Carbon Dioxide 24 (22-30) mmol/L Anion Gap 7 mmol/L BUN 22 H (9-20) mg/dL Creatinine 1.65 H (0.66-1.25) mg/dL Est GFR (CKD-EPI)AfAm 55 (>60 ml/min/1.73 sqM) Est GFR (CKD-EPI)NonAf 47 (>60 ml/min/1.73 sqM) Glucose 117 H (74-99) mg/dL Calcium 8.4 (8.4-10.2) mg/dL Magnesium 1.9 (1.6-2.3) mg/dL Total Bilirubin 1.9 H (0.2-1.3) mg/dL AST 71 H (17-59) U/L ALT 22 (4-49) U/L Alkaline Phosphatase 187 H (38-126) U/L Total Protein 6.0 L (6.3-8.2) g/dL Albumin 2.9 L (3.5-5.0) g/dL Blood Type Blood Type Recheck Bld Type Recheck Status Antibody Screen Spec Expiration Date 09/12/20 Range/Units 18:48 WBC (3.8-10.6) k/uL RBC (4.30-5.90) m/uL Hgb (13.0-17.5) gm/dL Hct (39.0-53.0) % MCV (80.0-100.0) fL MCH (25.0-35.0) pg MCHC (31.0-37.0) g/dL RDW (11.5-15.5) % Plt Count (150-450) k/uL MPV Neutrophils % % Lymphocytes % % Monocytes % % Eosinophils % % Basophils % % Neutrophils # (1.3-7.7) k/uL Lymphocytes # (1.0-4.8) k/uL Monocytes # (0-1.0) k/uL Eosinophils # (0-0.7) k/uL Basophils # (0-0.2) k/uL Hypochromasia Anisocytosis PT (9.0-12.0) sec INR (<1.2) APTT (22.0-30.0) sec Sodium (137-145) mmol/L Potassium (3.5-5.1) mmol/L Chloride (98-107) mmol/L Carbon Dioxide (22-30) mmol/L Anion Gap mmol/L BUN (9-20) mg/dL Creatinine (0.66-1.25) mg/dL Est GFR (CKD-EPI)AfAm (>60 ml/min/1.73 sqM) Est GFR (CKD-EPI)NonAf (>60 ml/min/1.73 sqM) Glucose (74-99) mg/dL Calcium (8.4-10.2) mg/dL Magnesium (1.6-2.3) mg/dL Total Bilirubin (0.2-1.3) mg/dL AST (17-59) U/L ALT (4-49) U/L Alkaline Phosphatase (38-126) U/L Total Protein (6.3-8.2) g/dL Albumin (3.5-5.0) g/dL Blood Type O Positive Blood Type Recheck O Pos Bld Type Recheck Status No Antibody Screen NEGATIVE Spec Expiration Date 09/15/20202347 Disposition Clinical Impression: Anemia Disposition: HOME SELF-CARE Condition: Good Instructions (If sedation given, give patient instructions): Anemia (ED) Is patient prescribed a controlled substance at d/c from ED?: No Referrals: Lavelle Knox MD [Primary Care Provider] - 1-2 days
[2020-09-12 22:22] VITALS: BP 141/88; PULSE 80; RESP 18; TEMP 97.9
== END 2020-09-12 23:00 | disposition home or self-care (01) ==
LOC: EC 17:46
DX: D64.9 Anemia, unspecified (principal); F17.200 Nicotine dependence, unspecified, uncomplicated; Z90.49 Acquired absence of other specified parts of digestive tract
CPT/HCPCS: 36415; 86900; 86901; 80053; 83735; 85025; 85610; 85730; 86850; 86920; 99284; P9016

== ENCOUNTER 2020-09-18 12:15 | Day surgery (SDC) | payer OTHER ==
[2020-09-18 12:36] VITALS: BP 154/90; PULSE 88; RESP 16; TEMP 98.2
[2020-09-18 13:21] LABS: Anisocytosis Slight; Basophils # (A) 0.1 k/uL (0-0.2); Basophils % (A) 1 %; Eosinophils # (A) 0.5 k/uL (0-0.7); Eosinophils % (A) 10 %; HCT 20.9 % (39.0-53.0); Hypochromasia Marked; Lymphocytes % (A) 18 %; MCH 28.7 pg (25.0-35.0); MCHC 31.2 g/dL (31.0-37.0); MCV 91.9 fL (80.0-100.0); Mean Platelet Volume 9.6; Monocytes # (A) 0.5 k/uL (0-1.0); Monocytes % (A) 10 %; Neutrophils # (A) 3.2 k/uL (1.3-7.7); Neutrophils % (A) 59 %; Platelet Count 108 k/uL (150-450); RBC 2.28 m/uL (4.30-5.90); WBC 5.4 k/uL (3.8-10.6)
[2020-09-18 13:29] LABS: HGB 6.5 gm/dL (13.0-17.5)
[2020-09-18 13:30] LABS: INR 1.2 (<1.2); Prothrombin Time 12.1 sec (9.0-12.0)
[2020-09-18 13:37] LABS: Albumin 2.8 g/dL (3.5-5.0); Calcium 8.1 mg/dL (8.4-10.2); Potassium 4.2 mmol/L (3.5-5.1); Total Bilirubin 1.9 mg/dL (0.2-1.3); Total Protein 5.9 g/dL (6.3-8.2)
--- NOTE | 2020-09-18 13:57 | US ---
Ultrasound-guided paracentesis. DATE OF EXAM: 09/18/2020 CLINICAL HISTORY: Ascites The patient presented with abnormal blood work and the procedure could not be performed. Case discuss ed with referring clinician who wished that the procedure be deferred. IMPRESSION: Deferred paracentesis.
[2020-09-18] MEDS: ALBUMIN HUMAN 25% 50 ML in EMPTY BAG 1 BAG IVPB SCH ×2 (14:23→14:24)
== END 2020-09-18 14:00 | disposition home or self-care (01) ==
LOC: RADPROMAIN 12:15
PROVIDERS: ATTEND Internal Medicine Gastroenterology
DX: R18.8 Other ascites (principal)
CPT/HCPCS: 36415; 76705; 80053; 85025; 85610

== ENCOUNTER 2020-09-18 14:01 | Observation (INO) | payer OTHER ==
[2020-09-18 15:36] LABS: Anisocytosis Slight; Basophils # (A) 0.1 k/uL (0-0.2); Basophils % (A) 1 %; Eosinophils # (A) 0.7 k/uL (0-0.7); Eosinophils % (A) 10 %; HCT 20.6 % (39.0-53.0); Hypochromasia Marked; Lymphocytes # (A) 1.4 k/uL (1.0-4.8); Lymphocytes % (A) 21 %; MCH 29.2 pg (25.0-35.0); MCHC 31.9 g/dL (31.0-37.0); MCV 91.5 fL (80.0-100.0); Monocytes # (A) 0.6 k/uL (0-1.0); Monocytes % (A) 9 %; Neutrophils % (A) 58 %; Platelet Count 128 k/uL (150-450); Poikilocytosis Slight; RBC 2.25 m/uL (4.30-5.90); RDW 17.6 % (11.5-15.5); WBC 6.9 k/uL (3.8-10.6)
[2020-09-18 15:45] LABS: Calcium 8.2 mg/dL (8.4-10.2); Potassium 4.2 mmol/L (3.5-5.1)
--- NOTE | 2020-09-18 15:47 | ED ---
General Adult HPI - General Chief complaint: Recheck/Abnormal Lab/Rx Stated complaint: Blood transfusion Time Seen by Provider: 09/18/20 15:17 Source: patient Mode of arrival: ambulatory Limitations: no limitations - History of Present Illness Initial comments: Dictation was produced using [employer] dictation software. please excuse any grammatical, word or spelling errors. Chief Complaint: 50-year-old male presents emergency Department with anemia. History of Present Illness: 50-year-old male presents to the emergency department for hemoglobin of 6.5. Patient has a history of liver cirrhosis and abdominal ascites. He gets paracentesis once every week. Patient was seen in the emergency department for the same complaint. He had anemia appears given transfusion of blood however did not want to be admitted. He was discharged tried to go to his paracentesis appointment however the day refused to 4 paracentesis on him due to his low hemoglobin. Patient denies any GI bleed. Denies any abdominal pain. Denies any fever, chills or night sweats. The ROS documented in this emergency department record has been reviewed and confirmed by me. Those systems with pertinent positive or negative responses have been documented in the HPI. All other systems are other negative and/or noncontributory. PHYSICAL EXAM: General Impression: Alert and oriented x3, not in acute distress HEENT: Normocephalic atraumatic, extra-ocular movements intact, pupils equal and reactive to light bilaterally, mucous membranes moist. Cardiovascular: Heart regular rate and rhythm Chest: Able to complete full sentences, no retractions, no tachypnea Abdomen: abdomen soft, non-tender, positive fluid wave, no organomegaly Musculoskeletal: Pulses present and equal in all extremities, no peripheral edema Motor: no focal deficits noted Neurological: CN II-XII grossly intact, no focal motor or sensory deficits noted Skin: Intact with no visualized rashes Psych: Normal affect and mood Rectal exam: Digital rectal exam shows no gross blood, no obvious source of bleeding ED course: 50 y old male presents emergency department for hemoglobin of 6.5. Patient's history of there were cirrhosis. Continues to consume alcohol. Interventional radiology did not want to do a paracentesis with his current hemoglobin level. Vital signs upon arrival are within acceptable limits. Physical examination is benign. EKG interpretation: Ventricular rate 88, normal sinus rhythm,. 150, Q 70, QTC 474. No [place] prolongation, no QTC prolongation. Laboratory evaluation obtained. Hemoglobin 6.6, rest of CBC is within acceptable limits. Coag panel is negative. Metabolic panel within acceptable limits. Hilario blood is positive. Patient wear for 1 unit blood transfusion. Given that patient has decreasing hemoglobin that was suspected given a transfusion recently I believe patient would benefit from inpatient admission with GI consult. Case discussed with Dr. Deng who is willing to accept patients care. Patient will be admitted to observation. Patient given Protonix. - Related Data Home Medications Medication Instructions Recorded Confirmed Furosemide [Lasix] 40 mg PO BID 03/29/20 09/18/20 Spironolactone 50 mg PO DAILY 03/29/20 09/18/20 Acetaminophen [Tylenol Extra 1,000 mg PO Q6HR PRN 06/18/20 09/18/20 Strength] Spironolactone [Aldactone] 25 mg PO HS 09/18/20 09/18/20 Allergies Allergy/AdvReac Type Severity Reaction Status Date / Time No Known Allergies Allergy Verified 09/18/20 16:07 Review of Systems ROS Statement: Those systems with pertinent positive or pertinent negative responses have been documented in the HPI. ROS Other: All systems not noted in ROS Statement are negative. Past Medical History Past Medical History: Liver Disease Additional Past Medical History / Comment(s): pancreatitis; etoh, cirrhosis, ascites, thrombocytopenia, anemia History of Any Multi-Drug Resistant Organisms: None Reported Past Surgical History: Cholecystectomy Additional Past Surgical History / Comment(s): multiple large volume paracentesis procedures Past Anesthesia/Blood Transfusion Reactions: No Reported Reaction Past Psychological History: No Psychological Hx Reported Smoking Status: Current every day smoker Past Alcohol Use History: Occasional Past Drug Use History: None Reported - Past Family History Father Additional Family Medical History / Comment(s): back surgery Mother Additional Family Medical History / Comment(s): stomach issues on intestines with frequent blood transfusions General Exam Limitations: no limitations Course Vital Signs 09/18/20 14:14 Temperature 97.8 F Pulse Rate 87 Respiratory 20 Rate Blood Pressure 145/81 O2 Sat by Pulse 100 Oximetry Medical Decision Making - Lab Data Result diagrams: 09/18/20 15:27 09/18/20 15:27 Lab Results 09/18/20 09/18/20 09/18/20 Range/Units 15:27 15:27 15:27 WBC 6.9 (3.8-10.6) k/uL RBC 2.25 L (4.30-5.90) m/uL Hgb 6.6 L* (13.0-17.5) gm/dL Hct 20.6 L (39.0-53.0) % MCV 91.5 (80.0-100.0) fL MCH 29.2 (25.0-35.0) pg MCHC 31.9 (31.0-37.0) g/dL RDW 17.6 H (11.5-15.5) % Plt Count 128 L (150-450) k/uL MPV 9.0 Neutrophils % 58 % Lymphocytes % 21 % Monocytes % 9 % Eosinophils % 10 % Basophils % 1 % Neutrophils # 4.0 (1.3-7.7) k/uL Lymphocytes # 1.4 (1.0-4.8) k/uL Monocytes # 0.6 (0-1.0) k/uL Eosinophils # 0.7 (0-0.7) k/uL Basophils # 0.1 (0-0.2) k/uL Hypochromasia Marked Poikilocytosis Slight Anisocytosis Slight PT 12.1 H (9.0-12.0) sec INR 1.2 H (<1.2) APTT 26.1 (22.0-30.0) sec Sodium 133 L (137-145) mmol/L Potassium 4.2 (3.5-5.1) mmol/L Chloride 102 (98-107) mmol/L Carbon Dioxide 22 (22-30) mmol/L Anion Gap 9 mmol/L BUN 19 (9-20) mg/dL Creatinine 1.27 H (0.66-1.25) mg/dL Est GFR (CKD-EPI)AfAm 75 (>60 ml/min/1.73 sqM) Est GFR (CKD-EPI)NonAf 65 (>60 ml/min/1.73 sqM) Glucose 112 H (74-99) mg/dL Calcium 8.2 L (8.4-10.2) mg/dL Stool Occult Blood (Negative) Blood Type Blood Type Recheck Bld Type Recheck Status Crossmatch Spec Expiration Date 09/18/20 09/18/20 Range/Units 15:27 15:28 WBC (3.8-10.6) k/uL RBC (4.30-5.90) m/uL Hgb (13.0-17.5) gm/dL Hct (39.0-53.0) % MCV (80.0-100.0) fL MCH (25.0-35.0) pg MCHC (31.0-37.0) g/dL RDW (11.5-15.5) % Plt Count (150-450) k/uL MPV Neutrophils % % Lymphocytes % % Monocytes % % Eosinophils % % Basophils % % Neutrophils # (1.3-7.7) k/uL Lymphocytes # (1.0-4.8) k/uL Monocytes # (0-1.0) k/uL Eosinophils # (0-0.7) k/uL Basophils # (0-0.2) k/uL Hypochromasia Poikilocytosis Anisocytosis PT (9.0-12.0) sec INR (<1.2) APTT (22.0-30.0) sec Sodium (137-145) mmol/L Potassium (3.5-5.1) mmol/L Chloride (98-107) mmol/L Carbon Dioxide (22-30) mmol/L Anion Gap mmol/L BUN (9-20) mg/dL Creatinine (0.66-1.25) mg/dL Est GFR (CKD-EPI)AfAm (>60 ml/min/1.73 sqM) Est GFR (CKD-EPI)NonAf (>60 ml/min/1.73 sqM) Glucose (74-99) mg/dL Calcium (8.4-10.2) mg/dL Stool Occult Blood Positive (Negative) Blood Type O Positive Blood Type Recheck O Pos Bld Type Recheck Status No Crossmatch See Detail Spec Expiration Date 09/21/20202326 Disposition Clinical Impression: Anemia, GI bleed Disposition: ADMITTED IP TO THIS [facility] Condition: Fair Referrals: Lavelle Knox MD [Primary Care Provider] - 1-2 days
[2020-09-18 15:56] LABS: HGB 6.6 gm/dL (13.0-17.5)
[2020-09-18 16:03] LABS: INR 1.2 (<1.2); Partial Thromboplastin Time 26.1 sec (22.0-30.0); Prothrombin Time 12.1 sec (9.0-12.0)
[2020-09-18] MEDS ORDERED: ONDANSETRON 4 MG/2 ML VIAL IVP PRN (16:15)
[2020-09-18] MEDS ORDERED: NALOXONE 0.4 MG/ML 1 ML VIAL IV PRN (16:15)
[2020-09-18] MEDS ORDERED: SODIUM CHLORIDE 0.9% 1,000 ML IV SCH (16:15)
--- NOTE | 2020-09-18 16:35 | P.HPIM ---
History of Present Illness Patient is a 50-year-old male came to the emergency department with the low hemoglobin of 6.5.. Patient denied any lightheadedness. Patient does have cirrhosis and does have significant ascites patient is a posterior paracentesis once a week although patient didn't indicate this presents his as his hemoglobin was extremely low. Patient received multiple blood transfusions in ER in the past without any significant improvement in his hemoglobin because of which patient is being admitted with concerns for subacute bleeding and low hemoglobin. Patient is being transfused 1 unit of PRBC patient denied any blood in the stools dark stools. We'll order paracentesis for tomorrow which she is going to be other diagnostic paracentesis. Patient's baseline creatinine is around 1.2 in the recent past and present creatinine is around that and patient resting is within normal limits for the low sodium of 133 patient is on Lasix a nd Aldactone because of cirrhosis. REVIEW OF SYSTEMS: CONSTITUTIONAL: No fever, no malaise, no fatigue. HEENT: No recent visual problems or hearing problems. Denied any sore throat. CARDIOVASCULAR: No chest pain, orthopnea, PND, no palpitations, no syncope. PULMONARY: No shortness of breath, no cough, no hemoptysis. GASTROINTESTINAL: No diarrhea, no nausea, no vomiting, no abdominal pain. NEUROLOGICAL: No headaches, no weakness, no numbness. HEMATOLOGICAL: Denies any bleeding or petechiae. GENITOURINARY: Denies any burning micturition, frequency, or urgency. MUSCULOSKELETAL/RHEUMATOLOGICAL: Denies any joint pain, swelling, or any muscle pain. ENDOCRINE: Denies any polyuria or polydipsia. The rest of the 14-point review of systems is negative. PHYSICAL EXAMINATION: GENERAL: The patient is alert and oriented x3, not in any acute distress. Obese HEENT: Pupils are round and equally reacting to light. EOMI. No scleral icterus. As have conjunctival pallor. Normocephalic, atraumatic. No pharyngeal erythema. No thyromegaly. CARDIOVASCULAR: S1 and S2 present. No murmurs, rubs, or gallops. PULMONARY: Chest is clear to auscultation, no wheezing or crackles. ABDOMEN: Significantly distended abdomen with shifting dullness and fluid fluid thrill MUSCULOSKELETAL: No joint swelling or deformity. EXTREMITIES: No cyanosis, clubbing, or pedal edema. NEUROLOGICAL: Gross neurological examination did not reveal any focal deficits. SKIN: No rashes. Assessment and plan -Anemia without any evidence of acute blood loss or GI bleed at this time. Anemia is probably multifactorial secondary to bone marrow suppression from chronic alcoholism as well as iron deficiency will obtain iron panel and B12 levels and folate levels. His hemoglobin is 6.5 mg transfused 1 unit of PRBC -Alcoholic cirrhosis with significant ascites continue with diuretics ultrasound dated the therapeutic paracentesis will be ordered -Chronic kidney disease stage II to 3 etiology is probably secondary to cirrhosis -Hyponatremia hypovolemic hyponatremia from cirrhosis DVT prophylaxis: Early ambulation Past Medical History Past Medical History: Liver Disease Additional Past Medical History / Comment(s): pancreatitis; etoh, cirrhosis, ascites, thrombocytopenia, anemia History of Any Multi-Drug Resistant Organisms: None Reported Past Surgical History: Cholecystectomy Additional Past Surgical History / Comment(s): multiple large volume paracentes is procedures Past Anesthesia/Blood Transfusion Reactions: No Reported Reaction Past Psychological History: No Psychological Hx Reported Smoking Status: Current every day smoker Past Alcohol Use History: Occasional Past Drug Use History: None Reported - Past Family History Father Additional Family Medical History / Comment(s): back surgery Mother Additional Family Medical History / Comment(s): stomach issues on intestines with frequent blood transfusions Medications and Allergies Home Medications Medication Instructions Recorded Confirmed Type Furosemide [Lasix] 40 mg PO BID 03/29/20 09/18/20 History Spironolactone 50 mg PO DAILY 03/29/20 09/18/20 History Acetaminophen [Tylenol Extra 1,000 mg PO Q6HR PRN 06/18/20 09/18/20 History Strength] Spironolactone [Aldactone] 25 mg PO HS 09/18/20 09/18/20 History Allergies Allergy/AdvReac Type Severity Reaction Status Date / Time No Known Allergies Allergy Verified 09/18/20 16:07 Physical Exam Vitals: Vital Signs Temp Pulse Resp BP Pulse Ox 09/18/20 16:30 16 135/88 100 09/18/20 16:00 16 152/87 100 09/18/20 15:30 16 162/88 100 09/18/20 15:18 16 99 09/18/20 14:14 97.8 F 87 20 145/81 100 Intake and Output 08/04/21 08/04/21 08/04/21 06:59 14:59 22:59 Other: Weight 99.79 kg Results CBC & Chem 7: 09/18/20 15:27 09/18/20 15:27 Labs: Abnormal Lab Results - Last 24 Hours (Table) 09/18/20 09/18/20 09/18/20 Range/Units 15:27 15:27 15:27 RBC 2.25 L (4.30-5.90) m/uL Hgb 6.6 L* (13.0-17.5) gm/dL Hct 20.6 L (39.0-53.0) % RDW 17.6 H (11.5-15.5) % Plt Count 128 L (150-450) k/uL PT 12.1 H (9.0-12.0) sec INR 1.2 H (<1.2) Sodium 133 L (137-145) mmol/L Creatinine 1.27 H (0.66-1.25) mg/dL Glucose 112 H (74-99) mg/dL Calcium 8.2 L (8.4-10.2) mg/dL Crossmatch 09/18/20 Range/Units 15:27 RBC (4.30-5.90) m/uL Hgb (13.0-17.5) gm/dL Hct (39.0-53.0) % RDW (11.5-15.5) % Plt Count (150-450) k/uL PT (9.0-12.0) sec INR (<1.2) Sodium (137-145) mmol/L Creatinine (0.66-1.25) mg/dL Glucose (74-99) mg/dL Calcium (8.4-10.2) mg/dL Crossmatch See Detail
[2020-09-18] MEDS: PANTOPRAZOLE 40 MG/10 ML VIAL IV SCH (17:35)
[2020-09-18] MEDS: FUROSEMIDE 40 MG TAB PO SCH (17:36)
[2020-09-18] MEDS: MELATONIN 5 MG TABLET PO SCH (22:49)
[2020-09-19 02:20] LABS: % Iron Saturation 10.31 (15.00-50.00)
[2020-09-19 02:39] LABS: Folate, Serum 14.9 ng/mL
[2020-09-19] MEDS: PANTOPRAZOLE 40 MG/10 ML VIAL IV SCH (08:46)
[2020-09-19 09:37] LABS: HCT 19.8 % (39.6-50.0); HGB 6.1 g/dL (13.0-17.0); MCH 27.6 pg (27.0-32.0); MCHC 30.8 g/dL (32.0-37.0); MCV 89.6 fL (80.0-97.0); Mean Platelet Volume 10.6 fL (9.5-12.2); Platelet Count 92 X 10*3/uL (140-440); RBC 2.21 X 10*6/uL (4.40-5.60); RDW 17.9 % (11.5-14.5); WBC 6.34 X 10*3/uL (4.50-10.00)
[2020-09-19 10:36] LABS: African American GFR (CKD) 80.7 (60.0-200.0); Anion Gap 6.5 mmol/L (4.00-12.00); BUN/Creat Ratio 15.83 Ratio (12.00-20.00); Calcium 7.8 mg/dL (8.7-10.3); Carbon Dioxide 25.5 mmol/L (21.6-31.8); Non-African American GFR(CKD) 69.6 (60.0-200.0); Potassium 4.1 mmol/L (3.5-5.5)
[2020-09-19] MEDS: ALBUMIN HUMAN 25% 50 ML in EMPTY BAG 1 BAG IVPB SCH ×4 (11:40→12:40)
[2020-09-19] MEDS: FUROSEMIDE 40 MG TAB PO SCH ×2 (11:56→15:45)
[2020-09-19] MEDS: SPIRONOLACTONE 25 MG TAB PO SCH (11:57)
--- NOTE | 2020-09-19 12:25 | US ---
Ultrasound-guided paracentesis. DATE OF EXAM: 09/19/2020 CLINICAL HISTORY: Ascites The procedure was discussed with the patient. The risks, complications, benefits, and alternatives we re discussed and any questions were answered. Informed consent was obtained. The patient was placed s upine on the ultrasound table and prepped and draped in the usual sterile fashion. All elements of maximal barrier technique were utilized. Under ultrasound guidance, access into the right lower quadrant was obtained, via the paracentesis catheter system and direct ultrasound guidanc e. Approximately 11.5 liters of straw-colored fluid was removed. The patient was stable throughout the p rocedure and remained stable upon discharge from Department of Radiology. IMPRESSION: Successful paracentesis under ultrasound guidance.
--- NOTE | 2020-09-19 15:27 | P.PN ---
Subjective Progress Note Date: 09/19/20 Patient is a 50-year-old male came to the emergency department with the low hemoglobin of 6.5.. Patient denied any lightheadedness. Patient does have cirrhosis and does have significant ascites patient is a posterior paracentesis once a week although patient didn't indicate this presents his as his hemoglobin was extremely low. Patient received multiple blood transfusions in ER in the past without any significant improvement in his hemoglobin because of which patient is being admitted with concerns for subacute bleeding and low hemoglobin. Patient is being transfused 1 unit of PRBC patient denied any blood in the stools dark stools. We'll order paracentesis for tomorrow which she is going to be other diagnostic paracentesis. Patient's baseline creatinine is around 1.2 in the recent past and present creatinine is around that and patient resting is within normal limits for the low sodium of 133 patient is on Lasix and Aldactone because of cirrhosis. 09/19/2020 Patient is evaluated at the bedside after having a paracentesis done this morning. Patient had about 11 L of fluid off him today. Patient received IV albumin, on status post paracentesis. Patient states that he has a standing order with the radiology department to have a paracentesis done every week. Patient states that his last paracentesis was 2 weeks ago to get around 7 L of fluid off. Patient states that when he came last week to get his paracentesis, they noted that his hemoglobin was low and he received 1 unit of packed red blood cells on . Patient was then admitted to ER for rule out bleed on September 18. Patient has received 1 unit of PRBCs for hemoglobin of 6.5. Repeat hemoglobin of 6.1. Patient has been ordered to have 1 more unit of PRBCs, with a repeat hemoglobin check in the morning. Consult to hematology services for a persistent low hemoglobin. Patient has remained afebrile, vital signs are stable with a blood pressure of 115/74. Patient denies abdominal pain, denies chest pain, denies shortness of breath, denies cough. Patient's platelet count is 92, continue to monitor will recheck in the morning. Patient's sodium this morning is 134, we'll continue with conservative monitoring. Patient continues on Aldactone and Lasix for a history of hepatic cirrhosis. ROS: Constitutional: Denied any fatigue denied any fever. Cardio vascular: denied any chest pain, palpitations Gastrointestinal denied any nausea vomiting Pulmonary: Denied any shortness of breath cough Neurologic denied any new focal deficits All inpatient medications were reviewed and appropriate changes in these medications as dictated in the interval history and assessment and plan. PHYSICAL EXAMINATION: GENERAL: The patient is alert and oriented x3, not in any acute distress. Well developed, well nourished. HEENT: Pupils are round and equally reacting to light. EOMI. No scleral icterus. No conjunctival pallor. Normocephalic, atraumatic. No pharyngeal erythema. No thyromegaly. CARDIOVASCULAR: S1 and S2 present. No murmurs, rubs, or gallops. PULMONARY: Chest is clear to auscultation, no wheezing or crackles. ABDOMEN: Soft, nontender, nondistended, normoactive bowel sounds. MUSCULOSKELETAL: No joint swelling or deformity. EXTREMITIES: No cyanosis, clubbing, or pedal edema. NEUROLOGICAL: Gross neurological examination did not reveal any focal deficits. SKIN: No rashes. Assessment and plan -Anemia without any evidence of acute blood loss or GI bleed at this time. Anemia is probably multifactorial secondary to bone marrow suppression from chronic alcoholism as well as iron deficiency will obtain iron panel and B12 levels and folate levels. His hemoglobin is 6.1, will transfuse a second unit of PRBC, recheck hemoglobin in the morning, hematology consultation. -Alcoholic cirrhosis with significant ascites continue with diuretics, patient had a therapeutic paracentesis today was 11.5 L off. -Chronic kidney disease stage II to 3 etiology is probably secondary to cirrhosis, monitor labs in the morning. -Hyponatremia hypovolemic hyponatremia from cirrhosis, monitor sodium repeat in the morning. DVT prophylaxis: Early ambulation, hold off on medication related to low hemoglobin and platelet count, history of thrombocytopenia, appreciate h ematology input. Monitor in the morning. Objective - Vital Signs Vital signs: Vital Signs Temp 98.2 F 09/19/20 14:34 Pulse 83 09/19/20 14:34 Resp 16 09/19/20 14:34 BP 115/74 09/19/20 14:34 Pulse Ox 98 09/19/20 14:00 Intake & Output 09/18/20 09/19/20 09/19/20 18:59 06:59 18:59 Intake Total 310 540 Balance 310 540 Weight 99.79 kg Intake: Oral 540 Blood Product 310 0 Rc As-1 Unit 310 [id number] Rc Pheresis 2 As3 Unit 0 [id number] Other: Voiding Method Toilet # Voids 2 2 # Bowel Movements 1 - Labs CBC & Chem 7: 09/19/20 06:26 09/19/20 06:26 Labs: Abnormal Lab Results - Last 24 Hours (Table) 09/18/20 09/18/20 09/18/20 Range/Units 15:27 15:27 15:27 RBC 2.25 L (4.30-5.90) m/uL Hgb 6.6 L* (13.0-17.5) gm/dL Hct 20.6 L (39.0-53.0) % MCHC (32.0-37.0) g/dL RDW 17.6 H (11.5-15.5) % Plt Count 128 L (150-450) k/uL PT 12.1 H (9.0-12.0) sec INR 1.2 H (<1.2) Sodium 133 L (137-145) mmol/L Creatinine 1.27 H (0.66-1.25) mg/dL Glucose 112 H (74-99) mg/dL Calcium 8.2 L (8.4-10.2) mg/dL Iron (65-175) ug/dL % Saturation (15.00-50.00) Vitamin B12 (200.0-944.0) pg/mL Crossmatch 09/18/20 09/18/20 09/18/20 Range/Units 15:27 15:27 15:27 RBC (4.30-5.90) m/uL Hgb (13.0-17.5) gm/dL Hct (39.0-53.0) % MCHC (32.0-37.0) g/dL RDW (11.5-15.5) % Plt Count (150-450) k/uL PT (9.0-12.0) sec INR (<1.2) Sodium (137-145) mmol/L Creatinine (0.66-1.25) mg/dL Glucose (74-99) mg/dL Calcium (8.4-10.2) mg/dL Iron 40 L (65-175) ug/dL % Saturation 10.31 L (15.00-50.00) Vitamin B12 2509.0 H (200.0-944.0) pg/mL Crossmatch See Detail 09/19/20 09/19/20 Range/Units 06:26 06:26 RBC 2.21 L (4.30-5.90) m/uL Hgb 6.1 L* (13.0-17.5) gm/dL Hct 19.8 L* (39.0-53.0) % MCHC 30.8 L (32.0-37.0) g/dL RDW 17.9 H (11.5-15.5) % Plt Count 92 L (150-450) k/uL PT (9.0-12.0) sec INR (<1.2) Sodium 134 L (137-145) mmol/L Creatinine (0.66-1.25) mg/dL Glucose (74-99) mg/dL Calcium 7.8 L (8.4-10.2) mg/dL Iron (65-175) ug/dL % Saturation (15.00-50.00) Vitamin B12 (200.0-944.0) pg/mL Crossmatch Assessment and Plan Time with Patient: Greater than 30
[2020-09-19] MEDS: MELATONIN 5 MG TABLET PO SCH (21:16)
--- NOTE | 2020-09-19 22:50 | P.CONS ---
History of Present Illness - Reason for Consult Consult date: 09/19/20 bicytopenia Requesting physician: Marli Deng - Chief Complaint anemia - History of Present Illness Mr. Culver is a very pleasant man we have been asked to see re:bicytopenia. Pt is a chronic ETOH user for most of his adult life, he has liver cirrhosis 2/2 the same. He has been told his platelet were low before, the anemia is new to his knowledge but, he notes he has been requiring blood transfusions more recently. He has chronic ascites and requires large volume paracentesis rather frequently. He had EGD and colon with Dr. Carvajal last mo and reports no varices. He denies personal Hx of caner, parent had cancer but he does not know what kind. He deneis recent illness, bleeding, hematemesis, hemoptysis, hematochesia or melena, he bruises easily. Review of Systems 10 point ROS is neg except as stated in HPI Past Medical History Past Medical History: Liver Disease Additional Past Medical History / Comment(s): pancreatitis; etoh, cirrhosis, ascites, thrombocytopenia, anemia History of Any Multi-Drug Resistant Organisms: None Reported Past Surgical History: Cholecystectomy Additional Past Surgical History / Comment(s): multiple large volume paracentesis procedures Past Anesthesia/Blood Transfusion Reactions: No Reported Reaction Past Psychological History: No Psychological Hx Reported Smoking Status: Never smoker Past Alcohol Use History: Daily Additional Past Alcohol Use History / Comment(s): 2-3 shots of fireball Past Drug Use History: None Reported - Past Family History Father Family Medical History: Cancer (unknown type) Additional Family Medical History / Comment(s): back surgery Mother Family Medical History: Cancer (unknown type), GI Bleed Additional Family Medical History / Comment(s): stomach issues on intestines with frequent blood transfusions Medications and Allergies Home Medications Medication Instructions Recorded Confirmed Type Furosemide [Lasix] 40 mg PO BID 03/29/20 09/18/20 History Spironolactone 50 mg PO DAILY 03/29/20 09/18/20 History Acetaminophen [Tylenol Extra 1,000 mg PO Q6HR PRN 06/18/20 09/18/20 History Strength] Melatonin 10 mg PO HS 09/18/20 09/18/20 History Spironolactone [Aldactone] 25 mg PO HS 09/18/20 09/18/20 History Allergies Allergy/AdvReac Type Severity Reaction Status Date / Time No Known Allergies Allergy Verified 09/18/20 16:07 Physical Exam Vitals: Vital Signs Temp Pulse Pulse Resp BP BP Pulse Ox 09/19/20 19:25 97.6 F 91 16 114/69 100 09/19/20 15:10 97.8 F 87 16 127/73 09/19/20 14:34 98.2 F 83 16 115/74 09/19/20 14:04 98.2 F 83 16 115/66 09/19/20 14:00 97.4 F L 81 16 120/64 98 09/19/20 13:54 97.8 F 80 16 125/73 09/19/20 12:46 116/69 09/19/20 12:31 119/69 09/19/20 12:16 117/72 09/19/20 12:01 120/87 09/19/20 11:46 119/72 09/19/20 11:25 80 16 134/81 99 09/19/20 10:57 79 16 136/84 100 09/19/20 10:31 80 16 153/83 100 09/19/20 10:08 79 16 134/80 99 09/19/20 08:00 98.0 F 85 19 106/67 97 09/19/20 03:58 98.1 F 90 116/67 98 09/19/20 03:57 98.1 F 90 116/67 98 09/19/20 02:00 98.2 F 95 17 110/73 95 09/19/20 01:55 98.0 F 99 130/81 98 09/19/20 01:24 98.2 F 97 110/62 96 09/19/20 00:54 98.4 F 92 109/68 96 09/19/20 00:44 98.4 F 90 117/73 97 Intake and Output 09/19/20 09/19/20 09/19/20 06:59 14:59 22:59 Intake Total 310 0 873 Balance 310 0 873 Intake: Intake, IV Titration 50 Amount Albumin Human 25% 50 ml 50 In Empty Bag 1 bag @ 200 mls/hr IVPB Q15M [facility] Rx#: [id number] Oral 540 Blood Product 310 0 283 Rc As-1 Unit 310 [id number] Rc Pheresis 2 As3 Unit 0 283 [id number] Other: # Voids 2 3 2 # Bowel Movements 1 - Constitutional looks older then age General appearance: average body habitus, cooperative, no acute distress - EENT Eyes: anicteric sclerae, EOMI ENT: hearing grossly normal, normal oropharynx - Neck Neck: no lymphadenopathy - Respiratory Respiratory: bilateral: CTA - Cardiovascular Rhythm: regular Heart sounds: normal: S1, S2 Abnormal Heart Sounds: no systolic murmur, no diastolic murmur, no rub, no S3 Gallop, no S4 Gallop, no click, no other leg Peripheral Edema: bilateral: Trace - Gastrointestinal difficult to assess spleen and liver 2/2 distension, LUQ dullness percussed just under costal margin General gastrointestinal: no absent bowel sounds, no decreased bowel sounds, distended, no hepatomegaly, no hyperactive bowel sounds, normal bowel sounds, no organomegaly, no rigid, no scaphoid, no soft, no tenderness, no umbilical hernia, no ventral hernia - Neurologic Neurologic: CNII-XII intact - Musculoskeletal Musculoskeletal: strength equal bilaterally - Psychiatric Psychiatric: A&O x's 3, appropriate affect, intact judgment & insight Results CBC & Chem 7: 09/19/20 06:26 09/19/20 06:26 Labs: Abnormal Lab Results - Last 24 Hours (Table) 09/18/20 09/18/20 09/18/20 Range/Units 15:27 15:27 15:27 RBC (4.40-5.60) X 10*6/uL Hgb (13.0-17.0) g/dL Hct (39.6-50.0) % MCHC (32.0-37.0) g/dL RDW (11.5-14.5) % Plt Count (140-440) X 10*3/uL Sodium (135-145) mmol/L Calcium (8.7-10.3) mg/dL Iron 40 L (65-175) ug/dL % Saturation 10.31 L (15.00-50.00) Vitamin B12 2509.0 H (200.0-944.0) pg/mL Crossmatch See Detail 09/19/20 09/19/20 Range/Units 06:26 06:26 RBC 2.21 L (4.40-5.60) X 10*6/uL Hgb 6.1 L* (13.0-17.0) g/dL Hct 19.8 L* (39.6-50.0) % MCHC 30.8 L (32.0-37.0) g/dL RDW 17.9 H (11.5-14.5) % Plt Count 92 L (140-440) X 10*3/uL Sodium 134 L (135-145) mmol/L Calcium 7.8 L (8.7-10.3) mg/dL Iron (65-175) ug/dL % Saturation (15.00-50.00) Vitamin B12 (200.0-944.0) pg/mL Crossmatch Assessment and Plan (1) Bicytopenia Narrative/Plan: Transfuse to keep Hgb 7 or greater unless symptomatic. He did not appear to have a response to the transfusion given just after midnight last night as his Hgb this AM was less then previous. CBC in AM to see if stable. He may need GI work up again or tagged RBC scan-pt reports no bleeding Plt decreased, no need for transfusion at this time. ? splenic sequestration from liver disease. US of liver and spleen Multiple labs ordered for anemia and thrombocytopenia Current Visit: Yes Status: Acute Priority: High Code(s): D75.89 - OTHER SP ECIFIED DISEASES OF BLOOD AND BLOOD-FORMING ORGANS SNOMED Code(s): 11243070 (2) EtOH dependence Narrative/Plan: Discussed with pt that chronic ETOH use can damage the bone marrow and result in low blood counts. He has been told this before about his platelets. He did not express any desire for assistance to engage in alcohol cessation Current Visit: Yes Status: Chronic Priority: High Code(s): F10.20 - ALCOHOL DEPENDENCE, UNCOMPLICATED SNOMED Code(s): 17136021 (3) Cirrhosis of liver Narrative/Plan: 2/2 ETOH. Higher risk for developing liver malignancy Current Visit: Yes Status: Chronic Priority: High Code(s): K74.60 - UNSPECIFIED CIRRHOSIS OF LIVER SNOMED Code(s): 24867890 (4) Ascites Narrative/Plan: Large volume paracentesis from cirrhosis Current Visit: Yes Status: Chronic Priority: High Code(s): R18.8 - OTHER ASCITES SNOMED Code(s): 277747152
[2020-09-20 04:34] LABS: Protein, Total 5.8 g/dL (6.2-8.2)
[2020-09-20 06:49] LABS: Anisocytosis Slight; Basophils % (A) 1 %; Eosinophils # (A) 0.4 k/uL (0-0.7); Eosinophils % (A) 9 %; HGB 7.1 gm/dL (13.0-17.5); Hypochromasia Moderate; Lymphocytes # (A) 0.9 k/uL (1.0-4.8); Lymphocytes % (A) 18 %; MCH 28.7 pg (25.0-35.0); MCHC 32.1 g/dL (31.0-37.0); MCV 89.3 fL (80.0-100.0); Mean Platelet Volume 9.3; Monocytes # (A) 0.4 k/uL (0-1.0); Monocytes % (A) 8 %; Neutrophils # (A) 3.1 k/uL (1.3-7.7); Neutrophils % (A) 62 %; Poikilocytosis Slight; RBC 2.46 m/uL (4.30-5.90); RDW 17.4 % (11.5-15.5)
[2020-09-20 06:50] LABS: Platelet Count 83 k/uL (150-450)
--- NOTE | 2020-09-20 08:36 | US ---
EXAMINATION TYPE: US abdomen complete DATE OF EXAM: 09/20/2020 COMPARISON: NONE CLINICAL HISTORY: low plt, pls comment liver, spleen size-thanks. Paracentesis patient, GB removed EXAM MEASUREMENTS: Liver Length: 17.7 cm CBD: 0.5 cm Spleen: 15.6 cm Right Kidney: 11.4 x 5.7 x 6.3 cm Left Kidney: 11.4 x 5.8 x 5.6 cm Pancreas: Obscured by bowel gas Liver: Nodular. Heterogenous. Coarse. Upper limits of normal in size. Gallbladder: Surgically absent Evidence for sonographic Flores's sign: neg CBD: wnl Spleen: Enlarged Right Kidney: No hydronephrosis or masses seen Left Kidney: No hydronephrosis or masses seen Upper IVC: Obscured by overlying bowel gas Abd Aorta: Obscured by overlying bowel gas IMPRESSION: 1. Ascites. 2. Hepatomegaly 17.7 cm and splenomegaly 15.6 cm. 3. Liver appearance is heterogenous. Some mild nodularity may be present. Some early cirrhosis could be considered.
[2020-09-20] MEDS: FUROSEMIDE 40 MG TAB PO SCH (09:05)
[2020-09-20] MEDS: SPIRONOLACTONE 25 MG TAB PO SCH (09:06)
[2020-09-20] MEDS: PANTOPRAZOLE 40 MG/10 ML VIAL IV SCH (10:04)
[2020-09-20 13:22] VITALS: BP 108/65; PULSE 61; RESP 16; TEMP 98.4
[2020-09-20 13:27] LABS: INR 1.3 (<1.2); Prothrombin Time 13.2 sec (9.0-12.0)
--- NOTE | 2020-09-20 13:48 | P.DS ---
Providers Date of admission: 09/18/20 16:15 Attending physician: Marli Deng Consults: 09/19/20 13:37 Consult Physician Routine Consulting Provider: Chino Summers Consult Reason/Comments: Pesistant low HB Do you want consulting provider notified?: Yes Primary care physician: Lavelle Knox [place] Course: Final Diagnosis -Anemia without any evidence of acute blood loss or GI bleed at this time. Anemia is probably multifactorial secondary to bone marrow suppression from chronic alcoholism as well as iron deficiency will obtain iron panel and B12 levels and folate levels. Hemoglobin 7.1, recheck CBC in 2 days. -Alcoholic cirrhosis with significant ascites continue with diuretics, patient had a therapeutic paracentesis today was 11.5 L off. Patient has a standing order for weekly paracentesis. -Chronic kidney disease stage II to 3 etiology is probably secondary to cirrhosis. -Hyponatremia hypovolemic hyponatremia from cirrhosis. Discharge disposition Patient is discharged home to self-care. Patient is to monitor for signs of bleeding. Patient will follow with hematology services. Patient will have a CBC checked in 2 days. Patient has a standing order for weekly paracentesis. Patient educated on sustaining from each week. Vital signs are stable today. Patient is alert and oriented 3, sitting up in the chair. Patient denies pain. Patient states that he is very for discharge today. Hospital course Patient is a 50-year-old male came to the emergency department with the low hemoglobin of 6.5.. Patient denied any lightheadedness. Patient does have cirrhosis and does have significant ascites patient is a posterior paracentesis once a week although patient didn't indicate this presents his as his hemoglobin was extremely low. Patient received multiple blood transfusions in ER in the past without any significant improvement in his hemoglobin because of which patient is being admitted with concerns for subacute bleeding and low hemoglobin. Patient is being transfused 1 unit of PRBC patient denied any blood in the stools dark stools. Hemoglobin after blood transfusion 6.1. One unit of PRBC, transfused, hemoglobin today is 7.1. Patient's baseline creatinine is around 1.2 in the recent past and present creatinine is around that and patient resting is within normal limits for the low sodium of 133 patient is on Lasix and Aldactone because of cirrhosis. Patient is being discharged home after a therapeutic paracentesis which patient had 11.5 L of fluid off. Patient states that this is a normal amount for him. In that he has weekly paracentesis standing order. Patient will follow-up with hematology services outpatient. Patient currently denies chest pain, cough, shortness of breath, abdominal pain. Patient states that he is interested in without difficulty. 09/20/2020 Patient is evaluated today sitting up at the bedside. Patient denies any abdominal pain, denies chest pain, cough, sugars of breath. Patient states that he is feeling well and ready for discharge. Patient denies any signs of active bleeding. No signs are stable today with a blood pressure 108/65, heart rate 61, patient is afebrile 98.4., Patient's hemoglobin today is 7.1 after 2 units of PRBCs. Patient was CBC checked in 2 days. Patient is encouraged sustaining from alcohol. Patient will follow-up with primary care provider as well. Please refer to medication reconciliation for illicit current medications. Patient Condition at Discharge: Fair Plan - Discharge Summary Discharge Rx Participant: No New Discharge Prescriptions: Continue Spironolactone 50 mg PO DAILY Furosemide [Lasix] 40 mg PO BID Acetaminophen [Tylenol Extra Strength] 1,000 mg PO Q6HR PRN PRN Reason: Pain Spironolactone [Aldactone] 25 mg PO HS Melatonin 10 mg PO HS Discharge Medication List Furosemide [Lasix] 40 mg PO BID 03/29/20 [History] Spironolactone 50 mg PO DAILY 03/29/20 [History] Acetaminophen [Tylenol Extra Strength] 1,000 mg PO Q6HR PRN 06/18/20 [History] Melatonin 10 mg PO HS 09/18/20 [History] Spironolactone [Aldactone] 25 mg PO HS 09/18/20 [History] Follow up Appointment(s)/Referral(s): Lavelle Knox MD [Primary Care Provider] - 1-2 days Chino Summers MD [STAFF PHYSICIAN] - 1 Week Ambulatory/Diagnostic Orders: Complete Blood Count w/diff [LAB.AMB] Time Frame: 2 Days, Location: None Selected Activity/Diet/Wound Care/Special Instructions: Continue to monitor for signs of bleeding Patient has a standing order for a weekly paracentesis Patient will follow-up with oncology hematology services Patient will follow-up with PCP CBC in 2 days Patient is encouraged to sustain from alcohol Discharge Disposition: HOME SELF-CARE
[2020-09-20 13:51] LABS: Albumin 3.15 g/dL (3.80-4.90)
[2020-09-20 14:26] LABS: ALT 17 U/L (4-49); AST 54 U/L (17-59); African American GFR (CKD) 81 (>60 ml/min/1.73 sqM); Albumin 2.9 g/dL (3.5-5.0); Alkaline Phosphatase 116 U/L (38-126); Anion Gap 8 mmol/L; Blood Urea Nitrogen 15 mg/dL (9-20); Calcium 8.4 mg/dL (8.4-10.2); Carbon Dioxide 25 mmol/L (22-30); Chloride 100 mmol/L (98-107); Globulin 2.8 g/dL; Glucose 133 mg/dL (74-99); Non-African American GFR(CKD) 70 (>60 ml/min/1.73 sqM); Potassium 3.8 mmol/L (3.5-5.1); Sodium 133 mmol/L (137-145); Total Bilirubin 2.2 mg/dL (0.2-1.3); Total Protein 5.7 g/dL (6.3-8.2)
--- NOTE | 2020-09-20 16:10 | P.PN ---
Subjective Progress Note Date: 09/20/20 Principal diagnosis: Pancytopenia Objective - Vital Signs Vital signs: Vital Signs Temp 98.5 F 09/20/20 08:00 Pulse 81 09/20/20 08:00 Resp 20 09/20/20 08:00 BP 103/46 09/20/20 08:00 Pulse Ox 97 09/20/20 08:00 Intake & Output 09/19/20 09/20/20 09/20/20 18:59 06:59 18:59 Intake Total 873 Balance 873 Intake: Intake, IV Titration 50 Amount Albumin Human 25% 50 ml 50 In Empty Bag 1 bag @ 200 mls/hr IVPB Q15M [facility] Rx#: [id number] Oral 540 Blood Product 283 Rc Pheresis 2 As3 Unit 283 [id number] Other: Voiding Method Toilet Toilet # Voids 2 3 # Bowel Movements 1 - Exam - Constitutional looks older then age General appearance: average body habitus, cooperative, no acute distress - EENT Eyes: anicteric sclerae, EOMI ENT: hearing grossly normal, normal oropharynx - Neck Neck: no lymphadenopathy - Respiratory Respiratory: bilateral: CTA - Cardiovascular Rhythm: regular Heart sounds: normal: S1, S2 Abnormal Heart Sounds: no systolic murmur, no diastolic murmur, no rub, no S3 Gallop, no S4 Gallop, no click, no other leg Peripheral Edema: bilateral: Trace - Gastrointestinal difficult to assess spleen and liver 2/2 distension, LUQ dullness percussed just under costal margin General gastrointestinal: no absent bowel sounds, no decreased bowel sounds, distended, no hepatomegaly, no hyperactive bowel sounds, normal bowel sounds, no organomegaly, no rigid, no scaphoid, no soft, no tenderness, no umbilical hernia, no ventral hernia - Neurologic Neurologic: CNII-XII intact - Musculoskeletal Musculoskeletal: strength equal bilaterally - Psychiatric Psychiatric: A&O x's 3, appropriate affect, intact judgment & insight - Labs CBC & Chem 7: 09/20/20 05:47 09/20/20 13:03 Labs: Abnormal Lab Results - Last 24 Hours (Table) 09/18/20 09/19/20 09/20/20 Range/Units 15:27 16:53 05:47 RBC 2.46 L (4.30-5.90) m/uL Hgb 7.1 L (13.0-17.5) gm/dL Hct 22.0 L (39.0-53.0) % RDW 17.4 H (11.5-15.5) % Plt Count 83 L (150-450) k/uL Lymphocytes # 0.9 L (1.0-4.8) k/uL Total Protein (PEP) 5.8 L (6.2-8.2) g/dL Crossmatch See Detail Assessment and Plan Plan: Assessment and Plan (1) Bicytopenia Narrative/Plan: Transfuse to keep Hgb 7 or greater unless symptomatic. He did not appear to have a response to the transfusion given just after midnight last night as his Hgb this AM was less then previous. CBC in AM to see if stable. He may need GI work up again or tagged RBC scan-pt reports no bleeding Plt decreased, no need for transfusion at this time. ? splenic sequestration from liver disease. US of liver and spleen Multiple labs ordered for anemia and thrombocytopenia Current Visit: Yes Status: Acute Priority: High Code(s): D75.89 - OTHER SPECIFIED DISEASES OF BLOOD AND BLOOD-FORMING ORGANS SNOMED Code(s): 41596220 (2) EtOH dependence Narrative/Plan: Discussed with pt that chronic ETOH use can damage the bone marrow and result in low blood counts. He has been told this before about his platelets. He did not express any desire for assistance to engage in alcohol cessation Current Visit: Yes Status: Chronic Priority: High Code(s): F10.20 - ALCOHOL DEPENDENCE, UNCOMPLICATED SNOMED Code(s): 62928345 (3) Cirrhosis of liver Narrative/Plan: 2/2 ETOH. Higher risk for developing liver malignancy Current Visit: Yes Status: Chronic Priority: High Code(s): K74.60 - UNSPECIFIED CIRRHOSIS OF LIVER SNOMED Code(s): 64282632 (4) Ascites Narrative/Plan: Large volume paracentesis from cirrhosis Current Visit: Yes Status: Chronic Priority: High Code(s): R18.8 - OTHER ASCITES SNOMED Code(s): 503819714 ETOH Cessation Transfuse hemoglbin less than 8, platelets less than 10K Discussed liver disease and bone marrow suppression in detail with patient
[2020-09-21 09:35] LABS: Methylmalonic Acid 0.12 umol/L (<0.40)
[2020-09-22 11:25] LABS: Free Kappa Lt Chain Qnt, Serum 6.48 mg/dL (0.33-1.94)
== END 2020-09-20 14:38 | disposition home or self-care (01) ==
LOC: EC 14:01 → 4SSUR 16:15
PROVIDERS: ADMIT Internal Medicine; ATTEND Internal Medicine
DX: D50.9 Iron deficiency anemia, unspecified (principal); K70.31 Alcoholic cirrhosis of liver with ascites; F10.20 Alcohol dependence, uncomplicated; D61.818 Other pancytopenia; D69.6 Thrombocytopenia, unspecified; N18.9 Chronic kidney disease, unspecified; E87.1 Hypo-osmolality and hyponatremia; E86.1 Hypovolemia; E66.9 Obesity, unspecified; F17.200 Nicotine dependence, unspecified, uncomplicated; Z79.899 Other long term (current) drug therapy; Z87.19 Personal history of other diseases of the digestive system; Z90.49 Acquired absence of other specified parts of digestive tract; Z71.41 Alcohol abuse counseling and surveillance of alcoholic
CPT/HCPCS: 49083; 99285; 96376 ×2; 36430; 96366; 96375; 96365; 36415; 93005; 86900; 86901; 83921; 82747; 86902; 80053; 80048 ×2; 82607; 82728; 82746; 83540; 83550; 85025 ×2; 85027; 85610 ×2; 85730; 86850; 86920; 86870; 86880; 82272; 84165; 86334; 83883; 76700; G0378 ×3; P9016; P9047; C9113 ×3

== ENCOUNTER 2020-09-25 12:14 | Day surgery (SDC) | payer OTHER ==
[2020-09-25 12:26] VITALS: RESP 16; TEMP 98.1
[2020-09-25 12:52] LABS: Mean Platelet Volume 8.7; Platelet Count 136 k/uL (150-450)
[2020-09-25 12:59] LABS: African American GFR (CKD) >90 (>60 ml/min/1.73 sqM); Non-African American GFR(CKD) 88 (>60 ml/min/1.73 sqM)
[2020-09-25 13:13] LABS: INR 1.2 (<1.2); Prothrombin Time 12.5 sec (9.0-12.0)
[2020-09-25] MEDS: ALBUMIN HUMAN 25% 50 ML in EMPTY BAG 1 BAG IVPB SCH ×4 (13:55→14:42)
[2020-09-25 15:08] VITALS: BP 125/76; PULSE 82
--- NOTE | 2020-09-26 08:49 | US ---
Ultrasound-guided paracentesis. DATE OF EXAM: 09/25/2020 CLINICAL HISTORY: Ascites The procedure was discussed with the patient. The risks, complications, benefits, and alternatives we re discussed and any questions were answered. Informed consent was obtained. The patient was placed s upine on the ultrasound table and prepped and draped in the usual sterile fashion. All elements of maximal barrier technique were utilized. Under ultrasound guidance, access into the right lower quadrant was obtained, via the paracentesis catheter system and direct ultrasound guidanc e. Approximately 9.9 liters of straw-colored fluid was removed. The patient was stable throughout the pr ocedure and remained stable upon discharge from Department of Radiology. IMPRESSION: Successful paracentesis under ultrasound guidance.
== END 2020-09-25 15:20 | disposition home or self-care (01) ==
LOC: RADPROMAIN 12:14
PROVIDERS: ATTEND Internal Medicine Gastroenterology
DX: R18.8 Other ascites (principal)
CPT/HCPCS: 49083; 82565; 85049; 85610; 36415; P9047

== ENCOUNTER 2020-10-02 12:14 | Day surgery (SDC) | payer OTHER ==
[2020-10-02 12:28] VITALS: RESP 16; TEMP 97.8
[2020-10-02 13:09] LABS: INR 1.2 (<1.2); Prothrombin Time 12.1 sec (9.0-12.0)
[2020-10-02 13:20] LABS: African American GFR (CKD) >90 (>60 ml/min/1.73 sqM); Mean Platelet Volume 7.2; Non-African American GFR(CKD) >90 (>60 ml/min/1.73 sqM); Platelet Count 221 k/uL (150-450)
[2020-10-02] MEDS: ALBUMIN HUMAN 25% 50 ML in EMPTY BAG 1 BAG IVPB SCH ×4 (13:48→14:35)
[2020-10-02 15:04] VITALS: BP 126/71; PULSE 81
--- NOTE | 2020-10-02 15:40 | US ---
Ultrasound-guided paracentesis. DATE OF EXAM: 10/02/2020 CLINICAL HISTORY: Ascites The procedure was discussed with the patient. The risks, complications, benefits, and alternatives we re discussed and any questions were answered. Informed consent was obtained. The patient was placed s upine on the ultrasound table and prepped and draped in the usual sterile fashion. All elements of maximal barrier technique were utilized. Under ultrasound guidance, access into the right lower quadrant was obtained, via the paracentesis catheter system and direct ultrasound guidanc e. Approximately 9.6 liters of straw-colored fluid was removed. The patient was stable throughout the pr ocedure and remained stable upon discharge from Department of Radiology. IMPRESSION: Successful paracentesis under ultrasound guidance.
== END 2020-10-02 15:13 | disposition home or self-care (01) ==
LOC: RADPROMAIN 12:14
PROVIDERS: ATTEND Internal Medicine Gastroenterology
DX: K70.31 Alcoholic cirrhosis of liver with ascites (principal)
CPT/HCPCS: 82565; 85049; 85610; 36415; 49083; P9047

== ENCOUNTER 2020-10-09 12:12 | Day surgery (SDC) | payer OTHER ==
[2020-10-09 12:54] LABS: Mean Platelet Volume 8.3; Platelet Count 136 k/uL (150-450)
[2020-10-09 13:05] LABS: African American GFR (CKD) >90 (>60 ml/min/1.73 sqM); Non-African American GFR(CKD) 86 (>60 ml/min/1.73 sqM)
[2020-10-09 13:16] LABS: INR 1.2 (<1.2); Prothrombin Time 12.3 sec (9.0-12.0)
[2020-10-09 13:24] VITALS: TEMP 98.3
[2020-10-09] MEDS: ALBUMIN HUMAN 25% 50 ML in EMPTY BAG 1 BAG IVPB SCH ×4 (13:49→14:38)
[2020-10-09 15:48] VITALS: BP 127/76; PULSE 90; RESP 16
--- NOTE | 2020-10-10 06:51 | US ---
EXAMINATION TYPE: US paracentesis abd w/image DATE OF EXAM: 10/09/2020 COMPARISON: NONE HISTORY: Ascites. PROCEDURE: Maximal barrier technique was utilized. The skin overlying a suitable pocket of fluid was localized with ultrasound and the overlying skin was prepped and draped. Ultrasound was utilized with sterile technique. Lidocaine was used for local anesthesia and a skin carlos made with a scalpel. Catheter was advanced under direct ultrasound guidance into a suitable pocket of fluid and approximately 10.7 lite rs of serous fluid were removed. Catheter was withdrawn and hemostasis achieved. There is no immedi ate complication; the patient is discharged in stable condition. IMPRESSION: STATUS POST ULTRASOUND GUIDED PARACENTESIS FOR PALLIATION OF ASCITES. THIS PROCEDURE WA S PERFORMED BY THE UNDERSIGNED.
== END 2020-10-09 15:45 | disposition home or self-care (01) ==
LOC: RADPROMAIN 12:12
PROVIDERS: ATTEND Internal Medicine Gastroenterology
DX: K70.31 Alcoholic cirrhosis of liver with ascites (principal)
CPT/HCPCS: 82565; 85049; 85610; 36415; 49083; P9047

== ENCOUNTER 2020-10-17 09:17 | Day surgery (SDC) | payer OTHER ==
[2020-10-17 09:23] VITALS: RESP 16; TEMP 97.7
[2020-10-17 10:03] LABS: Mean Platelet Volume 7.8; Platelet Count 144 k/uL (150-450)
[2020-10-17 10:11] LABS: African American GFR (CKD) >90 (>60 ml/min/1.73 sqM); Non-African American GFR(CKD) 82 (>60 ml/min/1.73 sqM)
[2020-10-17 10:18] LABS: INR 1.2 (<1.2); Prothrombin Time 12.1 sec (9.0-12.0)
[2020-10-17] MEDS: ALBUMIN HUMAN 25% 50 ML in EMPTY BAG 1 BAG IVPB SCH ×4 (10:42→11:29)
[2020-10-17 12:01] VITALS: BP 124/74; PULSE 89
--- NOTE | 2020-10-17 13:42 | US ---
EXAMINATION TYPE: US paracentesis abd w/image DATE OF EXAM: 10/17/2020 COMPARISON: NONE HISTORY: Ascites. PROCEDURE: Maximal barrier technique was utilized. The skin overlying a suitable pocket of fluid was localized with ultrasound and the overlying skin was prepped and draped. Ultrasound was utilized with sterile technique. Lidocaine was used for local anesthesia and a skin carlos made with a scalpel. Catheter was advanced under direct ultrasound guidance into a suitable pocket of fluid and approximately 10.1 lite rs of serous fluid were removed. Catheter was withdrawn and hemostasis achieved. There is no immedi ate complication; the patient is discharged in stable condition. IMPRESSION: STATUS POST ULTRASOUND GUIDED PARACENTESIS FOR PALLIATION OF ASCITES. THIS PROCEDURE WA S PERFORMED BY THE UNDERSIGNED.
== END 2020-10-17 12:10 | disposition home or self-care (01) ==
LOC: RADPROMAIN 09:17
PROVIDERS: ATTEND Internal Medicine Gastroenterology
DX: K70.31 Alcoholic cirrhosis of liver with ascites (principal)

== ENCOUNTER 2020-10-23 12:16 | Day surgery (SDC) | payer OTHER ==
[2020-10-23 12:26] VITALS: RESP 16; TEMP 98.4
[2020-10-23 12:52] LABS: Mean Platelet Volume 7.9; Platelet Count 177 k/uL (150-450)
[2020-10-23 12:57] LABS: INR 1.2 (<1.2); Prothrombin Time 12.2 sec (9.0-12.0)
[2020-10-23 13:01] LABS: African American GFR (CKD) >90 (>60 ml/min/1.73 sqM); Non-African American GFR(CKD) 81 (>60 ml/min/1.73 sqM)
[2020-10-23] MEDS: ALBUMIN HUMAN 25% 50 ML in EMPTY BAG 1 BAG IVPB SCH ×4 (13:32→14:19)
[2020-10-23 14:39] VITALS: BP 131/75; PULSE 97
--- NOTE | 2020-10-24 08:20 | US ---
Ultrasound-guided paracentesis. DATE OF EXAM: 10/23/2020 CLINICAL HISTORY: Ascites The procedure was discussed with the patient. The risks, complications, benefits, and alternatives we re discussed and any questions were answered. Informed consent was obtained. The patient was placed s upine on the ultrasound table and prepped and draped in the usual sterile fashion. All elements of maximal barrier technique were utilized. Under ultrasound guidance, access into the right lower quadrant was obtained, via the paracentesis catheter system and direct ultrasound guidanc e. Approximately 10.2 liters of straw-colored fluid was removed. The patient was stable throughout the p rocedure and remained stable upon discharge from Department of Radiology. IMPRESSION: Successful paracentesis under ultrasound guidance.
== END 2020-10-23 14:50 | disposition home or self-care (01) ==
LOC: RADPROMAIN 12:16
PROVIDERS: ATTEND Internal Medicine Gastroenterology
DX: K70.31 Alcoholic cirrhosis of liver with ascites (principal)
CPT/HCPCS: 82565; 85049; 85610; 36415; 49083; P9047

== ENCOUNTER 2020-10-30 12:13 | Day surgery (SDC) | payer OTHER ==
[~2020-10-30 12:13] MED LIST changes: +ALBUMIN HUMAN 25% 50 ML in EMPTY BAG 1 BAG IVPB SCH; -LACTATED RINGERS 1,000 ML IV SCH; -LIDOCAINE 1% (10MG/ML) FOR IV START INTRADERMA PRN
[2020-10-30 12:38] LABS: Mean Platelet Volume 9.7; Platelet Count 158 k/uL (150-450)
[2020-10-30 12:46] VITALS: BP 125/71; PULSE 95; RESP 16; TEMP 97.9
[2020-10-30 12:48] LABS: Anisocytosis Slight; Hypochromasia Marked; MCH 25.7 pg (25.0-35.0); MCHC 29.3 g/dL (31.0-37.0); MCV 87.7 fL (80.0-100.0); Poikilocytosis Slight; RBC 2.05 m/uL (4.30-5.90); WBC 6.6 k/uL (3.8-10.6)
[2020-10-30 12:52] LABS: HGB 5.3 gm/dL (13.0-17.5)
[2020-10-30 12:56] LABS: INR 1.1 (<1.2); Prothrombin Time 11.8 sec (9.0-12.0)
== END 2020-10-30 13:20 | disposition home or self-care (01) ==
LOC: RADPROMAIN 12:13
PROVIDERS: ATTEND Internal Medicine Gastroenterology
DX: D58.2 Other hemoglobinopathies (principal); Z53.09 Procedure and treatment not carried out because of other contraindication
CPT/HCPCS: 36415; 82565; 85027; 85049; 85610

== ENCOUNTER 2020-10-30 13:17 | Observation (INO) | payer OTHER ==
--- NOTE | 2020-10-30 13:50 | ED ---
General Adult HPI - General Chief complaint: Recheck/Abnormal Lab/Rx Stated complaint: Low HgB Time Seen by Provider: 10/30/20 13:27 Source: patient, RN notes reviewed Mode of arrival: wheelchair Limitations: no limitations - History of Present Illness Initial comments: Patient is a pleasant 50-year-old male presenting to the emergency Department with anemia. Patient has chronic anemia secondary to cirrhosis. Patient was scheduled to have paracentesis done today through interventional radiology. Hemoglobin was checked at 5.3 and therefore the patient was sent to the emergency department. Patient does have abdominal distention however states this is fairly normal for him and is only mildly uncomfortable. No recent bleeding or black stools. - Related Data Home Medications Medication Instructions Recorded Confirmed Furosemide [Lasix] 40 mg PO BID 03/29/20 10/30/20 Spironolactone 50 mg PO DAILY 03/29/20 10/30/20 Acetaminophen [Tylenol Extra 1,000 mg PO Q6HR PRN 06/18/20 10/30/20 Strength] Spironolactone [Aldactone] 25 mg PO HS 09/18/20 10/30/20 Allergies Allergy/AdvReac Type Severity Reaction Status Date / Time No Known Allergies Allergy Verified 10/30/20 13:30 Review of Systems ROS Statement: Those systems with pertinent positive or pertinent negative responses have been documented in the HPI. ROS Other: All systems not noted in ROS Statement are negative. Constitutional: Denies: fever Eyes: Denies: eye pain ENT: Denies: ear pain Respiratory: Denies: cough Cardiovascular: Denies: chest pain Endocrine: Denies: fatigue Gastrointestinal: Reports: as per HPI Genitourinary: Denies: dysuria Musculoskeletal: Denies: back pain Skin: Denies: rash Past Medical History Past Medical History: Liver Disease Additional Past Medical History / Comment(s): pancreatitis; etoh, cirrhosis, ascites, thrombocytopenia, anemia History of Any Multi-Drug Resistant Organisms: None Reported Past Surgical History: Cholecystectomy Additional Past Surgical History / Comment(s): multiple large volume paracent esis procedures Past Anesthesia/Blood Transfusion Reactions: No Reported Reaction Past Psychological History: No Psychological Hx Reported Smoking Status: Current every day smoker Past Alcohol Use History: None Reported Past Drug Use History: None Reported - Past Family History Father Family Medical History: Cancer (unknown type) Additional Family Medical History / Comment(s): back surgery Mother Family Medical History: Cancer (unknown type), GI Bleed Additional Family Medical History / Comment(s): stomach issues on intestines with frequent blood transfusions General Exam Limitations: no limitations General appearance: alert, in no apparent distress Head exam: Present: normocephalic Eye exam: Present: other (Pale conjunctiva) Neck exam: Present: normal inspection Respiratory exam: Present: normal lung sounds bilaterally Cardiovascular Exam: Present: regular rate, normal rhythm GI/Abdominal exam: Present: soft, distended (Moderate to severe ascites) Rectal exam: Present: normal inspection, normal rectal tone Extremities exam: Present: normal inspection Neurological exam: Present: alert Psychiatric exam: Present: normal affect, normal mood Skin exam: Present: normal color Course Vital Signs 10/30/20 13:24 Temperature 98.7 F Pulse Rate 87 Respiratory 20 Rate Blood Pressure 134/76 O2 Sat by Pulse 100 Oximetry Medical Decision Making - Medical Decision Making Patient updated on plan. Case was discussed with Dr. chambers, who will admit covering for Dr. Knox Disposition Clinical Impression: Anemia, Cirrhosis of liver, Ascites Disposition: ADMITTED IP TO THIS HOSP Is patient prescribed a controlled substance at d/c from ED?: No Referrals: Fuentes Elise MD [Primary Care Provider] - 1-2 days Decision Time: 14:03
[2020-10-30] MEDS ORDERED: PANTOPRAZOLE 40 MG/10 ML VIAL IVP SCH (14:00)
[2020-10-30] MEDS ORDERED: NALOXONE 0.4 MG/ML 1 ML VIAL IV PRN (14:04)
--- NOTE | 2020-10-31 00:03 | P.HPIM ---
History of Present Illness This is a pleasant 50 years old male with past medical history of pancreatitis; etoh, cirrhosis, ascites, thrombocytopenia, anemia. He is been diagnosed with cirrhosis for the last 3 years secondary to drinking alcohol. He still drinks alcohol occasionally, his last drink was about 3 days ago, he told me usually he takes 2 beers but he mentions he does not drink every day now. Today he was getting to get this scheduled paracentesis when he was noticed to have low hemoglobin of 5.3 so he was referred to emergency room. Itself was lying in bed comfortable with no chest pain or dyspnea. No abdominal pain although it looks significantly distended. 0 vomiting or diarrhea. No urinary complaints. No fever. He denies smoking or illicit drugs. hemodynamically stable Occult blood in the stool is positive Coronavirus nondetected. Hemoglobin is 5.3, WBC is 6.6, platelet count is 158. INR is 1.1 Sodium 133, creatinine elevated at 1.7, magnesium is 1.9, iron saturation is 10.3 which is low. Liver enzymes AST and ALT are not elevated. Bilirubin is slightly up at 2.2. B12 is elevated at 2500 and folate is 14.9 which is acceptable. Review of Systems CONSTITUTIONAL: No fever, no malaise, no fatigue. HEENT: No recent visual problems or hearing problems. Denied any sore throat. CARDIOVASCULAR: No orthopnea, PND, no palpitations, no syncope. PULMONARY: No shortness of breath, no cough, no hemoptysis. GASTROINTESTINAL: No diarrhea, no nausea, no vomiting, no abdominal pain. Normoactive bowel sounds. NEUROLOGICAL: No headaches, no weakness, no numbness. HEMATOLOGICAL: Denies any bleeding or petechiae. GENITOURINARY: Denies any burning micturition, frequency, or urgency. MUSCULOSKELETAL/RHEUMATOLOGICAL: Denies any joint pain, swelling, or any muscle pain. ENDOCRINE: Denies any polyuria or polydipsia. Past Medical History Past Medical History: Liver Disease Additional Past Medical History / Comment(s): pancreatitis; etoh, cirrhosis, ascites, thrombocytopenia, anemia History of Any Multi-Drug Resistant Organisms: None Reported Past Surgical History: Cholecystectomy Additional Past Surgical History / Comment(s): multiple large volume paracentesis procedures Past Anesthesia/Blood Transfusion Reactions: No Reported Reaction Smoking Status: Former smoker - Past Family History Father Family Medical History: Cancer Additional Family Medical History / Comment(s): back surgery Mother Family Medical History: Cancer, GI Bleed Additional Family Medical History / Comment(s): stomach issues on intestines with frequent blood transfusions Medications and Allergies Home Medications Medication Instructions Recorded Confirmed Type Furosemide [Lasix] 40 mg PO BID 03/29/20 10/30/20 History Spironolactone 50 mg PO DAILY 03/29/20 10/30/20 History Acetaminophen [Tylenol Extra 1,000 mg PO Q6HR PRN 06/18/20 10/30/20 History Strength] Spironolactone [Aldactone] 25 mg PO HS 09/18/20 10/30/20 History Allergies Allergy/AdvReac Type Severity Reaction Status Date / Time No Known Allergies Allergy Verified 10/30/20 13:30 Physical Exam Vitals: Vital Signs Temp Pulse Pulse Resp BP BP Pulse Ox 10/30/20 21:01 98.0 F 95 16 113/63 100 10/30/20 20:31 97.9 F 91 16 122/75 99 10/30/20 20:21 98.0 F 95 16 125/72 100 10/30/20 20:00 97.8 F 96 20 120/78 100 10/30/20 17:25 98.2 F 81 20 131/65 99 10/30/20 17:00 81 20 128/68 99 10/30/20 16:00 87 20 126/76 100 10/30/20 15:00 84 20 130/59 100 10/30/20 13:24 98.7 F 87 20 134/76 100 Intake and Output 10/30/20 10/30/20 10/30/20 06:59 14:59 22:59 Intake Total 0 Balance 0 Intake: Blood Product 0 Rc As-1 Unit 0 [id number] Other: # Voids 0 Weight 97.069 kg 97.069 kg GENERAL: The patient is alert and oriented x3, not in any acute distress. Well developed, well nourished. HEENT: Pupils are round and equally reacting to light. EOMI. No scleral icterus. No conjunctival pallor. Normocephalic, atraumatic. No pharyngeal erythema. No thyromegaly. CARDIOVASCULAR: S1 and S2 present. No murmurs, rubs, or gallops. PULMONARY: Chest is clear to auscultation, no wheezing or crackles. -ABDOMEN: Soft, nontender, distended, normoactive bowel sounds. No palpable organomegaly. MUSCULOSKELETAL: No joint swelling or deformity. EXTREMITIES: No cyanosis, clubbing, or pedal edema. NEUROLOGICAL: Gross neurological examination did not reveal any focal deficits. SKIN: No rashes. no petechiae. Results Labs: Abnormal Lab Results - Last 24 Hours (Table) 10/30/20 Range/Units 14:45 Crossmatch See Detail Thrombosis Risk Factor Assmnt - Choose All That Apply Any of the Below Risk Factors Present?: No Other Risk Factors: Yes Assessment and Plan Assessment: Severe anemia mostly likely acute blood loss anemia with positive occult blood in stool Decompensated liver cirrhosis acute kidney injury Alcoholic liver cirrhosis Alcohol abuse History of pancreatitis Plan: This is a pleasant 50 years old male who presents with severe anemia mostly acute GI bleed and alcoholic liver cirrhosis Patient is getting 2 units of blood transfusion, monitor hemoglobin Protonix 40 mg IV twice a day Consults GI/surgical team consult Labs and medication were reviewed.. Continue same treatment. Continue with symptomatic treatment. Resume home medication. Monitor lytes and vitals. DVT and GI prophylaxis. Further recommendationsas per clinical course of the patient DVT prophylaxis: No anticoagulation for GI bleed GI Prophylaxis: Ppi Prognosis is guarded
[2020-10-31] MEDS ORDERED: SPIRONOLACTONE 25 MG TAB PO SCH ×2 (00:15→09:00)
[2020-10-31] MEDS: FUROSEMIDE 40 MG TAB PO SCH ×2 (01:35→10:45)
[2020-10-31] MEDS: PANTOPRAZOLE 40 MG/10 ML VIAL IVP SCH ×2 (01:36→10:46)
[2020-10-31 05:13] LABS: Anisocytosis Slight; Basophils % (A) 0 %; Eosinophils # (A) 0.4 k/uL (0-0.7); Eosinophils % (A) 7 %; Hypochromasia Marked; Lymphocytes # (A) 1.1 k/uL (1.0-4.8); Lymphocytes % (A) 18 %; MCHC 32.8 g/dL (31.0-37.0); MCV 85.2 fL (80.0-100.0); Mean Platelet Volume 9.4; Monocytes # (A) 0.5 k/uL (0-1.0); Monocytes % (A) 8 %; Neutrophils # (A) 3.9 k/uL (1.3-7.7); Neutrophils % (A) 65 %; Platelet Count 127 k/uL (150-450); Poikilocytosis Marked; RBC 2.15 m/uL (4.30-5.90); RDW 16.7 % (11.5-15.5)
[2020-10-31 05:26] LABS: HCT 18.3 % (39.0-53.0)
[2020-10-31 06:31] LABS: ALT 17 U/L (4-49); AST 46 U/L (17-59); African American GFR (CKD) 59 (>60 ml/min/1.73 sqM); Albumin 2.4 g/dL (3.5-5.0); Albumin/Globulin Ratio 0.9; Alkaline Phosphatase 116 U/L (38-126); Anion Gap 7 mmol/L; Blood Urea Nitrogen 28 mg/dL (9-20); Carbon Dioxide 22 mmol/L (22-30); Chloride 101 mmol/L (98-107); Globulin 2.7 g/dL; Glucose 92 mg/dL (74-99); Non-African American GFR(CKD) 51 (>60 ml/min/1.73 sqM); Potassium 4.2 mmol/L (3.5-5.1); Sodium 130 mmol/L (137-145); Total Bilirubin 2.2 mg/dL (0.2-1.3); Total Protein 5.1 g/dL (6.3-8.2)
[2020-10-31 06:37] LABS: Prothrombin Time 12.6 sec (9.0-12.0)
[2020-10-31 06:38] LABS: INR 1.2 (<1.2)
[2020-10-31 17:18] VITALS: PULSE 81
[2020-10-31 19:27] VITALS: BP 128/71; RESP 18; TEMP 98.8
[2020-10-31 21:15] LABS: Anisocytosis Slight; HCT 23.7 % (39.0-53.0); Hypochromasia Marked; MCH 29.2 pg (25.0-35.0); MCHC 33.3 g/dL (31.0-37.0); MCV 87.6 fL (80.0-100.0); Mean Platelet Volume 9.4; Platelet Count 116 k/uL (150-450); Poikilocytosis Marked; RDW 16.1 % (11.5-15.5); WBC 6.9 k/uL (3.8-10.6)
[2020-10-31 21:25] LABS: HGB 7.9 gm/dL (13.0-17.5)
--- NOTE | 2020-11-02 01:11 | P.DS ---
Providers Date of admission: 10/30/20 14:04 Expected date of discharge: 10/31/20 Attending physician: Francisco Skinner MD Primary care physician: [facility] Hospital Course: Final Diagnosis Severe anemia possible acute blood loss anemia with positive occult blood in stool and most probably anemia of chronic disease Decompensated liver cirrhosis acute kidney injury Alcoholic liver cirrhosis Alcohol abuse History of pancreatitis Discharge disposition Patient is being discharged in a stable condition with guarded prognosis to home. Patient will follow-up with pcp in the outpatient setting upon discharge. Patient will follow with [facility] and continue with standing order paracentesis on Wednesday. Total time taken is greater than 35 minutes. Hospital course This is a pleasant 50 years old male with past medical history of pancreatitis; etoh, cirrhosis, ascites, thrombocytopenia, anemia. He is been diagnosed with cirrhosis for the last 3 years secondary to drinking alcohol. He still drinks alcohol occasionally, his last drink was about 3 days ago, he told me usually he takes 2 beers but he mentions he does not drink every day now. Today he was getting to get this scheduled paracentesis when he was noticed to have low hemoglobin of 5.3 so he was referred to emergency room. Itself was lying in bed comfortable with no chest pain or dyspnea. No abdominal pain although it looks significantly distended. 0 vomiting or diarrhea. No urinary complaints. No fever. He denies smoking or illicit drugs. hemodynamically stable Occult blood in the stool is positive Coronavirus nondetected. Hemoglobin is 5.3, WBC is 6.6, platelet count is 158. INR is 1.1 Sodium 133, creatinine elevated at 1.7, magnesium is 1.9, iron saturation is 10.3 which is low. Liver enzymes AST and ALT are not elevated. Bilirubin is slightly up at 2.2. B12 is elevated at 2500 and folate is 14.9 which is acceptable. 10/31/2020 Patient is seen in follow-up with no acute overnight issues noted. Hemoglobin is 6 and will give another 2 units of PRBC and will have received 4 units this admission. Patient will need close outpatient follow up of labs to monitor hemoglobin. Patient was to have paracentesis and unable to be fit in with IR and will continue with weekly standing order every wednesday. Patient to follow up with [facility] outpatient. Patient instructed to hold lasix and aldactone for 2 days and then resume. Patient requesting to go home after transfusion. Currently no reports of chest pain, shortness of breath, or palpitations. Patient is afebrile. No reports of nausea or vomiting and patient is tolerating diet. Patient will be discharged. Repeat hemoglobin status post 2 units is 7.9. GENERAL: The patient is alert and oriented x3, not in any acute distress. Well developed, well nourished. HEENT: Pupils are round and equally reacting to light. EOMI. No scleral icterus. No conjunctival pallor. Normocephalic, atraumatic. No pharyngeal erythema. No thyromegaly. CARDIOVASCULAR: S1 and S2 present. No murmurs, rubs, or gallops. PULMONARY: Chest is clear to auscultation, no wheezing or crackles. ABDOMEN: Soft, nontender, distended, normoactive bowel sounds. No palpable organomegaly. MUSCULOSKELETAL: No joint swelling or deformity. EXTREMITIES: No cyanosis, clubbing, or pedal edema. NEUROLOGICAL: Gross neurological examination did not reveal any focal deficits. SKIN: No rashes. no petechiae. On exam vital signs are stable. Cardio S1, S2 are muffled. Respiratory system shows diminished breath sounds at the bases with no wheezing or rhonchi noted. Abdomen is soft and nontender. Nervous system shows no focal deficits. Please refer to medication reconciliation sheet for a list of medications. Patient Condition at Discharge: Stable Plan - Discharge Summary New Discharge Prescriptions: Continue Spironolactone 50 mg PO DAILY Furosemide [Lasix] 40 mg PO BID Acetaminophen [Tylenol Extra Strength] 1,000 mg PO Q6HR PRN PRN Reason: Pain Spironolactone [Aldactone] 25 mg PO HS Discharge Medication List Furosemide [Lasix] 40 mg PO BID 03/29/20 [History] Spironolactone 50 mg PO DAILY 03/29/20 [History] Acetaminophen [Tylenol Extra Strength] 1,000 mg PO Q6HR PRN 06/18/20 [History] Spironolactone [Aldactone] 25 mg PO HS 09/18/20 [History] Follow up Appointment(s)/Referral(s): Fuentes Elise MD [Primary Care Provider] - 1-2 days Ambulatory/Diagnostic Orders: Complete Blood Count w/diff [LAB.AMB] Location: None Selected Patient Instructions/Handouts: Complete Blood Count (GEN), Ascites (DC), Anemia (DC) Activity/Diet/Wound Care/Special Instructions: Okay for discharge after transfusion and repeat CBC Activity Limited until follow-up Follow-up with GI outpatient follow up primary care provider outpatient Continue to hold Aldactone and Lasix for 1-2 days and resume on Wednesday Keep outpatient appointment for paracentesis Repeat labs in 2-3 days to monitor hemoglobin and sodium Discharge Disposition: HOME SELF-CARE
== END 2020-10-31 22:30 | disposition home or self-care (01) ==
LOC: EC 13:17 → 5NMEDONC 14:04
PROVIDERS: ADMIT Internal Medicine; ATTEND Internal Medicine
DX: K70.31 Alcoholic cirrhosis of liver with ascites (principal); D63.8 Anemia in other chronic diseases classified elsewhere; D62 Acute posthemorrhagic anemia; N17.9 Acute kidney failure, unspecified; R19.5 Other fecal abnormalities; F10.10 Alcohol abuse, uncomplicated; D69.6 Thrombocytopenia, unspecified; F17.200 Nicotine dependence, unspecified, uncomplicated; Z20.822 Contact with and (suspected) exposure to COVID-19; Z79.899 Other long term (current) drug therapy; Z90.49 Acquired absence of other specified parts of digestive tract; Z87.19 Personal history of other diseases of the digestive system; Z98.890 Other specified postprocedural states; Z80.9 Family history of malignant neoplasm, unspecified; Z83.79 Family history of other diseases of the digestive system
CPT/HCPCS: 36430 ×2; 96376; 96374; 99284; 36415; 86900; 86901; 80053; 85025; 85027; 85610; 86850; 86920; 82272; 87635; G0378 ×2; P9016 ×2; C9113 ×2

== ENCOUNTER 2020-11-06 12:09 | Day surgery (SDC) | payer OTHER ==
[2020-11-06 12:20] VITALS: RESP 16; TEMP 97.9
[2020-11-06 12:56] LABS: Mean Platelet Volume 8.3; Platelet Count 132 k/uL (150-450)
[2020-11-06 13:09] LABS: INR 1.2 (<1.2); Prothrombin Time 12.8 sec (9.0-12.0)
[2020-11-06] MEDS: ALBUMIN HUMAN 25% 50 ML in EMPTY BAG 1 BAG IVPB SCH ×4 (13:48→14:31)
[2020-11-06 15:01] VITALS: BP 131/76; PULSE 83
--- NOTE | 2020-11-06 15:58 | US ---
EXAMINATION TYPE: US paracentesis abd w/image DATE OF EXAM: 11/06/2020 COMPARISON: NONE HISTORY: Ascites. PROCEDURE: Maximal barrier technique was utilized. The skin overlying a suitable pocket of fluid was localized with ultrasound and the overlying skin was prepped and draped. Ultrasound was utilized with sterile technique. Lidocaine was used for local anesthesia and a skin carlos made with a scalpel. Catheter was advanced under direct ultrasound guidance into a suitable pocket of fluid and approximately 12.6 lite rs of serous fluid were removed. Catheter was withdrawn and hemostasis achieved. There is no immedi ate complication; the patient is discharged in stable condition. IMPRESSION: STATUS POST ULTRASOUND GUIDED PARACENTESIS FOR PALLIATION OF ASCITES. THIS PROCEDURE WA S PERFORMED BY THE UNDERSIGNED.
== END 2020-11-06 15:20 | disposition home or self-care (01) ==
LOC: RADPROMAIN 12:09
PROVIDERS: ATTEND Internal Medicine Gastroenterology
DX: R18.8 Other ascites (principal)
CPT/HCPCS: 49083; 82565; 85049; 85610; 36415; P9047

== ENCOUNTER 2020-11-13 12:39 | Day surgery (SDC) | payer OTHER ==
[2020-11-13 13:08] LABS: Mean Platelet Volume 9.1; Platelet Count 159 k/uL (150-450)
[2020-11-13 13:11] VITALS: RESP 18; TEMP 97.6
[2020-11-13 13:13] LABS: INR 1.3 (<1.2); Prothrombin Time 13.1 sec (9.0-12.0)
[2020-11-13] MEDS: ALBUMIN HUMAN 25% 50 ML in EMPTY BAG 1 BAG IVPB SCH ×4 (13:45→14:52)
[2020-11-13 15:46] VITALS: BP 142/75; PULSE 80
--- NOTE | 2020-11-13 19:15 | US ---
EXAMINATION TYPE: US paracentesis abd w/image DATE OF EXAM: 11/13/2020 COMPARISON: NONE HISTORY: Ascites. PROCEDURE: Maximal barrier technique was utilized. The skin overlying a suitable pocket of fluid was localized with ultrasound and the overlying skin was prepped and draped. Ultrasound was utilized with sterile technique. Lidocaine was used for local anesthesia and a skin carlos made with a scalpel. Catheter was advanced under direct ultrasound guidance into a suitable pocket of fluid and approximately 13.5 lite rs of serous fluid were removed. Catheter was withdrawn and hemostasis achieved. There is no immedi ate complication; the patient is discharged in stable condition. IMPRESSION: STATUS POST ULTRASOUND GUIDED PARACENTESIS FOR PALLIATION OF ASCITES. THIS PROCEDURE WA S PERFORMED BY THE UNDERSIGNED.
== END 2020-11-13 15:30 | disposition home or self-care (01) ==
LOC: RADPROMAIN 12:39
PROVIDERS: ATTEND Internal Medicine Gastroenterology
DX: R18.8 Other ascites (principal)
CPT/HCPCS: 49083; 82565; 85049; 85610; P9047

== ENCOUNTER 2020-11-20 12:09 | Day surgery (SDC) | payer OTHER ==
[2020-11-20 12:51] LABS: Mean Platelet Volume 8.2; Platelet Count 162 k/uL (150-450)
[2020-11-20 13:01] VITALS: RESP 16; TEMP 98.3
[2020-11-20] MEDS: ALBUMIN HUMAN 25% 50 ML in EMPTY BAG 1 BAG IVPB SCH ×4 (13:02→13:56)
[2020-11-20 13:09] LABS: INR 1.2 (<1.2); Prothrombin Time 12.6 sec (9.0-12.0)
[2020-11-20 15:04] VITALS: BP 125/71; PULSE 87
--- NOTE | 2020-11-20 15:40 | US ---
Ultrasound-guided paracentesis. DATE OF EXAM: 11/20/2020 CLINICAL HISTORY: Ascites The procedure was discussed with the patient. The risks, complications, benefits, and alternatives we re discussed and any questions were answered. Informed consent was obtained. The patient was placed s upine on the ultrasound table and prepped and draped in the usual sterile fashion. All elements of maximal barrier technique were utilized. Under ultrasound guidance, access into the right lower quadrant was obtained, via the paracentesis catheter system and direct ultrasound guidanc e. Approximately 11.4 liters of straw-colored fluid was removed. The patient was stable throughout the p rocedure and remained stable upon discharge from Department of Radiology. IMPRESSION: Successful paracentesis under ultrasound guidance.
== END 2020-11-20 15:05 | disposition home or self-care (01) ==
LOC: RADPROMAIN 12:09
PROVIDERS: ATTEND Internal Medicine Gastroenterology
DX: K70.31 Alcoholic cirrhosis of liver with ascites (principal)
CPT/HCPCS: 82565; 85049; 85610; 36415; 49083; P9047

== ENCOUNTER 2020-11-27 12:13 | Day surgery (SDC) | payer OTHER ==
[2020-11-27 12:24] VITALS: RESP 16; TEMP 98.3
[2020-11-27 13:12] LABS: Platelet Count 201 k/uL (150-450)
[2020-11-27 13:13] LABS: INR 1.1 (<1.2); Prothrombin Time 11.8 sec (9.0-12.0)
[2020-11-27] MEDS: ALBUMIN HUMAN 25% 50 ML in EMPTY BAG 1 BAG IVPB SCH ×4 (13:49→14:36)
[2020-11-27 15:05] VITALS: BP 117/70; PULSE 87
--- NOTE | 2020-11-27 16:23 | US ---
Ultrasound-guided paracentesis. DATE OF EXAM: 11/27/2020 CLINICAL HISTORY: Ascites The procedure was discussed with the patient. The risks, complications, benefits, and alternatives we re discussed and any questions were answered. Informed consent was obtained. The patient was placed s upine on the ultrasound table and prepped and draped in the usual sterile fashion. All elements of maximal barrier technique were utilized. Under ultrasound guidance, access into the right lower quadrant was obtained, via the paracentesis catheter system and direct ultrasound guidanc e. Approximately 11.1 liters of straw-colored fluid was removed. The patient was stable throughout the p rocedure and remained stable upon discharge from Department of Radiology. IMPRESSION: Successful paracentesis under ultrasound guidance.
== END 2020-11-27 15:20 | disposition home or self-care (01) ==
LOC: RADPROMAIN 12:13
PROVIDERS: ATTEND Internal Medicine Gastroenterology
DX: K70.31 Alcoholic cirrhosis of liver with ascites (principal)
CPT/HCPCS: 82565; 85049; 85610; 36415; 49083; P9047

== ENCOUNTER 2020-12-04 12:13 | Day surgery (SDC) | payer OTHER ==
[2020-12-04 12:54] LABS: Mean Platelet Volume 7.8; Platelet Count 173 k/uL (150-450)
[2020-12-04] MEDS: ALBUMIN HUMAN 25% 50 ML in EMPTY BAG 1 BAG IVPB SCH ×4 (13:05→14:02)
[2020-12-04 13:12] VITALS: RESP 16; TEMP 98.1
[2020-12-04 13:15] LABS: INR 1.2 (<1.2); Prothrombin Time 12.1 sec (9.0-12.0)
[2020-12-04 15:31] VITALS: BP 133/74; PULSE 90
--- NOTE | 2020-12-04 16:03 | US ---
EXAMINATION TYPE: US paracentesis abd w/image DATE OF EXAM: 12/04/2020 COMPARISON: NONE HISTORY: Ascites. PROCEDURE: Maximal barrier technique was utilized. The skin overlying a suitable pocket of fluid was localized with ultrasound and the overlying skin was prepped and draped. Ultrasound was utilized with sterile technique. Lidocaine was used for local anesthesia and a skin carlos made with a scalpel. Catheter was advanced under direct ultrasound guidance into a suitable pocket of fluid and approximately 12 liters of serous fluid were removed. Catheter was withdrawn and hemostasis achieved. There is no immediat e complication; the patient is discharged in stable condition. IMPRESSION: STATUS POST ULTRASOUND GUIDED PARACENTESIS FOR PALLIATION OF ASCITES. THIS PROCEDURE WA S PERFORMED BY THE UNDERSIGNED.
== END 2020-12-04 15:15 | disposition home or self-care (01) ==
LOC: RADPROMAIN 12:13
PROVIDERS: ATTEND Internal Medicine Gastroenterology
DX: K70.31 Alcoholic cirrhosis of liver with ascites (principal)
CPT/HCPCS: 82565; 85049; 85610; 36415; 49083; P9047

== ENCOUNTER 2020-12-11 12:17 | Day surgery (SDC) | payer OTHER ==
[2020-12-11 12:44] VITALS: RESP 16; TEMP 98
[2020-12-11 13:06] LABS: Mean Platelet Volume 8.2; Platelet Count 175 k/uL (150-450)
[2020-12-11 13:11] LABS: INR 1.2 (<1.2); Prothrombin Time 12.7 sec (9.0-12.0)
[2020-12-11] MEDS: ALBUMIN HUMAN 25% 50 ML in EMPTY BAG 1 BAG IVPB SCH ×4 (13:43→14:31)
[2020-12-11 15:05] VITALS: BP 127/51; PULSE 89
--- NOTE | 2020-12-11 15:19 | US ---
EXAMINATION TYPE: US paracentesis abd w/image DATE OF EXAM: 12/11/2020 COMPARISON: NONE HISTORY: Ascites. PROCEDURE: Maximal barrier technique was utilized. The skin overlying a suitable pocket of fluid was localized with ultrasound and the overlying skin was prepped and draped. Ultrasound was utilized with sterile technique. Lidocaine was used for local anesthesia and a skin carlos made with a scalpel. Catheter was advanced under direct ultrasound guidance into a suitable pocket of fluid and approximately 10.2 lite rs of serous fluid were removed. Catheter was withdrawn and hemostasis achieved. There is no immedi ate complication; the patient is discharged in stable condition. IMPRESSION: STATUS POST ULTRASOUND GUIDED PARACENTESIS FOR PALLIATION OF ASCITES. THIS PROCEDURE WA S PERFORMED BY THE UNDERSIGNED.
== END 2020-12-11 15:15 | disposition home or self-care (01) ==
LOC: RADPROMAIN 12:17
PROVIDERS: ATTEND Internal Medicine Gastroenterology
DX: K70.31 Alcoholic cirrhosis of liver with ascites (principal)
CPT/HCPCS: 82565; 85049; 85610; 36415; 49083; P9047

== ENCOUNTER 2020-12-18 12:13 | Day surgery (SDC) | payer OTHER ==
[2020-12-18] MEDS: ALBUMIN HUMAN 25% 50 ML in EMPTY BAG 1 BAG IVPB SCH ×4 (13:07→14:06)
[2020-12-18 13:11] VITALS: RESP 16; TEMP 98.1
[2020-12-18 13:13] LABS: INR 1.2 (<1.2); Prothrombin Time 12.2 sec (9.0-12.0)
[2020-12-18 13:16] LABS: Anisocytosis Slight; HCT 32.2 % (39.0-53.0); HGB 10.3 gm/dL (13.0-17.5); MCH 30.7 pg (25.0-35.0); MCHC 32.1 g/dL (31.0-37.0); Macrocytosis Slight; Mean Platelet Volume 7.9; Platelet Count 151 k/uL (150-450); RBC 3.37 m/uL (4.30-5.90); RDW 19.9 % (11.5-15.5); WBC 8.1 k/uL (3.8-10.6)
[2020-12-18 13:19] LABS: MCV 95.6 fL (80.0-100.0)
[2020-12-18 13:49] LABS: Calcium 7.8 mg/dL (8.4-10.2)
[2020-12-18 14:02] LABS: Potassium 5.3 mmol/L (3.5-5.1)
[2020-12-18 15:21] VITALS: BP 137/73; PULSE 82
--- NOTE | 2020-12-18 16:04 | US ---
EXAMINATION TYPE: US paracentesis abd w/image DATE OF EXAM: 12/18/2020 COMPARISON: NONE HISTORY: Ascites. PROCEDURE: Maximal barrier technique was utilized. The skin overlying a suitable pocket of fluid was localized with ultrasound and the overlying skin was prepped and draped. Ultrasound was utilized with sterile technique. Lidocaine was used for local anesthesia and a skin carlos made with a scalpel. Catheter was advanced under direct ultrasound guidance into a suitable pocket of fluid and approximately 10.9 lite rs of serous fluid were removed. Catheter was withdrawn and hemostasis achieved. There is no immedi ate complication; the patient is discharged in stable condition. IMPRESSION: STATUS POST ULTRASOUND GUIDED PARACENTESIS FOR PALLIATION OF ASCITES. THIS PROCEDURE WA S PERFORMED BY THE UNDERSIGNED.
[2020-12-19 20:18] LABS: % Iron Saturation 76.61 (15.00-50.00)
== END 2020-12-18 15:21 | disposition home or self-care (01) ==
LOC: RADPROMAIN 12:13
PROVIDERS: ATTEND Internal Medicine Gastroenterology
DX: K70.31 Alcoholic cirrhosis of liver with ascites (principal)
CPT/HCPCS: 83921; 82747; 80048; 82607; 82728; 83540; 83550; 85027; 85610; 36415; 49083; P9047

== ENCOUNTER 2020-12-27 08:53 | Day surgery (SDC) | payer OTHER ==
[2020-12-27 09:40] LABS: Anisocytosis Slight; Basophils % (A) 0 %; Eosinophils # (A) 0.1 k/uL (0-0.7); Eosinophils % (A) 2 %; HCT 31.5 % (39.0-53.0); HGB 10.1 gm/dL (13.0-17.5); Lymphocytes # (A) 0.5 k/uL (1.0-4.8); Lymphocytes % (A) 7 %; MCH 30.6 pg (25.0-35.0); MCHC 32.2 g/dL (31.0-37.0); MCV 95.2 fL (80.0-100.0); Mean Platelet Volume 7.6; Monocytes # (A) 0.6 k/uL (0-1.0); Monocytes % (A) 8 %; Neutrophils # (A) 6.1 k/uL (1.3-7.7); Neutrophils % (A) 82 %; Platelet Count 155 k/uL (150-450); RBC 3.31 m/uL (4.30-5.90); RDW 18.2 % (11.5-15.5); WBC 7.4 k/uL (3.8-10.6)
[2020-12-27 09:46] LABS: INR 1.1 (<1.2); Prothrombin Time 11.9 sec (9.0-12.0)
[2020-12-27 09:51] LABS: Albumin 2.7 g/dL (3.5-5.0); Calcium 8.1 mg/dL (8.4-10.2); Potassium 4.5 mmol/L (3.5-5.1); Total Bilirubin 1.2 mg/dL (0.2-1.3); Total Protein 5.7 g/dL (6.3-8.2)
[2020-12-27] MEDS: ALBUMIN HUMAN 25% 50 ML in EMPTY BAG 1 BAG IVPB SCH ×4 (10:00→11:00)
[2020-12-27 10:06] VITALS: RESP 18; TEMP 98.1
[2020-12-27 12:49] VITALS: BP 127/74; PULSE 74
--- NOTE | 2020-12-30 15:20 | US ---
Ultrasound-guided paracentesis. DATE OF EXAM: 12/27/2020 CLINICAL HISTORY: Ascites The procedure was discussed with the patient. The risks, complications, benefits, and alternatives we re discussed and any questions were answered. Informed consent was obtained. The patient was placed s upine on the ultrasound table and prepped and draped in the usual sterile fashion. All elements of maximal barrier technique were utilized. Under ultrasound guidance, access into the right lower quadrant was obtained, via the paracentesis catheter system and direct ultrasound guidanc e. Approximately 11.5 liters of straw-colored fluid was removed. The patient was stable throughout the p rocedure and remained stable upon discharge from Department of Radiology. IMPRESSION: Successful paracentesis under ultrasound guidance.
== END 2020-12-27 12:30 | disposition home or self-care (01) ==
LOC: RADPROMAIN 08:53
PROVIDERS: ATTEND Internal Medicine Gastroenterology
DX: R18.8 Other ascites (principal)
CPT/HCPCS: 49083; 80053; 85025; 85610; 82105; 36415; P9047

== ENCOUNTER 2021-01-01 12:11 | Day surgery (SDC) | payer OTHER ==
[2021-01-01 12:28] VITALS: RESP 16
[2021-01-01 12:52] LABS: Platelet Count 198 k/uL (150-450)
[2021-01-01 13:02] LABS: INR 1.2 (<1.2); Prothrombin Time 12.7 sec (9.0-12.0)
[2021-01-01] MEDS: ALBUMIN HUMAN 25% 50 ML in EMPTY BAG 1 BAG IVPB SCH ×4 (14:09→14:48)
[2021-01-01 15:15] VITALS: PULSE 90
[2021-01-01 15:27] VITALS: BP 139/67
--- NOTE | 2021-01-01 16:39 | US ---
EXAMINATION TYPE: US paracentesis abd w/image DATE OF EXAM: 01/01/2021 COMPARISON: NONE HISTORY: Ascites. PROCEDURE: Maximal barrier technique was utilized. The skin overlying a suitable pocket of fluid was localized with ultrasound and the overlying skin was prepped and draped. Ultrasound was utilized with sterile technique. Lidocaine was used for local anesthesia and a skin carlos made with a scalpel. Catheter was advanced under direct ultrasound guidance into a suitable pocket of fluid and approximately 9.2 liter s of serous fluid were removed. Catheter was withdrawn and hemostasis achieved. There is no immedia te complication; the patient is discharged in stable condition. IMPRESSION: STATUS POST ULTRASOUND GUIDED PARACENTESIS FOR PALLIATION OF ASCITES. THIS PROCEDURE WA S PERFORMED BY THE UNDERSIGNED.
== END 2021-01-01 15:40 | disposition home or self-care (01) ==
LOC: RADPROMAIN 12:11
PROVIDERS: ATTEND Internal Medicine Gastroenterology
DX: R18.8 Other ascites (principal)
CPT/HCPCS: 82565; 85049; 85610; 36415; 49083; P9047

== ENCOUNTER 2021-01-08 12:20 | Day surgery (SDC) | payer OTHER ==
[2021-01-08 12:27] VITALS: RESP 16; TEMP 98.1
[2021-01-08 12:54] LABS: Mean Platelet Volume 7.6; Platelet Count 224 k/uL (150-450)
[2021-01-08 13:03] LABS: INR 1.1 (<1.2); Prothrombin Time 11.7 sec (9.0-12.0)
[2021-01-08 13:05] LABS: African American GFR (CKD) >90 (>60 ml/min/1.73 sqM); Non-African American GFR(CKD) >90 (>60 ml/min/1.73 sqM)
[2021-01-08] MEDS: ALBUMIN HUMAN 25% 50 ML in EMPTY BAG 1 BAG IVPB SCH ×4 (13:46→14:32)
[2021-01-08 15:05] VITALS: BP 139/82; PULSE 87
--- NOTE | 2021-01-08 18:40 | US ---
EXAMINATION TYPE: US paracentesis abd w/image DATE OF EXAM: 01/08/2021 COMPARISON: NONE HISTORY: Ascites. PROCEDURE: Maximal barrier technique was utilized. The skin overlying a suitable pocket of fluid was localized with ultrasound and the overlying skin was prepped and draped. Ultrasound was utilized with sterile technique. Lidocaine was used for local anesthesia and a skin carlos made with a scalpel. Catheter was advanced under direct ultrasound guidance into a suitable pocket of fluid and approximately 9.1 liter s of serous fluid were removed. Catheter was withdrawn and hemostasis achieved. There is no immedia te complication; the patient is discharged in stable condition. IMPRESSION: STATUS POST ULTRASOUND GUIDED PARACENTESIS FOR PALLIATION OF ASCITES. THIS PROCEDURE WA S PERFORMED BY THE UNDERSIGNED.
== END 2021-01-08 15:15 | disposition home or self-care (01) ==
LOC: RADPROMAIN 12:20
PROVIDERS: ATTEND Internal Medicine Gastroenterology
DX: R18.8 Other ascites (principal)
CPT/HCPCS: 82565; 85049; 85610; 36415; 49083; P9047

== ENCOUNTER 2021-01-15 12:46 | Day surgery (SDC) | payer OTHER ==
[2021-01-15 13:10] LABS: Mean Platelet Volume 7.4; Platelet Count 230 k/uL (150-450)
[2021-01-15 13:23] VITALS: RESP 16; TEMP 98.3
[2021-01-15] MEDS: ALBUMIN HUMAN 25% 50 ML in EMPTY BAG 1 BAG IVPB SCH ×4 (13:25→14:13)
[2021-01-15 13:28] LABS: African American GFR (CKD) >90 (>60 ml/min/1.73 sqM); Non-African American GFR(CKD) >90 (>60 ml/min/1.73 sqM)
[2021-01-15 13:32] LABS: INR 1.2 (<1.2); Prothrombin Time 12.3 sec (9.0-12.0)
[2021-01-15 15:09] VITALS: BP 147/79; PULSE 102
--- NOTE | 2021-01-16 10:09 | US ---
Ultrasound-guided paracentesis. DATE OF EXAM: 01/15/2021 CLINICAL HISTORY: Ascites The procedure was discussed with the patient. The risks, complications, benefits, and alternatives we re discussed and any questions were answered. Informed consent was obtained. The patient was placed s upine on the ultrasound table and prepped and draped in the usual sterile fashion. All elements of maximal barrier technique were utilized. Under ultrasound guidance, access into the right lower quadrant was obtained, via the paracentesis catheter system and direct ultrasound guidanc e. Approximately 6 liters of straw-colored fluid was removed. The patient was stable throughout the proc edure and remained stable upon discharge from Department of Radiology. IMPRESSION: Successful paracentesis under ultrasound guidance.
== END 2021-01-15 15:18 | disposition home or self-care (01) ==
LOC: RADPROMAIN 12:46
PROVIDERS: ATTEND Internal Medicine Gastroenterology
DX: R18.8 Other ascites (principal)
CPT/HCPCS: 82565; 85049; 85610; 36415; 49083; P9047

== ENCOUNTER 2021-01-22 12:19 | Day surgery (SDC) | payer OTHER ==
[2021-01-22 12:33] VITALS: RESP 16; TEMP 97.7
[2021-01-22 13:01] LABS: Platelet Count 309 k/uL (150-450)
[2021-01-22 13:12] LABS: African American GFR (CKD) >90 (>60 ml/min/1.73 sqM); Non-African American GFR(CKD) >90 (>60 ml/min/1.73 sqM)
[2021-01-22 13:15] LABS: INR 1.2 (<1.2); Prothrombin Time 12.7 sec (9.0-12.0)
[2021-01-22] MEDS: ALBUMIN HUMAN 25% 50 ML in EMPTY BAG 1 BAG IVPB SCH ×3 (13:52→14:29)
[2021-01-22 14:18] VITALS: PULSE 79
[2021-01-22 14:37] VITALS: BP 134/76
--- NOTE | 2021-01-22 14:52 | US ---
EXAMINATION TYPE: US paracentesis abd w/image DATE OF EXAM: 01/22/2021 CLINICAL HISTORY: Ascites The procedure was discussed with the patient. The risks, complications, benefits, and alternatives we re discussed and any questions were answered. Informed consent was obtained. The patient was placed s upine on the ultrasound table and prepped and draped in the usual sterile fashion. All elements of maximal barrier technique were utilized. Under ultrasound guidance, access into the right lower quadrant was obtained, via the paracentesis catheter system and direct ultrasound guidanc e. Approximately 2.8 liters of straw-colored fluid was removed. The patient was stable throughout the pr ocedure and remained stable upon discharge from Department of Radiology. IMPRESSION: Successful therapeutic paracentesis under ultrasound guidance.
== END 2021-01-22 14:50 | disposition home or self-care (01) ==
LOC: RADPROMAIN 12:19
PROVIDERS: ATTEND Internal Medicine Gastroenterology
DX: R18.8 Other ascites (principal)
CPT/HCPCS: 82565; 85049; 85610; 36415; 49083; P9047

== ENCOUNTER 2021-02-05 12:13 | Day surgery (SDC) | payer OTHER ==
--- NOTE | 2021-02-05 13:58 | US ---
Discontinued paracentesis HISTORY: K 70.31 Ultrasound performed for procedure planning of the abdomen due to small amount of fluid, following discussion with the patient, exam is aborted at this time. IMPRESSION: Minimal ascites. Discontinued paracentesis.
== END 2021-02-05 12:52 | disposition home or self-care (01) ==
LOC: RADPROMAIN 12:13
PROVIDERS: ATTEND Internal Medicine Gastroenterology
DX: R18.8 Other ascites (principal)
CPT/HCPCS: 76705

== ENCOUNTER 2021-02-12 12:09 | Day surgery (SDC) | payer OTHER ==
--- NOTE | 2021-02-12 13:22 | US ---
Ultrasound-guided paracentesis. DATE OF EXAM: 02/12/2021 CLINICAL HISTORY: Cirrhosis There is no sizable fluid collection for percutaneous drainage. Procedure was deferred. IMPRESSION: Discontinued paracentesis due to lack of significant ascites.
== END 2021-02-12 12:50 | disposition home or self-care (01) ==
LOC: RADPROMAIN 12:09
PROVIDERS: ATTEND Internal Medicine Gastroenterology
DX: K70.31 Alcoholic cirrhosis of liver with ascites (principal)
CPT/HCPCS: 76705

== ENCOUNTER 2021-02-26 12:10 | Day surgery (SDC) | payer OTHER ==
[2021-02-26 12:21] VITALS: BP 132/83; PULSE 78; RESP 16; TEMP 98.2
--- NOTE | 2021-02-26 12:38 | US ---
Discontinued paracentesis HISTORY: K 70.31 Limited scanning of the abdomen to include the right flank, left flank, right and left lower quadrant s was performed No sizable pocket of fluid was identified. IMPRESSION: Paracentesis is discontinued. No significant fluid identified.
== END 2021-02-26 12:30 | disposition home or self-care (01) ==
LOC: RADPROMAIN 12:10
PROVIDERS: ATTEND Internal Medicine Gastroenterology
DX: K70.31 Alcoholic cirrhosis of liver with ascites (principal)
CPT/HCPCS: 76705